=== PATIENT | male | born 1940 ===

== ENCOUNTER 2016-12-28 22:30 | Emergency (ER) | payer MEDICAID ==
--- NOTE | 2016-12-28 23:24 | C.PDOC ---
History Of Present Illness 76 y/o male presents to ED, [facility] for generalized weakness and fatigue. Patient admits to drinking alcohol tonight. Denies any injury or other complaints. Chief Complaint (Nursing): Weakness/Neurological Deficit History Per: Patient History/Exam Limitations: no limitations Onset/Duration Of Symptoms: Hrs Current Symptoms Are (Timing): Still Present Seizure Or Post-ictal Symptoms: None Fall Associated With With Symptoms: No Recent travel outside of the [place]: No Past Medical History Reviewed: Historical Data, Nursing Documentation, Vital Signs Vital Signs: Last Vital Signs Temp 97.6 F 12/29/16 03:03 Pulse 59 L 12/29/16 03:03 Resp 16 12/29/16 03:03 BP 111/65 12/29/16 03:03 Pulse Ox 95 12/29/16 05:26 - Medical History PMH: Diabetes Family History: States: Unknown Family Hx - Social History Hx Alcohol Use: No Hx Substance Use: No Review Of Systems Except As Marked, All Systems Reviewed And Found Negative. Constitutional: Negative for: Fever, Chills Cardiovascular: Negative for: Chest Pain Respiratory: Negative for: Cough, Shortness of Breath Gastrointestinal: Negative for: Nausea, Vomiting, Abdominal Pain Skin: Negative for: Rash Neurological: Negative for: Headache, Dizziness Physical Exam - Physical Exam Appears: Non-toxic, No Acute Distress, Other (+EtOH on breath, lethargic, no signs of injury, no focal deficits) Skin: Normal Color, Warm, Dry Head: Atraumatic, Normacephalic Chest: Symmetrical Cardiovascular: Rhythm Regular Respiratory: Normal Breath Sounds, No Rales, No Rhonchi, No Wheezing Gastrointestinal/Abdominal: Soft, No Tenderness, No Guarding, No Rebound Back: Normal Inspection Extremity: Normal ROM, Capillary Refill (< 2 sec. ) Neurological/Psych: Oriented x3, Other (no focal deficits) ED Course And Treatment - Laboratory Results Result Diagrams: 12/28/16 23:33 12/29/16 04:51 O2 Sat by Pulse Oximetry: 95 (RA) Pulse Ox Interpretation: Normal Progress Note: Labs ordered and reviewed. Reevaluation Time: 06:00 (Patient feels better aftyer IV hydration) Reassessment Condition: Improved Disposition Counseled Patient/Family Regarding: Diagnosis - Disposition Referrals: [facility] [Outside] Disposition: HOME/ ROUTINE Disposition Time: 06:00 Condition: STABLE Instructions: Dehydration (DC) - POA Present On Arrival: None - Clinical Impression Clinical Impression: Dehydration syndrome, Homelessness - Scribe Statement The provider has reviewed the documentation as recorded by the Vivi Jeffries Provider Scribe Attestation: All medical record entries made by the Saskiaibe were at my direction and personally dictated by me. I have reviewed the chart and agree that the record accurately reflects my personal performance of the history, physical exam, medical decision making, and the department course for this patient. I have also personally directed, reviewed, and agree with the discharge instructions and disposition.
[2016-12-28 23:35] LABS: BASO % 0.3 % (0.0-2.0); EOS # 0.1 K/uL (0.0-0.7); EOS % 1.6 % (0.0-4.0); HEMATOCRIT 37.4 % (35.0-51.0); LYMPH # 1.6 K/uL (1.0-4.3); LYMPH % 17.2 % (20.0-40.0); MEAN CELL VOLUME 91.8 fL (80.0-94.0); MEAN CORPUSCULAR HEMOGLOBIN 31.1 pg (27.0-31.0); MEAN CORPUSCULAR HGB CONC 33.9 g/dL (33.0-37.0); MEAN PLATELET VOLUME 8.8 fL (7.2-11.7); MONO % 11.2 % (0.0-10.0); RED CELL DISTRIBUTION WIDTH 14.1 % (11.5-14.5); WHITE BLOOD COUNT 9.1 K/uL (4.8-10.8)
[2016-12-28 23:43] LABS: CHLORIDE 99 mmol/L (98-107)
[2016-12-28 23:45] LABS: POTASSIUM 4.1 mmol/L (3.6-5.2); SODIUM 140 mmol/L (132-148)
[2016-12-28 23:47] LABS: ALB/GLOB RATIO 1.2 (1.0-2.1); ALKALINE PHOSPHATASE 108 U/L (38-126); ALT/SGPT 22 U/L (21-72); AST/SGOT 44 U/L (17-59); BILIRUBIN,TOTAL 1.1 mg/dL (0.2-1.3); BLOOD UREA NITROGEN 35 mg/dL (9-20); CARBON DIOXIDE 28 mmol/L (22-30); GFR AFRICAN-AMERICAN > 60
[2016-12-28 23:48] LABS: ALCOHOL SERUM < 10 mg/dl (0-10); CALCIUM 8.9 mg/dl (8.6-10.4); GLUCOSE,RANDOM 155 mg/dL (75-110)
[2016-12-29] MEDS ORDERED: Sodium Chloride 0.9% 1,000 ML IV ONE ×2 (00:22→00:23)
[2016-12-29 03:04] VITALS: RESP 16
[2016-12-29 04:52] LABS: URINE BILIRUBIN NEGATIVE (NEGATIVE); URINE BLOOD NEGATIVE (NEGATIVE); URINE COLOR Yellow (YELLOW); URINE GLUCOSE (UA) NORMAL (Normal); URINE KETONE NEGATIVE (NEGATIVE); URINE LEUKOCYTE ESTERASE NEG Leu/uL (Negative); URINE PROTEIN NEGATIVE (NEGATIVE); URINE UROBILINOGEN NORMAL mg/dL (0.2-1.0)
[2016-12-29 05:23] LABS: CHLORIDE 103 mmol/L (98-107); POTASSIUM 4.2 mmol/L (3.6-5.2); SODIUM 141 mmol/L (132-148)
[2016-12-29 05:26] LABS: BLOOD UREA NITROGEN 30 mg/dL (9-20); CARBON DIOXIDE 27 mmol/L (22-30); GFR AFRICAN-AMERICAN > 60; GLUCOSE,RANDOM 108 mg/dL (75-110)
[2016-12-29 05:27] LABS: CALCIUM 8.1 mg/dl (8.6-10.4)
[2016-12-29 05:58] VITALS: BP 131/64; PULSE 62; TEMP 98.4; O2SAT 98
== END 2016-12-29 06:02 | disposition home or self-care (01) ==
LOC: C.ER 22:30
DX: E86.0 Dehydration (principal); Z59.0 Homelessness
CPT/HCPCS: 80048; 80053; 80320; 80324; 80345; 80346; 80349; 80353; 80358; 80361; 81001; 82948; 83992; 85025; 96360; 96361; 99285; J7040

== ENCOUNTER 2016-12-29 11:51 | Inpatient (IN) | payer MEDICAID ==
[2016-12-29 13:35] LABS: BASO % 0.6 % (0.0-2.0); EOS # 0.1 K/uL (0.0-0.7); EOS % 1.6 % (0.0-4.0); HEMATOCRIT 40.9 % (35.0-51.0); LYMPH # 1.5 K/uL (1.0-4.3); LYMPH % 19.4 % (20.0-40.0); MEAN CELL VOLUME 93.2 fL (80.0-94.0); MEAN CORPUSCULAR HEMOGLOBIN 30.9 pg (27.0-31.0); MEAN CORPUSCULAR HGB CONC 33.1 g/dL (33.0-37.0); MEAN PLATELET VOLUME 9.5 fL (7.2-11.7); MONO # 0.8 K/uL (0.0-0.8); MONO % 9.6 % (0.0-10.0); RED CELL DISTRIBUTION WIDTH 14.2 % (11.5-14.5); WHITE BLOOD COUNT 7.9 K/uL (4.8-10.8)
[2016-12-29 13:42] LABS: CHLORIDE 101 mmol/L (98-107); SODIUM 142 mmol/L (132-148)
[2016-12-29 13:43] LABS: POTASSIUM 4.1 mmol/L (3.6-5.2)
[2016-12-29 13:44] LABS: CHOLESTEROL 129 mg/dL (0-199); GFR AFRICAN-AMERICAN > 60
--- NOTE | 2016-12-29 13:44 | RAD ---
HISTORY: adm COMPARISON: None available TECHNIQUE: Chest, one view. FINDINGS: Examination limited by habitus, patient obliquity, and hypoinflation. LUNGS: Patchy right lower lobe opacities may reflect atelectasis or pneumonia. No large pleural effusion or definite pneumothorax. Please note that chest x-ray has limited sensitivity for the detection of pulmonary masses. CARDIOVASCULAR: Heart size appears top normal. OSSEOUS STRUCTURES: Degenerative changes of the spine. VISUALIZED UPPER ABDOMEN: Elevation of the left hemidiaphragm. OTHER FINDINGS: None. IMPRESSION: Patchy right lower lobe opacities may reflect atelectasis or pneumonia.
[2016-12-29 13:45] LABS: ALB/GLOB RATIO 1.2 (1.0-2.1); ALKALINE PHOSPHATASE 115 U/L (38-126); ALT/SGPT 18 U/L (21-72); AST/SGOT 55 U/L (17-59); BILIRUBIN,TOTAL 1.3 mg/dL (0.2-1.3); BLOOD UREA NITROGEN 28 mg/dL (9-20); CALCIUM 8.8 mg/dl (8.6-10.4); CARBON DIOXIDE 29 mmol/L (22-30); GLUCOSE,RANDOM 87 mg/dL (75-110); TOTAL PROTEIN 7.4 g/dL (6.3-8.3)
--- NOTE | 2016-12-29 14:04 | CT ---
PROCEDURE: CT HEAD WITHOUT CONTRAST. HISTORY: confusion, falls, ? SDH COMPARISON: None available. TECHNIQUE: Axial computed tomography images were obtained through the head/brain without intravenous contrast. Radiation dose: Total exam DLP = 810.37 mGy-cm. This CT exam was performed using one or more of the following dose reduction techniques: Automated exposure control, adjustment of the mA and/or kV according to patient size, and/or use of iterative reconstruction technique. FINDINGS: HEMORRHAGE: Large bilateral frontoparietal subdural hematomas are present left larger than right. The right-sided which is smaller and more hypodense than the left. The age of the left the collection appears subacute to chronic or as the right sided collection appears more chronic of though there are areas of more hyperdense hemorrhage within the right-sided collection. The collections exert significant mass effect with compression of both cerebral hemispheres left greater than right. There is slight illz-wi-sdnmr midline shift with of the septum pellucidum shift across midline by approximately 6.58 mm. Additionally, there may also be mild diffuse cerebral edema. Note these findings were discussed with Dr. Estrada at 1:45 p.m. with written down and read back BRAIN: As above. There may also be a questionable edema versus mild localized pre-existing periventricular white matter ischemic changes left apparent frontal horn white matter VENTRICLES: Ventricles are significantly compressed by the aforementioned mass effect as above. CALVARIUM: Unremarkable. PARANASAL SINUSES: Unremarkable as visualized. No significant inflammatory changes. MASTOID AIR CELLS: Unremarkable as visualized. No inflammatory changes. OTHER FINDINGS: None. IMPRESSION: Large bilateral frontoparietal subdural hematomas left larger than right. Left side is subacute to chronic and right-sided more chronic in appearance. Significant mass effect with compression of both cerebral hemispheres and mild gzll-xt-bhnqz midline shift of. Marked compression of the ventricles as well. Findings also suggest mild diffuse cerebral edema. Emergency room physician aware as described.
--- NOTE | 2016-12-29 14:32 | C.PDOC ---
History Of Present Illness 76 y/o male presents to the ED in [facility] for ataxia. Pt was seen in ED overnight for homelessness and questionable alcohol abuse. pt states hasn't drank alcohol in years. Lives in [facility]. Pt denies difficulty walking ; has no complaints, requesting ride home. Time Seen by Provider: 12/29/16 13:08 Chief Complaint (Nursing): Altered Mental Status History Per: Patient History/Exam Limitations: None Onset/Duration Of Symptoms: Hrs Current Symptoms Are (Timing): Still Present Exacerbating Factor(s): Unknown Recent travel outside of the [place]: No Past Medical History Reviewed: Historical Data, Nursing Documentation, Vital Signs Vital Signs: Last Vital Signs Temp 98.0 F 12/29/16 14:11 Pulse 55 L 12/29/16 14:11 Resp 17 12/29/16 14:11 BP 137/65 12/29/16 14:11 Pulse Ox 96 12/29/16 14:52 - Medical History PMH: Diabetes Family History: States: Unknown Family Hx - Social History Hx Alcohol Use: No Hx Substance Use: No Review Of Systems Except As Marked, All Systems Reviewed And Found Negative. Neurological: Positive for: Other (ataxia) Physical Exam - Physical Exam Appears: Non-toxic, No Acute Distress, Other (egyptian speaking) Skin: Warm, Dry, No Rash, Other (No wounds noted) Head: Atraumatic, Normacephalic Neck: Normal ROM, Supple Chest: Symmetrical Cardiovascular: Rhythm Regular Respiratory: Normal Breath Sounds, No Rales, No Rhonchi, No Wheezing Gastrointestinal/Abdominal: Soft, No Tenderness Extremity: Bilateral: Atraumatic Neurological/Psych: Oriented x3 ED Course And Treatment - Laboratory Results Result Diagrams: 12/29/16 13:20 12/29/16 13:20 Lab Interpretation: Normal (inr 1.0) ECG: Interpreted By [facility] ECG Rhythm: Sinus Rhythm ECG Interpretation: Normal Rate From EC (BPM) O2 Sat by Pulse Oximetry: 96 (room air) Pulse Ox Interpretation: Normal - Radiology CXR: Interpreted by [facility] CXR Interpretation: Yes: No Acute Disease, Other (hazy RLL ? atalectasis, low susp PNA) - CT Scan/US CT head Other Rad Studies (CT/US): Read By Radiologist, Radiology Report Reviewed CT/US Interpretation: Accession No. : [id number]. Patient Name / ID : CHARISSE SAXENA / [id number]. Exam Date : 12/29/2016 13:32:41 ( Approved ). Study Comment : Sex / Age : M / [id number]. Creator : abi shaikh. Dictator : Oral Mcintosh MD. Health Teacher : Assistant Case Manager : Oral Mcintosh MD. Approver2 : Report Date : 12/29/2016 13:37:20. My Comment : . PROCEDURE: CT HEAD WITHOUT CONTRAST. HISTORY: confusion, falls, ? SDH. COMPARISON: None available. TECHNIQUE: Axial computed tomography images were obtained through the head/brain without intravenous contrast. Radiation dose: Total exam DLP = 810.37 mGy-cm. This CT exam was performed using one or more of the following dose reduction techniques: Automated exposure control, adjustment of the mA and/or kV according to patient size, and/or use of iterative reconstruction technique. FINDINGS: HEMORRHAGE: Large bilateral frontoparietal subdural hematomas are present left larger than right. The right -sided which is smaller and more hypodense than the left. The age of the left the collection appears subacute to chronic or as the right sided collection appears more chronic of though there are areas of more hyperdense hemorrhage within the right-sided collection. The collections exert significant mass effect with compression of both cerebral hemispheres left greater than right. There is slight dajl-rc-dtgkl midline shift with of the septum pellucidum shift across midline by approximately 6.58 mm. Additionally, there may also be mild diffuse cerebral edema. Note these findings were discussed with Dr. Estrada at 1: 45 p.m. with written down and read back. BRAIN: As above. There may also be a questionable edema versus mild localized pre-existing periventricular white matter ischemic changes left apparent frontal horn white matter. VENTRICLES: Ventricles are significantly compressed by the aforementioned mass effect as above. CALVARIUM: Unremarkable. PARANASAL SINUSES: Unremarkable as visualized. No significant inflammatory changes. MASTOID AIR CELLS: Unremarkable as visualized. No inflammatory changes. OTHER FINDINGS: None. IMPRESSION: Large bilateral frontoparietal subdural hematomas left larger than right. Left side is subacute to chronic and right-sided more chronic in appearance. Significant mass effect with compression of both cerebral hemispheres and mild zaug-ff-essxt midline shift of. Marked compression of the ventricles as well. Findings also suggest mild diffuse cerebral edema. Emergency room physician aware as described. Reevaluation Time: 14:31 Reassessment Condition: Improved - Physician Consult Information Outcome Of Conversation: 1430: d/w Dr. Gill- NSGY plate finisher- ok to Tele Obs ( considering probable chronic nature of SDH's and pt's stability), hydrate and HOB 30^, plan for surgery in AM, NPO 12MN. 1430: d/w Dr Garzon- Hospitalist Food Service Aide- ok to Tele Obs. Medical Decision Making Medical Decision Making: b/l subacute/chronic SDH's Disposition Doctor Will See Patient In The: Hospital Counseled Patient/Family Regarding: Studies Performed, Diagnosis - Disposition Disposition: HOSPITALIZED Disposition Time: 14:32 Condition: GOOD - Clinical Impression Clinical Impression: Ataxia, Subdural hematoma - Scribe Statement The provider has reviewed the documentation as recorded by the Vivi Beck Provider Attestation: All medical record entries made by the Vivi were at my direction and personally dictated by me. I have reviewed the chart and agree that the record accurately reflects my personal performance of the history, physical exam, medical decision making, and the department course for this patient. I have also personally directed, reviewed, and agree with the discharge instructions and disposition.
--- NOTE | 2016-12-29 14:45 | CP.PCM.HP ---
<Katrin Burton - Last Filed: 12/29/16 20:07> History of Present Illness - History of Present Illness History of Present Illness: Please note patient is AO x 1 and is a poor historian; he is oriented to self but does not know where he is and believes it is 1987. HPI: Patient is a 76 year old male PMHx of Hypertension, Hypercholesterolemia, DM2 who was found in the lobby having ataxic gait and was sent to the ED. As per patient he was not having any difficulties walking. He was seen in the ED on 12/28 for generalized weakness and fatigue and was discharged for dehydration syndrome. On this admission patient had no acute complaints but was oriented only to self; he believed it was 1987 and was not sure where he was. He reports that he had a fall on Wednesday which was witnessed by his girlfriend in a parking lot. He denies any loss of consciousness and believes he fell on his side and does not remember hitting his head. Patient reports he does not drink and has not had a drink in 14 years. He denied any acute headaches, dizziness, chest pain, difficulty breathing, abdominal pain, nausea, vomiting, bowel/bladder complaints, bowel/bladder incontinence, difficulty walking, pain in his legs bilaterally, easy bruising, easy bleeding, focal deficits, changes in weight/ appetite. Patient reports a lot of sick contacts in the [facility]. PMD: Dr. Deluna PMHx: Hypertension, Hypercholesterolemia, DM2 Meds: Lipitor 20mg PO HS, Coreg 6.25mg PO BID, Digoxin 0.25mg PO daily, Lasix 20mg PO BID, Lisinopril 20mg PO daily, Metformin 500mg PO BID, ASA 81mg po daily ALL: NKDA PSur [facility] cardiac stents at [facility]?, Prostate surgery 1980 in [place] PHospitalizations: denies PED: 12/28 for dehydration FamHx: mother with DM and father with unknown cancer SocHx: reports he used to smoke 2 cigarettes/ day and drink alcohol but after being incarcerated in the 80s he quit everything. 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 Patient denies any drug use. He lives at [facility]. ROS: denied headaches, dizziness, chest pain, difficulty breathing, abdominal pain, nausea, vomiting, bowel/bladder complaints, bowel/bladder incontinence, difficulty walking, pain in his legs bilaterally, easy bruising, easy bleeding, focal deficits, changes in weight/appetite. ED Course: routine labwork, head CT showing large bilateral frontoparietal subdural hematomas left larger than right. Left side is subacute to chronic and right-sided more chronic in appearance. Significant mass effect with compression of both cerebral hemispheres and mild wpnp-uq-pmqti midline shift of. Marked compression of the ventricles as well. Findings also suggest mild diffuse cerebral edema; CXR showing patchy R lower lobe opacities reflecting posisble atelectasis or pneumonia, EKG showing sinus bradycardia with 1st degree AV block. Present on Admission - Present on Admission Any Indicators Present on Admission: No Review of Systems - Constitutional Constitutional: As Per HPI. absent: Chills, Fever - EENT Eyes: As Per HPI. absent: Blurred Vision Ears: As Per HPI. absent: Dizziness Nose/Mouth/Throat: As Per HPI. absent: Sore Throat - Cardiovascular Cardiovascular: As Per HPI. absent: Chest Pain, Dyspnea, Leg Edema, Palpitations - Respiratory Respiratory: As Per HPI. absent: Cough, Dyspnea, Dyspnea on Exertion, Chest Congestion - Gastrointestinal Gastrointestinal: As Per HPI. absent: Abdominal Pain, Constipation, Diarrhea, Nausea, Vomiting - Genitourinary Genitourinary: As Per HPI. absent: Change in Urinary Stream, Dysuria, Urinary Incontinence - Musculoskeletal Musculoskeletal: As Per HPI. absent: Abnormal Gait, Back Pain, Muscle Weakness , Numbness, Tingling - Integumentary Integumentary: As Per HPI. absent: Dry Skin, Rash - Neurological Neurological: As Per HPI. absent: Abnormal Gait, Dizziness, Numbness, Focal Weakness, Headaches, Memory Loss, Syncope, Tingling - Psychiatric Psychiatric: As Per HPI, Anxiety - Endocrine Endocrine: As Per HPI. absent: Polydipsia, Polyphagia, Polyuria - Hematologic/Lymphatic Hematologic: As Per HPI. absent: Easy Bleeding, Easy Bruising, Lymphadenopathy Past Patient History - Past Social History Smoking Status: Never Smoked - ENDOCRINE/METABOLIC Hx Diabetes Mellitus Type 2: Yes - PSYCHIATRIC Hx Substance Use: No - ANESTHESIA Hx Anesthesia: Yes Hx Anesthesia Reactions: No Meds Allergies/Adverse Reactions: Allergies Allergy/AdvReac Type Severity Reaction Status Date / Time No Known Allergies Allergy Verified 12/29/16 12:23 Physical Exam - Constitutional Appears: Non-toxic, No Acute Distress, Confused (but follows commands well) - Head Exam Head Exam: ATRAUMATIC, NORMAL INSPECTION, NORMOCEPHALIC - Eye Exam Eye Exam: EOMI, Normal appearance. absent: Conjunctival injection, Scleral icterus Pupil Exam: NORMAL ACCOMODATION - ENT Exam ENT Exam: Mucous Membranes Moist - Neck Exam Neck exam: Positive for: Full Rom, Normal Inspection. Negative for: Tenderness - Respiratory Exam Respiratory Exam: Clear to Auscultation Bilateral, NORMAL BREATHING PATTERN. absent: Rales, Rhonchi, Wheezes - Cardiovascular Exam Cardiovascular Exam: Bradycardia, REGULAR RHYTHM, +S1, +S2. absent: Systolic Murmur - GI/Abdominal Exam GI & Abdominal Exam: Normal Bowel Sounds, Soft. absent: Firm, Guarding, Rigid, Tenderness - Extremities Exam Extremities exam: Positive for: normal capillary refill, normal inspection, pedal pulses present. Negative for: calf tenderness, pedal edema, tenderness - Back Exam Back exam: NORMAL INSPECTION. absent: rash noted, vertebral tenderness Additional comments: lipoma noted on upper back - Neurological Exam Neurological exam: Altered, CN II-XII Intact Additional comments: AO x 1 to self - Psychiatric Exam Psychiatric exam: Normal Affect, Normal Mood - Skin Skin Exam: Dry, Intact, Normal Color, Warm Results - Vital Signs Recent Vital Signs: Last Vital Signs Temp 98.0 F 12/29/16 14:11 Pulse 55 L 12/29/16 14:11 Resp 17 12/29/16 14:11 BP 137/65 12/29/16 14:11 Pulse Ox 96 12/29/16 14:33 - Labs Result Diagrams: 12/29/16 13:20 12/29/16 13:20 Labs: Laboratory Results - last 24 hr 12/29/16 12/29/16 12/29/16 12:51 13:20 13:20 WBC 7.9 RBC 4.39 L Hgb 13.6 Hct 40.9 MCV 93.2 MCH 30.9 MCHC 33.1 RDW 14.2 Plt Count 163 MPV 9.5 Neut % (Auto) 68.8 Lymph % (Auto) 19.4 L Maries % (Auto) 9.6 Eos % (Auto) 1.6 Baso % (Auto) 0.6 Neut # 5.4 Lymph # 1.5 Maries # 0.8 Eos # 0.1 Baso # 0.0 PT 11.3 INR 1.0 APTT 26 Sodium Potassium Chloride Carbon Dioxide Anion Gap BUN Creatinine Est GFR ( Amer) Est GFR (Non-Af Amer) POC Glucose (mg/dL) 109 Random Glucose Hemoglobin A1c Calcium Total Bilirubin AST ALT Alkaline Phosphatase Troponin I NT-Pro-B Natriuret Pep Total Protein Albumin Globulin Albumin/Globulin Ratio Triglycerides Cholesterol LDL Cholesterol Direct HDL Cholesterol 12/29/16 12/29/16 13:20 13:20 WBC RBC Hgb Hct MCV MCH MCHC RDW Plt Count MPV Neut % (Auto) Lymph % (Auto) Maries % (Auto) Eos % (Auto) Baso % (Auto) Neut # Lymph # Maries # Eos # Baso # PT INR APTT Sodium 142 Potassium 4.1 Chloride 101 Carbon Dioxide 29 Anion Gap 16 BUN 28 H Creatinine 0.8 Est GFR ( Amer) > 60 Est GFR (Non-Af Amer) > 60 POC Glucose (mg/dL) Random Glucose 87 Hemoglobin A1c 6.8 H Calcium 8.8 Total Bilirubin 1.3 AST 55 ALT 18 L Alkaline Phosphatase 115 Troponin I 0.0260 NT-Pro-B Natriuret Pep 645 Total Protein 7.4 Albumin 4.0 Globulin 3.4 Albumin/Globulin Ratio 1.2 Triglycerides 81 Cholesterol 129 LDL Cholesterol Direct 62 HDL Cholesterol 46 Assessment & Plan - Assessment and Plan (Free Text) Assessment: 76 year old male PMHx of Hypertension, Hypercholesterolemia, DM2 who was found in the lobby having ataxic gait Plan: Bilateral frontoparietal subdural hematomas left larger than right Admit to TELE Head CT: large bilateral frontoparietal subdural hematomas left larger than right. Left side is subacute to chronic and right-sided more chronic in appearance. Significant mass effect with compression of both cerebral hemispheres and mild dpdd-bi-wzehw midline shift of. Marked compression of the ventricles as well. Findings also suggest mild diffuse cerebral edema hold home dose ASA VTE ppx c/i secondary to bleed Neurocheck Q2H For OR 12/[address] Gill on board- help appreciated Bradycardia Nonsymptomatic Patient on TELE EKG showed sinus bradycardia with 1st degree AV block Home dose Coreg changed to 3.125mg PO BID Monitor HR Hx of HTN Coreg 3.125mg PO BID Digoxin 0.25mg PO daily Lisinopril 20mg PO daily Crestor 20mg PO HS Lasix 20mg PO BID Monitor BP Hx of DM Accucheck ACHS Low dose RISS PPX SCDs VTE ppx c/i Pepcid 20mg PO BID Patient for OR in the AM Heart healthy moderate carb diet NPO after midnight for OR 12/[address] Moria Burton PGY1 <Benton Pizarro - Last Filed: 01/20/17 15:20> Results - Vital Signs Recent Vital Signs: Last Vital Signs Temp 98.0 F 01/13/17 15:00 Pulse 108 H 01/13/17 15:00 Resp 20 01/13/17 15:00 BP 130/75 01/13/17 15:00 Pulse Ox 97 01/13/17 15:00 - Labs Result Diagrams: 01/13/17 07:31 01/13/17 07:31 Attending/Attestation - Attestation I have personally seen and examined this patient.: Yes I have fully participated in the care of the patient.: Yes I have reviewed all pertinent clinical information: Yes Notes (Text): Patient seen and examined with the resident. Agree with the resident's evaluation, assessment and plan. Bilateral frontoparietal subdural hematomas left larger than right Admit to TELE Head CT: large bilateral frontoparietal subdural hematomas left larger than right. Left side is subacute to chronic and right-sided more chronic in appearance. Significant mass effect with compression of both cerebral hemispheres and mild sqtp-sl-hozag midline shift of. Marked compression of the ventricles as well. Findings also suggest mild diffuse cerebral edema hold home dose ASA VTE ppx c/i secondary to bleed Neurocheck Q2H For OR 12/[address] Gill on board- help appreciated Bradycardia Nonsymptomatic Patient on TELE EKG showed sinus bradycardia with 1st degree AV block Home dose Coreg changed to 3.125mg PO BID Monitor HR
[2016-12-29 16:27] LABS: RBC URINE < 1 /hpf (0-3); URINE BACTERIA RARE (<OCC); URINE BILIRUBIN NEGATIVE (NEGATIVE); URINE BLOOD NEGATIVE (NEGATIVE); URINE COLOR Yellow (YELLOW); URINE GLUCOSE (UA) NORMAL (Normal); URINE KETONE TRACE mg/dL (NEGATIVE); URINE LEUKOCYTE ESTERASE NEG Leu/uL (Negative); URINE PROTEIN NEGATIVE (NEGATIVE); URINE UROBILINOGEN NORMAL mg/dL (0.2-1.0); WBC URINE < 1 /hpf (0-5)
[2016-12-29] MEDS ORDERED: Digoxin 250 mcg (0.25 mg) Tab PO SCH (18:00)
[2016-12-29 18:50] VITALS: PULSE 55
[2016-12-29] MEDS: (Novolog) Insulin Aspart, Recombinant 100 u/ml 10 ml vial SC SCH (22:12)
[2016-12-30 02:24] LABS: BASO % 0.6 % (0.0-2.0); EOS # 0.1 K/uL (0.0-0.7); EOS % 1.7 % (0.0-4.0); LYMPH # 1.7 K/uL (1.0-4.3); LYMPH % 21.9 % (20.0-40.0); MEAN CELL VOLUME 92.2 fL (80.0-94.0); MEAN CORPUSCULAR HEMOGLOBIN 30.9 pg (27.0-31.0); MEAN CORPUSCULAR HGB CONC 33.5 g/dL (33.0-37.0); MEAN PLATELET VOLUME 9.3 fL (7.2-11.7); MONO # 0.9 K/uL (0.0-0.8); MONO % 11.4 % (0.0-10.0); NRBC % 0.1 % (0.0-2.0); RED CELL DISTRIBUTION WIDTH 14.1 % (11.5-14.5)
[2016-12-30 02:35] LABS: CHLORIDE 100 mmol/L (98-107); POTASSIUM 3.9 mmol/L (3.6-5.2); SODIUM 138 mmol/L (132-148)
[2016-12-30 02:37] LABS: ALB/GLOB RATIO 1.1 (1.0-2.1); AST/SGOT 49 U/L (17-59); CARBON DIOXIDE 28 mmol/L (22-30); GFR AFRICAN-AMERICAN > 60; INR 1.1; TOTAL PROTEIN 6.4 g/dL (6.3-8.3)
[2016-12-30 02:38] LABS: ALKALINE PHOSPHATASE 89 U/L (38-126); ALT/SGPT 28 U/L (21-72); BLOOD UREA NITROGEN 22 mg/dL (9-20); CALCIUM 8.6 mg/dl (8.6-10.4); GLUCOSE,RANDOM 92 mg/dL (75-110); MAGNESIUM 1.8 mg/dL (1.6-2.3); PHOSPHOROUS 3.4 mg/dL (2.5-4.5)
--- NOTE | 2016-12-30 07:27 | CP.PCM.PN ---
<Stephanie Chang - Last Filed: 12/30/16 13:17> Subjective - Date & Time of Evaluation Date of Evaluation: 12/30/16 Time of Evaluation: 07:45 - Subjective Subjective: PGY-1 Medicine Note- Dr. Garzon's service Pt seen and examined in no acute distress. Nursing stated that patient was bradycardic overnight. Pt awake and intelligently alert; however only oriented to self. Patient denies any pain, palpitations, headaches, lightheadedness, visual changes, dyspnea, nausea, vomiting or diarrhea at this time. Objective - Vital Signs/Intake and Output Vital Signs (last 24 hours): Temp Pulse Resp BP Pulse Ox 97.8 F 50 L 20 121/61 100 12/30/16 06:00 12/30/16 06:00 12/30/16 06:00 12/30/16 06:00 12/30/16 06:00 Intake and Output: 12/30/16 12/30/16 06:59 18:59 Intake Total 300 Output Total 200 Balance 100 - Medications Medications: Current Medications Carvedilol (Coreg) 3.125 mg PO BID [facility] Last Admin: 12/29/16 18:49 Dose: Not Given Digoxin (Lanoxin) 0.25 mg PO DAILY@1800 [facility] Last Admin: 12/29/16 18:49 Dose: Not Given Famotidine (Pepcid) 20 mg PO BID [facility] Last Admin: 12/29/16 22:11 Dose: 20 mg Furosemide (Lasix) 20 mg PO BID [facility] Last Admin: 12/29/16 18:41 Dose: 20 mg Insulin Aspart (Novolog) 0 unit SC [facility] PRN Reason: Protocol Last Admin: 12/29/16 22:12 Dose: Not Given Lisinopril (Zestril) 20 mg PO DAILY [facility] Last Admin: 12/29/16 18:41 Dose: 20 mg Pneumococcal Polyvalent Vaccine (Pneumovax 23 Vaccine) 0.5 ml IM .ONCE ONE Stop: 01/01/17 10:01 Rosuvastatin Calcium (Crestor) 20 mg PO HS [facility] Last Admin: 12/29/16 22:11 Dose: 20 mg - Labs Labs: 12/30/16 02:18 12/30/16 02:18 PT 12.2 SECONDS (9.7-12.2) 12/30/16 02:18 INR 1.1 12/30/16 02:18 APTT 27 SECONDS (21-34) 12/30/16 02:18 - Constitutional Appears: Non-toxic, No Acute Distress - Head Exam Head Exam: NORMOCEPHALIC - Eye Exam Eye Exam: EOMI, PERRL - ENT Exam ENT Exam: Mucous Membranes Moist - Neck Exam Neck Exam: Full ROM - Respiratory Exam Respiratory Exam: NORMAL BREATHING PATTERN. absent: Wheezes - Cardiovascular Exam Cardiovascular Exam: REGULAR RHYTHM, +S1, +S2 - GI/Abdominal Exam GI & Abdominal Exam: Soft, Normal Bowel Sounds - Extremities Exam Extremities Exam: Full ROM - Neurological Exam Neurological Exam: Altered, Awake. absent: Oriented x3 - Psychiatric Exam Psychiatric exam: Normal Affect, Normal Mood - Skin Skin Exam: Dry, Intact, Warm Assessment and Plan - Assessment and Plan (Free Text) Assessment: Bilateral frontoparietal subdural hematomas left larger than right Telemetry Head CT 12/30: interval mild worsening of left subdural hematoma since prior exam ; Refer to full report. Head CT on admission 12/29: large bilateral frontoparietal subdural hematomas left larger than right. Left side is subacute to chronic and right-sided more chronic in appearance. Significant mass effect with compression of both cerebral hemispheres and mild fptk-[id number]-yxctb midline shift of. Marked compression of the ventricles as well. Findings also suggest mild diffuse cerebral edema hold home dose ASA VTE ppx c/i secondary to bleed Neurocheck Q2H For OR today Neurosurgery Dr. Gill on board-F/U recommendations Bradycardia Asymptomatic, oxygen via nc EKG showed sinus bradycardia with 1st degree AV block Coreg and Digoxin held Monitor HR Hx of HTN Coreg 3.125mg PO BID-Held bc of bradycardia Digoxin 0.25mg PO daily-Held bc of bradycardia Lisinopril 20mg PO daily Crestor 20mg PO HS Lasix 20mg PO BID Monitor BP Hx of DM Accucheck ACHS Low dose RISS Hgb A1c 6.8 PPX SCDs VTE ppx c/i bc of bleed Pepcid 20mg PO BID-held Heart healthy moderate carb diet NPO after midnight for OR 12/30 <Michael Garzon H - Last Filed: 12/30/16 14:47> Objective - Vital Signs/Intake and Output Vital Signs (last 24 hours): Temp Pulse Resp BP Pulse Ox 97.0 F L 48 L 20 137/54 L 99 12/30/16 08:48 12/30/16 09:17 12/30/16 08:48 12/30/16 08:48 12/30/16 08:48 Intake and Output: 12/30/16 12/30/16 06:59 18:59 Intake Total 300 Output Total 200 Balance 100 - Medications Medications: Current Medications Carvedilol (Coreg) 3.125 mg PO BID [facility] Last Admin: 12/29/16 18:49 Dose: Not Given Digoxin (Lanoxin) 0.25 mg PO DAILY@1800 [facility] Last Admin: 12/29/16 18:49 Dose: Not Given Famotidine (Pepcid) 20 mg PO BID [facility] Last Admin: 12/30/16 10:18 Dose: Not Given Furosemide (Lasix) 20 mg PO BID [facility] Last Admin: 12/30/16 10:18 Dose: Not Given Insulin Aspart (Novolog) 0 unit SC [facility] PRN Reason: Protocol Last Admin: 12/30/16 11:38 Dose: Not Given Lisinopril (Zestril) 20 mg PO DAILY [facility] Last Admin: 12/30/16 10:18 Dose: Not Given Pneumococcal Polyvalent Vaccine (Pneumovax 23 Vaccine) 0.5 ml IM .ONCE ONE Stop: 01/01/17 10:01 Rosuvastatin Calcium (Crestor) 20 mg PO [facility] Last Admin: 12/29/16 22:11 Dose: 20 mg - Labs Labs: 12/30/16 02:18 12/30/16 02:18 PT 12.2 SECONDS (9.7-12.2) 12/30/16 02:18 INR 1.1 12/30/16 02:18 APTT 27 SECONDS (21-34) 12/30/16 02:18 Attending/Attestation - Attestation I have personally seen and examined this patient.: Yes I have fully participated in the care of the patient.: Yes I have reviewed all pertinent clinical information, including history, physical exam and plan: Yes Notes (Text): 12/30/16 14:44 Medical attending: Patient was seen and examined by me, agrees the above note by medical case manager. Patient was seen with the medical case manager. The patient was alert, following commands, and appeared to be following this commands appropriately. He was able to stick his tongue out, elevate his arms, shake my hand on command. His extraocular eye muscles were intact. We did not have him stand and walk with us, per review of the HPI he was very ataxic lobby of the hospital. When I saw him he did not appear to be in any acute distress. We reviewed the CAT scan that he initially had yesterday as well as the new CAT scan done earlier this morning. Currently the patient is pending a neurosurgical evaluation for the subdural hematomas bilaterally. At this time we will try to control the blood pressure as much as possible. However it should be noted that can be bradycardic especially at nighttime. Currently he is heart rate is in the high 50s Thank you very much, Michael Garzon 12/30/16 14:47
[2016-12-30] MEDS: (Novolog) Insulin Aspart, Recombinant 100 u/ml 10 ml vial SC SCH ×3 (07:40→18:40)
[2016-12-30] MEDS ORDERED: cefTRIAXone IV 1 gm in Dextros 50 ML IVPB ONE ×2 (09:07→15:48)
[2016-12-30] MEDS ORDERED: Absorbable Gelatin Sponge Size 100 ONE (09:07)
[2016-12-30] MEDS ORDERED: Bacitracin Ointment 30 GM TUBE ONE (09:07)
[2016-12-30] MEDS ORDERED: Bacitracin 50,000 UNIT in Sodium Chloride 0.9% Irrig 1,000 ML IR SCH (09:07)
[2016-12-30] MEDS ORDERED: Thrombin Topical 20,000 Intl Units Spray Kit TOP ONE (09:07)
--- NOTE | 2016-12-30 10:51 | CT ---
PROCEDURE: CT HEAD WITHOUT CONTRAST. HISTORY: Worsening bradycardia - re-evaluate bleed COMPARISON: Comparison is made to the previous study dated 12/29/2016 TECHNIQUE: Axial computed tomography images were obtained through the head/brain without intravenous contrast. Radiation dose: Total exam DLP = 957.03 mGy-cm. This CT exam was performed using one or more of the following dose reduction techniques: Automated exposure control, adjustment of the mA and/or kV according to patient size, and/or use of iterative reconstruction technique. FINDINGS: HEMORRHAGE: Interval mild increase in the size of subacute left subdural hematoma since the previous exam. Again seen is chronic right subdural hematoma contains foci of high attenuation suggestive of small acute on chronic subdural hemorrhage. No significant interval change in the size of the right subdural hematoma compared to the previous exam. BRAIN: Interval mild worsening of mass effect and compression on the brain since the previous exam. New yntx-or-zniih midline shift is again noted measures approximately 6 millimeter. Diffuse effacement of the brain sulci is again noted slightly worse compared to the previous study. Oohx-qp-vacicqyx effacement of the basilar Systane is also noted. VENTRICLES: Interval mild further decrease in the size of the lateral ventricle due to compression by the bilateral subdural hematoma since the previous exam. CALVARIUM: Unremarkable. PARANASAL SINUSES: Unremarkable as visualized. No significant inflammatory changes. MASTOID AIR CELLS: Unremarkable as visualized. No inflammatory changes. OTHER FINDINGS: None. IMPRESSION: Interval mild worsening of the left subdural hematoma since the previous exam. Interval mild worsening of the mass effect on the left brain and srhb-ee-laypr midline shift since the previous study. Interval worsening of effacement of the basilar Systane since the previous exam. The possibility of subfalcine and transtentorial herniation particularly on the left side should be considered . Preliminary report was submitted by [facility].
--- NOTE | 2016-12-30 10:59 | CARD ---
APPROVED REPORT EKG Measurement Heart [id number] <Conclusion> Sinus bradycardia with 1st degree AV block Left bundle branch block Abnormal ECG
[2016-12-30] MEDS ORDERED: Sodium Chloride 0.9% 1,000 ML IV ONE ×3 (15:15→17:58)
[2016-12-30] MEDS ORDERED: Rocuronium 10 mg/ml (5 ml) ONE (15:19)
[2016-12-30] MEDS ORDERED: Propofol 10 mg/ml Inj (20 ML) ONE ×2 (15:19→17:11)
[2016-12-30] MEDS ORDERED: Neostigmine Methylsulfate 3mg/3ml Syringe IV ONE (16:40)
--- NOTE | 2016-12-30 17:16 | CP.PCM.CON ---
History of Present Illness - History of Present Illness History of Present Illness: Consult Note for nutritional health coach, Dr. Kitchen HPI: (adapted from admission H&P) Patient is a 76 year old male PMHx of Hypertension, Hypercholesterolemia, DM2 who was found in the lobby having ataxic gait and was sent to the ED. As per patient he was not having any difficulties walking. He was seen in the ED on 12/28 for generalized weakness and fatigue and was discharged for dehydration syndrome. On this admission patient had no acute complaints but was oriented only to self; he believed it was 1987 and was not sure where he was. He reports that he had a fall on Wednesday which was witnessed by his girlfriend in a parking lot. He denies any loss of consciousness and believes he fell on his side and does not remember hitting his head. Patient reports he does not drink and has not had a drink in 14 years. He denied any acute headaches, dizziness, chest pain, difficulty breathing, abdominal pain, nausea, vomiting, bowel/bladder complaints, bowel/bladder incontinence, difficulty walking, pain in his legs bilaterally, easy bruising, easy bleeding, focal deficits, changes in weight/ appetite. Patient reports a lot of sick contacts in the [facility]. [facility] Head ordered on presentation showed large bilateral frontoparietal subdural hematomas, left larger than right. Left side is subacute to chronic and right- sided more chronic in appearance. Significant mass effect with compression of both cerebral hemispheres and mild ggxw-go-kletu midline shift. Marked compression of the ventricles as well. Findings also suggest mild diffuse cerebral edema; CXR showing patchy R lower lobe opacities reflecting possible atelectasis or pneumonia, EKG showing sinus bradycardia with 1st degree AV block. Pt admitted to ICU s/p craniotomy. PMHx: Hypertension, Hypercholesterolemia, DM2 PSur 3 cardiac stents at [facility]?, Prostate surgery 1980 in [place] Home Meds: Lipitor 20mg PO HS, Coreg 6.25mg PO BID, Digoxin 0.25mg PO daily, Lasix 20mg PO BID, Lisinopril 20mg PO daily, Metformin 500mg PO BID, ASA 81mg po daily FamHx: mother with DM and father with unknown cancer SocHx: reports he used to smoke 2 cigarettes/ day and drink alcohol but after being incarcerated in the 80s he quit everything. 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 Patient denies any drug use. He lives at [facility]. Review of Systems - Review of Systems Systems not reviewed;Unavailable: Altered Mental Status Past Patient History - Past Medical History & Family History Past Medical History?: Yes - Past Social History Smoking Status: Never Smoked - CARDIAC Hx Hypercholesterolemia: Yes Hx Hypertension: Yes - ENDOCRINE/METABOLIC Hx Diabetes Mellitus Type 2: Yes - MUSCULOSKELETAL/RHEUMATOLOGICAL Hx Falls: Yes (12-27-2016) - PSYCHIATRIC Hx Substance Use: No - SURGICAL HISTORY Hx Coronary Stent: Yes Other/Comment: prostate sx in 1980 - ANESTHESIA Hx Anesthesia: Yes Hx Anesthesia Reactions: No Meds Allergies/Adverse Reactions: Allergies Allergy/AdvReac Type Severity Reaction Status Date / Time No Known Allergies Allergy Verified 12/29/16 12:23 - Medications Medications: Current Medications Carvedilol (Coreg) 3.125 mg PO BID [facility] Last Admin: 12/29/16 18:49 Dose: Not Given Digoxin (Lanoxin) 0.25 mg PO DAILY@1800 [facility] Last Admin: 12/29/16 18:49 Dose: Not Given Famotidine (Pepcid) 20 mg PO BID [facility] Last Admin: 12/30/16 10:18 Dose: Not Given Furosemide (Lasix) 20 mg PO BID [facility] Last Admin: 12/30/16 10:18 Dose: Not Given Insulin Aspart (Novolog) 0 unit SC [facility] PRN Reason: Protocol Last Admin: 12/30/16 11:38 Dose: Not Given Lisinopril (Zestril) 20 mg PO DAILY [facility] Last Admin: 12/30/16 10:18 Dose: Not Given Pneumococcal Polyvalent Vaccine (Pneumovax 23 Vaccine) 0.5 ml IM .ONCE ONE Stop: 01/01/17 10:01 Rosuvastatin Calcium (Crestor) 20 mg PO [facility] Last Admin: 12/29/16 22:11 Dose: 20 mg Results - Vital Signs Recent Vital Signs: Last Vital Signs Temp 97.0 F L 12/30/16 08:48 Pulse 48 L 12/30/16 09:17 Resp 20 12/30/16 08:48 BP 137/54 L 12/30/16 08:48 Pulse Ox 99 12/30/16 08:48 - Labs Result Diagrams: 12/30/16 02:18 12/30/16 02:18 Labs: Laboratory Results - last 24 hr 12/29/16 12/30/16 12/30/16 22:04 02:18 02:18 WBC 8.0 RBC 4.02 L Hgb 12.4 Hct 37.0 MCV 92.2 MCH 30.9 MCHC 33.5 RDW 14.1 Plt Count 135 MPV 9.3 Neut % (Auto) 64.4 Lymph % (Auto) 21.9 [place] % (Auto) 11.4 H Eos % (Auto) 1.7 Baso % (Auto) 0.6 Neut # 5.1 Lymph # 1.7 [place] # 0.9 H Eos # 0.1 Baso # 0.0 PT INR APTT Sodium 138 Potassium 3.9 Chloride 100 Carbon Dioxide 28 Anion Gap 14 BUN 22 H Creatinine 0.8 Est GFR ( Amer) > 60 Est GFR (Non-Af Amer) > 60 POC Glucose (mg/dL) 147 H Random Glucose 92 Calcium 8.6 Phosphorus 3.4 Magnesium 1.8 Total Bilirubin 1.0 AST 49 ALT 28 Alkaline Phosphatase 89 Total Protein 6.4 Albumin 3.4 L Globulin 3.0 Albumin/Globulin Ratio 1.1 Digoxin 12/30/16 12/30/16 12/30/16 02:18 02:18 06:28 WBC RBC Hgb Hct MCV MCH MCHC RDW Plt Count MPV Neut % (Auto) Lymph % (Auto) [place] % (Auto) Eos % (Auto) Baso % (Auto) Neut # Lymph # [place] # Eos # Baso # PT 12.2 INR 1.1 APTT 27 Sodium Potassium Chloride Carbon Dioxide Anion Gap BUN Creatinine Est GFR ( Amer) Est GFR (Non-Af Amer) POC Glucose (mg/dL) 105 Random Glucose Calcium Phosphorus Magnesium Total Bilirubin AST ALT Alkaline Phosphatase Total Protein Albumin Globulin Albumin/Globulin Ratio Digoxin 1.0 12/30/16 11:15 WBC RBC Hgb Hct MCV MCH MCHC RDW Plt Count MPV Neut % (Auto) Lymph % (Auto) [place] % (Auto) Eos % (Auto) Baso % (Auto) Neut # Lymph # [place] # Eos # Baso # PT INR APTT Sodium Potassium Chloride Carbon Dioxide Anion Gap BUN Creatinine Est GFR ( Amer) Est GFR (Non-Af Amer) POC Glucose (mg/dL) 106 Random Glucose Calcium Phosphorus Magnesium Total Bilirubin AST ALT Alkaline Phosphatase Total Protein Albumin Globulin Albumin/Globulin Ratio Digoxin Assessment & Plan - Assessment and Plan (Free Text) Assessment: 76 year old male PMHx of Hypertension, Hypercholesterolemia, DM2 who was found in the lobby having ataxic gait. CT head showed Plan: Neuro: AMS Bilateral frontoparietal subdural hematomas left larger than right Head CT 12/30: interval mild worsening of left subdural hematoma since prior exam ; Refer to full report. Head CT on admission 12/29: large bilateral frontoparietal subdural hematomas left larger than right. Left side is subacute to chronic and right-sided more chronic in appearance. Significant mass effect with compression of both cerebral hemispheres and mild bcru-vr-lcpox midline shift of. Marked compression of the ventricles as well. Findings also suggest mild diffuse cerebral edema hold home dose ASA Neurocheck Q2H Neurosurgery Dr. Gill on board - f/u reccs CV: Bradycardia Asymptomatic EKG showed sinus bradycardia with 1st degree AV block Coreg and Digoxin held Monitor HR Hx of HTN Coreg 3.125mg PO BID-Held bc of bradycardia Digoxin 0.25mg PO daily-Held bc of bradycardia Lisinopril 20mg PO daily Crestor 20mg PO HS Lasix 20mg PO BID Monitor BP Pulm: O2 sat: 99%, NC 2L GI: NPO /Renal: BUN/Cr 22/0.8 WNL Endo: Hx of DM Accucheck ACHS Low dose RISS Hgb A1c 6.8 Prophylaxis: SCDs VTE ppx c/i bc of bleed Pepcid 20mg PO BID-held
--- NOTE | 2016-12-30 20:42 | CP.PCM.CON ---
History of Present Illness - History of Present Illness History of Present Illness: Patient transferred to ICU following bilateral craniotomy and evacuation of bilateral subdural hematoma 76 y/o male with h/o DM,HTN,Hyperlipidemia seen in ER for ataxia. CT 12/29/16 showed bilateral subdural hematoma .Rpt CT head done today showed interval worsening of Left subdural hematoma s/p Sx h/o recent fall doesnot remember when.L[facility] in a [facility] Patient poor historian.History via Medical Coding Technician service.called contact listed on facesheet not available.No complaints Review of Systems - Review of Systems Systems not reviewed;Unavailable: Language Barrier - Constitutional Constitutional: absent: Anorexia, Fever, Frequent Falls, Headache, Lethargy, Weakness - EENT Eyes: absent: Blurred Vision Ears: absent: Disequilibrium, Dizziness Nose/Mouth/Throat: absent: Nasal Congestion, Neck Pain - Cardiovascular Cardiovascular: absent: Chest Pain, Claudication, Dyspnea, Edema - Respiratory Respiratory: absent: Cough, Dyspnea, Dyspnea on Exertion - Gastrointestinal Gastrointestinal: absent: Change in Bowel Habits, Nausea, Vomiting - Genitourinary Genitourinary: absent: Dysuria, Flank Pain - Musculoskeletal Musculoskeletal: absent: Abnormal Gait, Muscle Weakness - Integumentary Integumentary: absent: Swelling - Neurological Neurological: absent: Dizziness, Numbness, Focal Weakness, Headaches - Endocrine Endocrine: absent: Fatigue - Hematologic/Lymphatic Hematologic: absent: Easy Bruising Past Patient History - Past Medical History & Family History Past Medical History?: Yes - Past Social History Smoking Status: Never Smoked Alcohol: None Drugs: Denies - CARDIAC Hx Hypercholesterolemia: Yes Hx Hypertension: Yes - ENDOCRINE/METABOLIC Hx Diabetes Mellitus Type 2: Yes - MUSCULOSKELETAL/RHEUMATOLOGICAL Hx Falls: Yes (12-27-2016) - PSYCHIATRIC Hx Substance Use: No - SURGICAL HISTORY Hx Coronary Stent: Yes Other/Comment: prostate sx in 1980 - ANESTHESIA Hx Anesthesia: Yes Hx Anesthesia Reactions: No Meds Allergies/Adverse Reactions: Allergies Allergy/AdvReac Type Severity Reaction Status Date / Time No Known Allergies Allergy Verified 12/29/16 12:23 - Medications Medications: Current Medications Carvedilol (Coreg) 3.125 mg PO BID [facility] Last Admin: 12/29/16 18:49 Dose: Not Given Digoxin (Lanoxin) 0.25 mg PO DAILY@1800 [facility] Last Admin: 12/29/16 18:49 Dose: Not Given Famotidine (Pepcid) 20 mg PO BID [facility] Last Admin: 12/30/16 10:18 Dose: Not Given Furosemide (Lasix) 20 mg PO BID [facility] Last Admin: 12/30/16 10:18 Dose: Not Given Insulin Aspart (Novolog) 0 unit SC [facility] PRN Reason: Protocol Last Admin: 12/30/16 18:40 Dose: Not Given Lisinopril (Zestril) 20 mg PO DAILY [facility] Last Admin: 12/30/16 10:18 Dose: Not Given Pneumococcal Polyvalent Vaccine (Pneumovax 23 Vaccine) 0.5 ml IM .ONCE ONE Stop: 01/01/17 10:01 Rosuvastatin Calcium (Crestor) 20 mg PO HS [facility] Last Admin: 12/29/16 22:11 Dose: 20 mg Physical Exam - Constitutional Appears: Non-toxic - Head Exam Head Exam: NORMOCEPHALIC Additional comments: bilateral drains with hemorrhagic fluids - Eye Exam Eye Exam: EOMI, Normal appearance, PERRL Pupil Exam: NORMAL ACCOMODATION - ENT Exam ENT Exam: Mucous Membranes Moist, Normal Exam - Neck Exam Neck exam: Positive for: Normal Inspection - Respiratory Exam Respiratory Exam: Clear to Auscultation Bilateral, NORMAL BREATHING PATTERN. absent: Respiratory Distress - Cardiovascular Exam Cardiovascular Exam: Bradycardia. absent: JVD - GI/Abdominal Exam GI & Abdominal Exam: Normal Bowel Sounds, Soft. absent: Organomegaly, Tenderness - Exam Exam: NORMAL INSPECTION - Extremities Exam Extremities exam: Positive for: normal inspection, pedal edema, pedal pulses present. Negative for: calf tenderness - Back Exam Back exam: NORMAL INSPECTION - Neurological Exam Neurological exam: Alert, CN II-XII Intact Additional comments: oriented to person - Skin Skin Exam: Intact, Normal Color, Warm Results - Vital Signs Recent Vital Signs: Last Vital Signs Temp 97.9 F 12/30/16 18:15 Pulse 61 12/30/16 18:30 Resp 10 L 12/30/16 18:30 BP 131/61 12/30/16 18:21 Pulse Ox 100 12/30/16 18:30 - Labs Result Diagrams: 12/30/16 02:18 12/30/16 02:18 Labs: Laboratory Results - last 24 hr 12/29/16 12/30/16 12/30/16 22:04 02:18 02:18 WBC 8.0 RBC 4.02 L Hgb 12.4 Hct 37.0 MCV 92.2 MCH 30.9 MCHC 33.5 RDW 14.1 Plt Count 135 MPV 9.3 Neut % (Auto) 64.4 Lymph % (Auto) 21.9 [place] % (Auto) 11.4 H Eos % (Auto) 1.7 Baso % (Auto) 0.6 Neut # 5.1 Lymph # 1.7 [place] # 0.9 H Eos # 0.1 Baso # 0.0 PT INR APTT Sodium 138 Potassium 3.9 Chloride 100 Carbon Dioxide 28 Anion Gap 14 BUN 22 H Creatinine 0.8 Est GFR ( Amer) > 60 Est GFR (Non-Af Amer) > 60 POC Glucose (mg/dL) 147 H Random Glucose 92 Calcium 8.6 Phosphorus 3.4 Magnesium 1.8 Total Bilirubin 1.0 AST 49 ALT 28 Alkaline Phosphatase 89 Total Protein 6.4 Albumin 3.4 L Globulin 3.0 Albumin/Globulin Ratio 1.1 Digoxin 12/30/16 12/30/16 12/30/16 02:18 02:18 06:28 WBC RBC Hgb Hct MCV MCH MCHC RDW Plt Count MPV Neut % (Auto) Lymph % (Auto) [place] % (Auto) Eos % (Auto) Baso % (Auto) Neut # Lymph # [place] # Eos # Baso # PT 12.2 INR 1.1 APTT 27 Sodium Potassium Chloride Carbon Dioxide Anion Gap BUN Creatinine Est GFR ( Amer) Est GFR (Non-Af Amer) POC Glucose (mg/dL) 105 Random Glucose Calcium Phosphorus Magnesium Total Bilirubin AST ALT Alkaline Phosphatase Total Protein Albumin Globulin Albumin/Globulin Ratio Digoxin 1.0 12/30/16 12/30/16 11:15 18:39 WBC RBC Hgb Hct MCV MCH MCHC RDW Plt Count MPV Neut % (Auto) Lymph % (Auto) [place] % (Auto) Eos % (Auto) Baso % (Auto) Neut # Lymph # [place] # Eos # Baso # PT INR APTT Sodium Potassium Chloride Carbon Dioxide Anion Gap BUN Creatinine Est GFR ( Amer) Est GFR (Non-Af Amer) POC Glucose (mg/dL) 106 103 Random Glucose Calcium Phosphorus Magnesium Total Bilirubin AST ALT Alkaline Phosphatase Total Protein Albumin Globulin Albumin/Globulin Ratio Digoxin - EKG Data EKG Interpreted by: Other - EKG Data EKG comments: bradycardia,1st degree AV block - Imaging and Cardiology Chest x-ray Status: Report reviewed by me Assessment & Plan - Assessment and Plan (Free Text) Assessment: 1.Bilateral Subdural Hematoma-s/p evacuation 2.HTN/ Bradycardia--contiue meds f/u BP and HR 3.DM_accucheck with coverage 4.Hyperlipidemia on meds
[2016-12-30] MEDS ORDERED: Dextrose 5%/0.9% NS 1,000 ML IV ONE (21:00)
[2016-12-30] MEDS ORDERED: (Novolin R) Insulin Human Regular 100 units/ml vial SC SCH (21:00)
[2016-12-31] MEDS ORDERED: (Novolin R) Insulin Human Regular 100 units/ml vial SC SCH
[2016-12-31] MEDS: (Novolin R) Insulin Human Regular 100 units/ml vial SC SCH ×5 (06:00→21:51)
[2016-12-31 06:39] LABS: BASO % 0.2 % (0.0-2.0); EOS % 0.2 % (0.0-4.0); HEMATOCRIT 41.2 % (35.0-51.0); LYMPH # 0.8 K/uL (1.0-4.3); LYMPH % 7.9 % (20.0-40.0); MEAN CELL VOLUME 92.5 fL (80.0-94.0); MEAN CORPUSCULAR HEMOGLOBIN 31.3 pg (27.0-31.0); MEAN CORPUSCULAR HGB CONC 33.8 g/dL (33.0-37.0); MONO # 1.1 K/uL (0.0-0.8); MONO % 10.9 % (0.0-10.0); PLATELET COUNT 141 K/uL (130-400); RED CELL DISTRIBUTION WIDTH 14.1 % (11.5-14.5); WHITE BLOOD COUNT 10.4 K/uL (4.8-10.8)
[2016-12-31 06:40] LABS: CHLORIDE 100 mmol/L (98-107); SODIUM 139 mmol/L (132-148)
[2016-12-31 06:41] LABS: POTASSIUM 4.1 mmol/L (3.6-5.2)
[2016-12-31 06:42] LABS: CHOLESTEROL 116 mg/dL (0-199); GFR AFRICAN-AMERICAN > 60
[2016-12-31 06:43] LABS: ALB/GLOB RATIO 1.1 (1.0-2.1); ALKALINE PHOSPHATASE 102 U/L (38-126); ALT/SGPT 12 U/L (21-72); AST/SGOT 41 U/L (17-59); BLOOD UREA NITROGEN 14 mg/dL (9-20); CARBON DIOXIDE 27 mmol/L (22-30); GLUCOSE,RANDOM 112 mg/dL (75-110); PHOSPHOROUS 3.6 mg/dL (2.5-4.5); TOTAL PROTEIN 6.7 g/dL (6.3-8.3)
[2016-12-31 06:44] LABS: CALCIUM 8.4 mg/dl (8.6-10.4); MAGNESIUM 1.6 mg/dL (1.6-2.3)
[2016-12-31 08:49] LABS: NEUTROPHIL 88 % (50-75); TOTAL CELLS COUNTED 100
--- NOTE | 2016-12-31 08:56 | RAD ---
PROCEDURE: CHEST RADIOGRAPH, 1 VIEW HISTORY: r/o pneumonia COMPARISON: 12/29/2016 FINDINGS: LUNGS: Elevated left hemidiaphragm. Patchy increased markings at both lung bases with trace bilateral pleural effusions. Biapical pleural thickening with upper lobe granulomatous changes. Mild venous congestion. Right hilar prominence. PLEURA: As above. CARDIOVASCULAR: Cardiomegaly. OSSEOUS STRUCTURES: Degenerative changes in the spine and shoulders. VISUALIZED UPPER ABDOMEN: Normal. OTHER FINDINGS: None. IMPRESSION: Elevated left hemidiaphragm. Patchy increased markings at both lung bases with trace bilateral pleural effusions. Biapical pleural thickening with upper lobe granulomatous changes. Mild venous congestion. Right hilar prominence.
--- NOTE | 2016-12-31 12:04 | PN ---
DATE: 12/31/2016 Postop day 1, the patient is doing reasonably well. He was trying to get of bed last night and is no w restrained. He is at his preoperative status - awake, alert, can tell his name, that he is in the hospital. He does follow commands. He is a little confused. He has tremulousness involving his rig ht leg. The drains have put out approximately 150 mL of sanguinous fluid each. IMPRESSION: I am a little bit concerned he may be having some focal motor seizures. I am going to a [facility] for neurology evaluation. We will continue the present plan. He can have a diet today, and we wi ll check a routine followup CT in the morning. Matthew Gill MD cc: [phone] TT: 12/31/2016 12:03:40 Confirmation # [id number] Dictation # [id number] antoinette
--- NOTE | 2016-12-31 14:37 | CP.CCUPN ---
<Joni Urban - Last Filed: 12/31/16 14:29> CCU Subjective - Physician Review Subjective (Free Text): 12/31/16 14:29 Pt seen and examined at bedside. POD #1 s/p b/l craniotomy. Nursing reports pt attempting to get out of bed last night, so 1:1 initiated. Pt is awake but oriented only to person. He alternately stated he was at [facility] (his homeless halfway) or [facility]. He believes the year is 1987. He denies pain, visual/hearing changes, headache, when asked. He is able to move all extremities when asked. His friend Massiel is bedside and states baseline was AAOx3 before fall on 12/28. Critical Care Time Spent (in minutes): 35 CCU Objective - Vital Signs / Intake & Output Vital Signs (Last 4 hours): Vital Signs Temp Pulse Resp BP Pulse Ox 12/31/16 12:50 75 11 L 98 12/31/16 12:40 78 14 98 12/31/16 12:30 80 16 124/71 96 12/31/16 12:20 108 H 11 L 96 12/31/16 12:10 105 H 21 94 L 12/31/16 12:00 98.1 F 99 H 26 H 12/31/16 11:50 131 H 16 12/31/16 11:40 76 12 98 12/31/16 11:30 66 23 99 12/31/16 11:20 60 20 99 12/31/16 11:19 62 21 139/57 L 99 12/31/16 11:10 73 19 100 12/31/16 11:00 60 20 100 12/31/16 10:50 66 23 99 12/31/16 10:40 80 23 98 12/31/16 10:30 71 24 99 Intake and Output (Last 8hrs): Intake & Output 12/30/16 12/31/16 12/31/16 22:59 06:59 14:59 Intake Total 245 450 600 Output Total 710 320 620 Balance -465 130 -20 Intake: Intake, IV Amount 245 450 600 Left Forearm 245 450 525 Right Forearm 75 Output: Drainage 230 Left Parietal 130 Right Parietal 100 Urine 710 320 390 Urethral (De Dios) 260 320 390 - Physical Exam Physical Exam Limitations: Positive for: Clinical Condition Head: Positive for: Other (bilateral drains w. 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 Negative for: Respiratory Distress, Accessory Muscle Use Cardiovascular: Positive for: Regular Rate and Rhythm, Normal S1, S2 Abdomen: Positive for: Normal Bowel Sounds. Negative for: Tenderness, Distention Upper Extremity: Positive for: Normal Inspection Lower Extremity: Positive for: Normal Inspection Neurological: Positive for: GCS=15, Speech Normal Skin: Positive for: Warm, Dry, Normal Color Psychiatric: Positive for: Alert. Negative for: Oriented x 3 (person only) - Medications Active Medications: Active Medications Generic Name Dose Route Start Last Admin Trade Name Freq PRN Reason Stop Dose Admin Carvedilol 3.125 mg 12/29/16 18:00 12/29/16 18:49 Coreg PO Not Given BID JANE Digoxin 0.25 mg 12/29/16 18:00 12/29/16 18:49 Lanoxin PO Not Given DAILY@1800 JANE Famotidine 20 mg 12/30/16 22:00 12/31/16 10:16 Pepcid IVP 20 mg Q12 JANE Administration Furosemide 20 mg 12/29/16 18:00 12/31/16 10:16 Lasix PO 20 mg BID JANE Administration Insulin Human Regular 0 unit 12/31/16 00:00 12/31/16 11:29 Novolin R SC 1 unit Q6 JANE Administration Protocol Lisinopril 20 mg 12/29/16 17:00 12/31/16 10:16 Zestril PO 20 mg DAILY JANE Administration Pneumococcal Polyvalent Vaccine 0.5 ml 01/01/17 10:00 Pneumovax 23 Vaccine IM 01/01/17 10:01 .ONCE ONE Rosuvastatin Calcium 20 mg 12/29/16 22:00 12/30/16 21:41 Crestor PO 20 mg HS JAEN Administration - Patient Studies Lab Studies: Lab Studies 12/31/16 12/31/16 12/31/16 Range/Units 11:18 06:24 06:24 WBC 10.4 (4.8-10.8) K/uL RBC 4.45 (4.40-5.90) Mil/uL Hgb 13.9 (12.0-18.0) g/dL Hct 41.2 (35.0-51.0) % MCV 92.5 (80.0-94.0) fL MCH 31.3 H (27.0-31.0) pg MCHC 33.8 (33.0-37.0) g/dL RDW 14.1 (11.5-14.5) % Plt Count 141 (130-400) K/uL MPV 10.0 (7.2-11.7) fL Neut % (Auto) 80.8 H (50.0-75.0) % Lymph % (Auto) 7.9 L (20.0-40.0) % [place] % (Auto) 10.9 H (0.0-10.0) % Eos % (Auto) 0.2 (0.0-4.0) % Baso % (Auto) 0.2 (0.0-2.0) % Neut # 8.4 H (1.8-7.0) K/uL Lymph # 0.8 L (1.0-4.3) K/uL [place] # 1.1 H (0.0-0.8) K/uL Eos # 0.0 (0.0-0.7) K/uL Baso # 0.0 (0.0-0.2) K/uL Neutrophils % (Manual) 88 H (50-75) % Lymphocytes % (Manual) 7 L (20-40) % Monocytes % (Manual) 5 (0-10) % Platelet Estimate Normal (NORMAL) RBC Morphology Normal Sodium 139 (132-148) mmol/L Potassium 4.1 (3.6-5.2) mmol/L Chloride 100 (98-107) mmol/L Carbon Dioxide 27 (22-30) mmol/L Anion Gap 15 (10-20) BUN 14 (9-20) mg/dL Creatinine 0.7 L (0.8-1.5) MG/DL Est GFR ( Amer) > 60 Est GFR (Non-Af Amer) > 60 POC Glucose (mg/dL) 154 H (65-110) mg/dL Random Glucose 112 H (75-110) mg/dL Calcium 8.4 L (8.6-10.4) mg/dl Phosphorus 3.6 (2.5-4.5) mg/dL Magnesium 1.6 (1.6-2.3) mg/dL Total Bilirubin 1.0 (0.2-1.3) mg/dL AST 41 (17-59) U/L ALT 12 L D (21-72) U/L Alkaline Phosphatase 102 (38-126) U/L Total Protein 6.7 (6.3-8.3) g/dL Albumin 3.5 (3.5-5.0) g/dL Globulin 3.2 (2.2-3.9) gm/dL Albumin/Globulin Ratio 1.1 (1.0-2.1) Triglycerides 64 D (0-149) mg/dL Cholesterol 116 (0-199) mg/dL LDL Cholesterol Direct 56 (0-129) mg/dL HDL Cholesterol 41 (30-70) mg/dL 12/31/16 12/30/16 12/30/16 Range/Units 05:29 23:52 21:27 WBC (4.8-10.8) K/uL RBC (4.40-5.90) Mil/uL Hgb (12.0-18.0) g/dL Hct (35.0-51.0) % MCV (80.0-94.0) fL MCH (27.0-31.0) pg MCHC (33.0-37.0) g/dL RDW (11.5-14.5) % Plt Count (130-400) K/uL MPV (7.2-11.7) fL Neut % (Auto) (50.0-75.0) % Lymph % (Auto) (20.0-40.0) % [place] % (Auto) (0.0-10.0) % Eos % (Auto) (0.0-4.0) % Baso % (Auto) (0.0-2.0) % Neut # (1.8-7.0) K/uL Lymph # (1.0-4.3) K/uL [place] # (0.0-0.8) K/uL Eos # (0.0-0.7) K/uL Baso # (0.0-0.2) K/uL Neutrophils % (Manual) (50-75) % Lymphocytes % (Manual) (20-40) % Monocytes % (Manual) (0-10) % Platelet Estimate (NORMAL) RBC Morphology Sodium (132-148) mmol/L Potassium (3.6-5.2) mmol/L Chloride (98-107) mmol/L Carbon Dioxide (22-30) mmol/L Anion Gap (10-20) BUN (9-20) mg/dL Creatinine (0.8-1.5) MG/DL Est GFR ( Amer) Est GFR (Non-Af Amer) POC Glucose (mg/dL) 123 H 133 H 94 (65-110) mg/dL Random Glucose (75-110) mg/dL Calcium (8.6-10.4) mg/dl Phosphorus (2.5-4.5) mg/dL Magnesium (1.6-2.3) mg/dL Total Bilirubin (0.2-1.3) mg/dL AST (17-59) U/L ALT (21-72) U/L Alkaline Phosphatase (38-126) U/L Total Protein (6.3-8.3) g/dL Albumin (3.5-5.0) g/dL Globulin (2.2-3.9) gm/dL Albumin/Globulin Ratio (1.0-2.1) Triglycerides (0-149) mg/dL Cholesterol (0-199) mg/dL LDL Cholesterol Direct (0-129) mg/dL HDL Cholesterol (30-70) mg/dL 12/30/16 Range/Units 18:39 WBC (4.8-10.8) K/uL RBC (4.40-5.90) Mil/uL Hgb (12.0-18.0) g/dL Hct (35.0-51.0) % MCV (80.0-94.0) fL MCH (27.0-31.0) pg MCHC (33.0-37.0) g/dL RDW (11.5-14.5) % Plt Count (130-400) K/uL MPV (7.2-11.7) fL Neut % (Auto) (50.0-75.0) % Lymph % (Auto) (20.0-40.0) % [place] % (Auto) (0.0-10.0) % Eos % (Auto) (0.0-4.0) % Baso % (Auto) (0.0-2.0) % Neut # (1.8-7.0) K/uL Lymph # (1.0-4.3) K/uL [place] # (0.0-0.8) K/uL Eos # (0.0-0.7) K/uL Baso # (0.0-0.2) K/uL Neutrophils % (Manual) (50-75) % Lymphocytes % (Manual) (20-40) % Monocytes % (Manual) (0-10) % Platelet Estimate (NORMAL) RBC Morphology Sodium (132-148) mmol/L Potassium (3.6-5.2) mmol/L Chloride (98-107) mmol/L Carbon Dioxide (22-30) mmol/L Anion Gap (10-20) BUN (9-20) mg/dL Creatinine (0.8-1.5) MG/DL Est GFR ( Amer) Est GFR (Non-Af Amer) POC Glucose (mg/dL) 103 (65-110) mg/dL Random Glucose (75-110) mg/dL Calcium (8.6-10.4) mg/dl Phosphorus (2.5-4.5) mg/dL Magnesium (1.6-2.3) mg/dL Total Bilirubin (0.2-1.3) mg/dL AST (17-59) U/L ALT (21-72) U/L Alkaline Phosphatase (38-126) U/L Total Protein (6.3-8.3) g/dL Albumin (3.5-5.0) g/dL Globulin (2.2-3.9) gm/dL Albumin/Globulin Ratio (1.0-2.1) Triglycerides (0-149) mg/dL Cholesterol (0-199) mg/dL LDL Cholesterol Direct (0-129) mg/dL HDL Cholesterol (30-70) mg/dL Laboratory Results - last 24 hr 12/30/16 12/30/16 12/30/16 18:39 21:27 23:52 WBC RBC Hgb Hct MCV MCH MCHC RDW Plt Count MPV Neut % (Auto) Lymph % (Auto) [place] % (Auto) Eos % (Auto) Baso % (Auto) Neut # Lymph # [place] # Eos # Baso # Neutrophils % (Manual) Lymphocytes % (Manual) Monocytes % (Manual) Platelet Estimate RBC Morphology Sodium Potassium Chloride Carbon Dioxide Anion Gap BUN Creatinine Est GFR ( Amer) Est GFR (Non-Af Amer) POC Glucose (mg/dL) 103 94 133 H Random Glucose Calcium Phosphorus Magnesium Total Bilirubin AST ALT Alkaline Phosphatase Total Protein Albumin Globulin Albumin/Globulin Ratio Triglycerides Cholesterol LDL Cholesterol Direct HDL Cholesterol 12/31/16 12/31/16 12/31/16 05:29 06:24 06:24 WBC 10.4 RBC 4.45 Hgb 13.9 Hct 41.2 MCV 92.5 MCH 31.3 H MCHC 33.8 RDW 14.1 Plt Count 141 MPV 10.0 Neut % (Auto) 80.8 H Lymph % (Auto) 7.9 L [place] % (Auto) 10.9 H Eos % (Auto) 0.2 Baso % (Auto) 0.2 Neut # 8.4 H Lymph # 0.8 L [place] # 1.1 H Eos # 0.0 Baso # 0.0 Neutrophils % (Manual) 88 H Lymphocytes % (Manual) 7 L Monocytes % (Manual) 5 Platelet Estimate Normal RBC Morphology Normal Sodium 139 Potassium 4.1 Chloride 100 Carbon Dioxide 27 Anion Gap 15 BUN 14 Creatinine 0.7 L Est GFR ( Amer) > 60 Est GFR (Non-Af Amer) > 60 POC Glucose (mg/dL) 123 H Random Glucose 112 H Calcium 8.4 L Phosphorus 3.6 Magnesium 1.6 Total Bilirubin 1.0 AST 41 ALT 12 L D Alkaline Phosphatase 102 Total Protein 6.7 Albumin 3.5 Globulin 3.2 Albumin/Globulin Ratio 1.1 Triglycerides 64 D Cholesterol 116 LDL Cholesterol Direct 56 HDL Cholesterol 41 12/31/16 11:18 WBC RBC Hgb Hct MCV MCH MCHC RDW Plt Count MPV Neut % (Auto) Lymph % (Auto) [place] % (Auto) Eos % (Auto) Baso % (Auto) Neut # Lymph # [place] # Eos # Baso # Neutrophils % (Manual) Lymphocytes % (Manual) Monocytes % (Manual) Platelet Estimate RBC Morphology Sodium Potassium Chloride Carbon Dioxide Anion Gap BUN Creatinine Est GFR ( Amer) Est GFR (Non-Af Amer) POC Glucose (mg/dL) 154 H Random Glucose Calcium Phosphorus Magnesium Total Bilirubin AST ALT Alkaline Phosphatase Total Protein Albumin Globulin Albumin/Globulin Ratio Triglycerides Cholesterol LDL Cholesterol Direct HDL Cholesterol Fingerstick Blood Sugar Results: 154 Review of Systems - Constitutional Constitutional: absent: Fever, Chills - EENT Eyes: absent: Change in Vision Ears: absent: Dizziness - Cardiovascular Cardiovascular: absent: Chest Pain, Dyspnea - Respiratory Respiratory: absent: Dyspnea - Gastrointestinal Gastrointestinal: absent: Abdominal Pain, Nausea, Vomiting - Genitourinary Genitourinary: absent: Dysuria - Musculoskeletal Musculoskeletal: absent: Numbness, Tingling - Neurological Neurological: Confusion. absent: Dizziness, Numbness, Headaches, Weakness Critical Care Progress Note - Nutrition Nutrition: Nutrition Category Date Time Status Diabetic [Consistent Carbohydrate] [DIET] Diets 12/31/16 Lunch Active Assessment/Plan - Assessment and Plan (Free Text) Assessment: 76 year old male PMHx of Hypertension, Hypercholesterolemia, DM2 who was found to have bilateral subdural hematomas. Craniotomy performed 12/30/16. Plan: Neuro Bilateral frontoparietal subdural hematomas s/p craniotomy POD #1, approximately 125 cc drainage on each side Head CT 12/30: interval mild worsening of left subdural hematoma since prior exam ; Refer to full report. Head CT on admission 12/29: large bilateral frontoparietal subdural hematomas left larger than right. Left side is subacute to chronic and right-sided more chronic in appearance. Significant mass effect with compression of both cerebral hemispheres and mild [id number] midline shift of. Marked compression of the ventricles as well. Findings also suggest mild diffuse cerebral edema Neurosurgery Dr. Gill on board -concern for focal motor seizures, recommend neuro consult - f/u CT head on 01/01 Neurology consult: Dr. Maxwell Deshpande - f/u reccs CV Bradycardia Asymptomatic, oxygen via nc EKG showed sinus bradycardia with 1st degree AV block Coreg and Digoxin held Monitor HR Hx of HTN Coreg 3.125mg PO BID-Held bc of bradycardia Digoxin 0.25mg PO daily-Held bc of bradycardia Lisinopril 20mg PO daily Crestor 20mg PO HS Lasix 20mg PO BID Monitor BP Pulm: Questionable PNA Afebrile, No Leukocytosis CXR (12/30/16): Patchy right lower lobe opacities may reflect atelectasis or pneumonia. CXR (12/31/16): Elevated left hemidiaphragm. Patchy increased markings at both lung bases with trace b/l pleural effusions. Biapical pleural thickening with upper lobe granulomatous changes. Mild venous congestion. Right hilar prominence (see full report) ENDO Hx of DM BG mildly elevated Accucheck ACHS Low dose RISS Hgb A1c 6.8 Cholesterol panel WNL PPX SCDs VTE ppx c/i bc of bleed Pepcid 20mg PO BID-held <MaddimitaliDawood gurrola - Last Filed: 12/31/16 17:30> CCU Objective - Vital Signs / Intake & Output Vital Signs (Last 4 hours): Vital Signs Pulse Resp BP Pulse Ox 12/31/16 15:40 70 12 98 12/31/16 15:30 81 12 99 12/31/16 15:20 63 22 99 12/31/16 15:19 62 22 136/60 99 12/31/16 15:10 73 25 H 98 12/31/16 15:00 83 16 98 12/31/16 14:50 64 22 98 12/31/16 14:40 60 21 98 12/31/16 14:30 67 26 H 99 12/31/16 14:20 68 13 99 12/31/16 14:19 66 22 124/54 L 99 12/31/16 14:10 64 11 L 99 12/31/16 14:00 91 H 17 96 12/31/16 13:50 91 H 15 98 12/31/16 13:40 88 12 97 12/31/16 13:30 66 19 99 Intake and Output (Last 8hrs): Intake & Output 12/31/16 12/31/16 12/31/16 06:59 14:59 22:59 Intake Total 450 1065 75 Output Total 320 665 Balance 130 400 75 Intake: Intake, IV Amount 450 675 75 Left Forearm 450 600 75 Right Forearm 75 Oral 390 Output: Drainage 230 Left Parietal 130 Right Parietal 100 Urine 320 435 Urethral (De Dios) 320 435 - Medications Active Medications: Active Medications Generic Name Dose Route Start Last Admin Trade Name Freq PRN Reason Stop Dose Admin Carvedilol 3.125 mg 12/29/16 18:00 12/29/16 18:49 Coreg PO Not Given BID JANE Digoxin 0.25 mg 12/29/16 18:00 12/29/16 18:49 Lanoxin PO Not Given DAILY@1800 JANE Famotidine 20 mg 12/30/16 22:00 12/31/16 10:16 Pepcid IVP 20 mg Q12 JANE Administration Furosemide 20 mg 12/29/16 18:00 12/31/16 10:16 Lasix PO 20 mg BID JANE Administration Insulin Human Regular 0 unit 12/31/16 16:30 12/31/16 16:33 Novolin R SC 1 unit ACHS JANE Administration Protocol Lisinopril 20 mg 12/29/16 17:00 12/31/16 10:16 Zestril PO 20 mg DAILY JANE Administration Pneumococcal Polyvalent Vaccine 0.5 ml 01/01/17 10:00 Pneumovax 23 Vaccine IM 01/01/17 10:01 .ONCE ONE Rosuvastatin Calcium 20 mg 12/29/16 22:00 12/30/16 21:41 Crestor PO 20 mg HS JANE Administration - Patient Studies Lab Studies: Lab Studies 12/31/16 12/31/16 12/31/16 Range/Units 16:27 11:18 06:24 WBC (4.8-10.8) K/uL RBC (4.40-5.90) Mil/uL Hgb (12.0-18.0) g/dL Hct (35.0-51.0) % MCV (80.0-94.0) fL MCH (27.0-31.0) pg MCHC (33.0-37.0) g/dL RDW (11.5-14.5) % Plt Count (130-400) K/uL MPV (7.2-11.7) fL Neut % (Auto) (50.0-75.0) % Lymph % (Auto) (20.0-40.0) % [place] % (Auto) (0.0-10.0) % Eos % (Auto) (0.0-4.0) % Baso % (Auto) (0.0-2.0) % Neut # (1.8-7.0) K/uL Lymph # (1.0-4.3) K/uL [place] # (0.0-0.8) K/uL Eos # (0.0-0.7) K/uL Baso # (0.0-0.2) K/uL Neutrophils % (Manual) (50-75) % Lymphocytes % (Manual) (20-40) % Monocytes % (Manual) (0-10) % Platelet Estimate (NORMAL) RBC Morphology Sodium 139 (132-148) mmol/L Potassium 4.1 (3.6-5.2) mmol/L Chloride 100 (98-107) mmol/L Carbon Dioxide 27 (22-30) mmol/L Anion Gap 15 (10-20) BUN 14 (9-20) mg/dL Creatinine 0.7 L (0.8-1.5) MG/DL Est GFR ( Amer) > 60 Est GFR (Non-Af Amer) > 60 POC Glucose (mg/dL) 161 H 154 H (65-110) mg/dL Random Glucose 112 H (75-110) mg/dL Calcium 8.4 L (8.6-10.4) mg/dl Phosphorus 3.6 (2.5-4.5) mg/dL Magnesium 1.6 (1.6-2.3) mg/dL Total Bilirubin 1.0 (0.2-1.3) mg/dL AST 41 (17-59) U/L ALT 12 L D (21-72) U/L Alkaline Phosphatase 102 (38-126) U/L Total Protein 6.7 (6.3-8.3) g/dL Albumin 3.5 (3.5-5.0) g/dL Globulin 3.2 (2.2-3.9) gm/dL Albumin/Globulin Ratio 1.1 (1.0-2.1) Triglycerides 64 D (0-149) mg/dL Cholesterol 116 (0-199) mg/dL LDL Cholesterol Direct 56 (0-129) mg/dL HDL Cholesterol 41 (30-70) mg/dL 12/31/16 12/31/16 12/30/16 Range/Units 06:24 05:29 23:52 WBC 10.4 (4.8-10.8) K/uL RBC 4.45 (4.40-5.90) Mil/uL Hgb 13.9 (12.0-18.0) g/dL Hct 41.2 (35.0-51.0) % MCV 92.5 (80.0-94.0) fL MCH 31.3 H (27.0-31.0) pg MCHC 33.8 (33.0-37.0) g/dL RDW 14.1 (11.5-14.5) % Plt Count 141 (130-400) K/uL MPV 10.0 (7.2-11.7) fL Neut % (Auto) 80.8 H (50.0-75.0) % Lymph % (Auto) 7.9 L (20.0-40.0) % [place] % (Auto) 10.9 H (0.0-10.0) % Eos % (Auto) 0.2 (0.0-4.0) % Baso % (Auto) 0.2 (0.0-2.0) % Neut # 8.4 H (1.8-7.0) K/uL Lymph # 0.8 L (1.0-4.3) K/uL [place] # 1.1 H (0.0-0.8) K/uL Eos # 0.0 (0.0-0.7) K/uL Baso # 0.0 (0.0-0.2) K/uL Neutrophils % (Manual) 88 H (50-75) % Lymphocytes % (Manual) 7 L (20-40) % Monocytes % (Manual) 5 (0-10) % Platelet Estimate Normal (NORMAL) RBC Morphology Normal Sodium (132-148) mmol/L Potassium (3.6-5.2) mmol/L Chloride (98-107) mmol/L Carbon Dioxide (22-30) mmol/L Anion Gap (10-20) BUN (9-20) mg/dL Creatinine (0.8-1.5) MG/DL Est GFR ( Amer) Est GFR (Non-Af Amer) POC Glucose (mg/dL) 123 H 133 H (65-110) mg/dL Random Glucose (75-110) mg/dL Calcium (8.6-10.4) mg/dl Phosphorus (2.5-4.5) mg/dL Magnesium (1.6-2.3) mg/dL Total Bilirubin (0.2-1.3) mg/dL AST (17-59) U/L ALT (21-72) U/L Alkaline Phosphatase (38-126) U/L Total Protein (6.3-8.3) g/dL Albumin (3.5-5.0) g/dL Globulin (2.2-3.9) gm/dL Albumin/Globulin Ratio (1.0-2.1) Triglycerides (0-149) mg/dL Cholesterol (0-199) mg/dL LDL Cholesterol Direct (0-129) mg/dL HDL Cholesterol (30-70) mg/dL 12/30/16 12/30/16 Range/Units 21:27 18:39 WBC (4.8-10.8) K/uL RBC (4.40-5.90) Mil/uL Hgb (12.0-18.0) g/dL Hct (35.0-51.0) % MCV (80.0-94.0) fL MCH (27.0-31.0) pg MCHC (33.0-37.0) g/dL RDW (11.5-14.5) % Plt Count (130-400) K/uL MPV (7.2-11.7) fL Neut % (Auto) (50.0-75.0) % Lymph % (Auto) (20.0-40.0) % [place] % (Auto) (0.0-10.0) % Eos % (Auto) (0.0-4.0) % Baso % (Auto) (0.0-2.0) % Neut # (1.8-7.0) K/uL Lymph # (1.0-4.3) K/uL [place] # (0.0-0.8) K/uL Eos # (0.0-0.7) K/uL Baso # (0.0-0.2) K/uL Neutrophils % (Manual) (50-75) % Lymphocytes % (Manual) (20-40) % Monocytes % (Manual) (0-10) % Platelet Estimate (NORMAL) RBC Morphology Sodium (132-148) mmol/L Potassium (3.6-5.2) mmol/L Chloride (98-107) mmol/L Carbon Dioxide (22-30) mmol/L Anion Gap (10-20) BUN (9-20) mg/dL Creatinine (0.8-1.5) MG/DL Est GFR ( Amer) Est GFR (Non-Af Amer) POC Glucose (mg/dL) 94 103 (65-110) mg/dL Random Glucose (75-110) mg/dL Calcium (8.6-10.4) mg/dl Phosphorus (2.5-4.5) mg/dL Magnesium (1.6-2.3) mg/dL Total Bilirubin (0.2-1.3) mg/dL AST (17-59) U/L ALT (21-72) U/L Alkaline Phosphatase (38-126) U/L Total Protein (6.3-8.3) g/dL Albumin (3.5-5.0) g/dL Globulin (2.2-3.9) gm/dL Albumin/Globulin Ratio (1.0-2.1) Triglycerides (0-149) mg/dL Cholesterol (0-199) mg/dL LDL Cholesterol Direct (0-129) mg/dL HDL Cholesterol (30-70) mg/dL Laboratory Results - last 24 hr 12/30/16 12/30/16 12/30/16 18:39 21:27 23:52 WBC RBC Hgb Hct MCV MCH MCHC RDW Plt Count MPV Neut % (Auto) Lymph % (Auto) [place] % (Auto) Eos % (Auto) Baso % (Auto) Neut # Lymph # [place] # Eos # Baso # Neutrophils % (Manual) Lymphocytes % (Manual) Monocytes % (Manual) Platelet Estimate RBC Morphology Sodium Potassium Chloride Carbon Dioxide Anion Gap BUN Creatinine Est GFR ( Amer) Est GFR (Non-Af Amer) POC Glucose (mg/dL) 103 94 133 H Random Glucose Calcium Phosphorus Magnesium Total Bilirubin AST ALT Alkaline Phosphatase Total Protein Albumin Globulin Albumin/Globulin Ratio Triglycerides Cholesterol LDL Cholesterol Direct HDL Cholesterol 12/31/16 12/31/16 12/31/16 05:29 06:24 06:24 WBC 10.4 RBC 4.45 Hgb 13.9 Hct 41.2 MCV 92.5 MCH 31.3 H MCHC 33.8 RDW 14.1 Plt Count 141 MPV 10.0 Neut % (Auto) 80.8 H Lymph % (Auto) 7.9 L [place] % (Auto) 10.9 H Eos % (Auto) 0.2 Baso % (Auto) 0.2 Neut # 8.4 H Lymph # 0.8 L [place] # 1.1 H Eos # 0.0 Baso # 0.0 Neutrophils % (Manual) 88 H Lymphocytes % (Manual) 7 L Monocytes % (Manual) 5 Platelet Estimate Normal RBC Morphology Normal Sodium 139 Potassium 4.1 Chloride 100 Carbon Dioxide 27 Anion Gap 15 BUN 14 Creatinine 0.7 L Est GFR ( Amer) > 60 Est GFR (Non-Af Amer) > 60 POC Glucose (mg/dL) 123 H Random Glucose 112 H Calcium 8.4 L Phosphorus 3.6 Magnesium 1.6 Total Bilirubin 1.0 AST 41 ALT 12 L D Alkaline Phosphatase 102 Total Protein 6.7 Albumin 3.5 Globulin 3.2 Albumin/Globulin Ratio 1.1 Triglycerides 64 D Cholesterol 116 LDL Cholesterol Direct 56 HDL Cholesterol 41 12/31/16 12/31/16 11:18 16:27 WBC RBC Hgb Hct MCV MCH MCHC RDW Plt Count MPV Neut % (Auto) Lymph % (Auto) [place] % (Auto) Eos % (Auto) Baso % (Auto) Neut # Lymph # [place] # Eos # Baso # Neutrophils % (Manual) Lymphocytes % (Manual) Monocytes % (Manual) Platelet Estimate RBC Morphology Sodium Potassium Chloride Carbon Dioxide Anion Gap BUN Creatinine Est GFR ( Amer) Est GFR (Non-Af Amer) POC Glucose (mg/dL) 154 H 161 H Random Glucose Calcium Phosphorus Magnesium Total Bilirubin AST ALT Alkaline Phosphatase Total Protein Albumin Globulin Albumin/Globulin Ratio Triglycerides Cholesterol LDL Cholesterol Direct HDL Cholesterol Critical Care Progress Note - Nutrition Nutrition: Nutrition Category Date Time Status Diabetic [Consistent Carbohydrate] [DIET] Diets 12/31/16 Lunch Active Attending/Attestation - Attestation I have personally seen and examined this patient.: Yes I have fully participated in the care of the patient.: Yes I have reviewed all pertinent clinical information: Yes Notes (Text): 12/31/16 17:29 I have seen and examined the patient. Medical records, lab studies, and imaging were reviewed by me and a management plan was formulated on multidisciplinary rounds with resident . I agree with their above documented assessment and plan. bilateral subdural drains draining serosanguinous fluid. Patient's mental status improved but doesn't answer all questions appropriately. Repeat Head CT tomorrow. Neurosurgery following., Critical Care Time 35 minutes. Multi-disciplinary rounds were performed with house staff, nursing, speech therapy, respiratory therapy, pharmacy and nutrition with integrated input from the primary team/attending and other consulting services. The documented time is cumulative and includes review of patient data/exams/labs/chart review and examination of the patient on rounds and throughout the day; time is exclusive of any procedures or teaching time.
--- NOTE | 2016-12-31 17:44 | CP.PCM.PN ---
Subjective - Date & Time of Evaluation Date of Evaluation: 12/31/16 Time of Evaluation: 09:00 - Subjective Subjective: Patient was seen and examined by me earlier in the day. At that time a friend was at bedside. Patient was awake, alert, however confused. Sometimes answering questions incorrectly. He did follow some basic commands in [place] such as raising his arms and shaking my hand and raising his feet. He is S/P bilateral craniotomy and evacuation of bilateral subdural hematoma. He has bilateral drains at this time. The recorded volume drained is left side 130 and right side [address] for tomorrow already ordered Objective - Vital Signs/Intake and Output Vital Signs (last 24 hours): Temp Pulse Resp BP Pulse Ox 98.1 F 70 12 129/65 98 12/31/16 12:00 12/31/16 15:40 12/31/16 15:40 12/31/16 17:41 12/31/16 15:40 Intake and Output: 12/31/16 12/31/16 06:59 18:59 Intake Total 695 1140 Output Total 580 665 Balance 115 475 - Medications Medications: Current Medications Carvedilol (Coreg) 3.125 mg PO BID [facility] Last Admin: 12/29/16 18:49 Dose: Not Given Digoxin (Lanoxin) 0.25 mg PO DAILY@1800 [facility] Last Admin: 12/29/16 18:49 Dose: Not Given Famotidine (Pepcid) 20 mg IVP Q12 [facility] Last Admin: 12/31/16 10:16 Dose: 20 mg Furosemide (Lasix) 20 mg PO BID [facility] Last Admin: 12/31/16 17:41 Dose: 20 mg Insulin Human Regular (Novolin R) [address] [facility] PRN Reason: Protocol Last Admin: 12/31/16 16:33 Dose: 1 unit Lisinopril (Zestril) 20 mg PO DAILY [facility] Last Admin: 12/31/16 10:16 Dose: 20 mg Pneumococcal Polyvalent Vaccine (Pneumovax 23 Vaccine) 0.5 ml IM .ONCE ONE Stop: 01/01/17 10:01 Rosuvastatin Calcium (Crestor) 20 mg PO HS [facility] Last Admin: 12/30/16 21:41 Dose: 20 mg - Labs Labs: 12/31/16 06:24 12/31/16 06:24 PT 12.2 SECONDS (9.7-12.2) 12/30/16 02:18 INR 1.1 12/30/16 02:18 APTT 27 SECONDS (21-34) 12/30/16 02:18 Assessment and Plan - Assessment and Plan (Free Text) Assessment: 76 year old male PMHx of Hypertension, Hypercholesterolemia, DM2 who was found in the lobby having ataxic gait Plan: Bilateral frontoparietal subdural hematomas left larger than right 12/31: Patient is S/P bilateral craniotomy and evacuation of bilateral subdural hematoma. Repeat CT for tomorrow Head CT: large bilateral frontoparietal subdural hematomas left larger than right. Left side is subacute to chronic and right-sided more chronic in appearance. Significant mass effect with compression of both cerebral hemispheres and mild [id number] midline shift of. Marked compression of the ventricles as well. Neurosurgery ~ Dr. Gill Bradycardia 12/31: HR is NSR 60s to 70s Nonsymptomatic Patient on TELE EKG showed sinus bradycardia with 1st degree AV block Home dose Coreg changed to 3.125mg PO BID Hx of HTN 12/31: Due to low HR the coreg and digoxin on hold at the moment. The BP is mostly 120 systolic range Lisinopril 20mg PO daily Crestor 20mg PO HS Lasix 20mg PO BID Hx of DM Accucheck ACHS Low dose RISS PPX SCDs VTE ppx c/i Pepcid 20mg PO BID
--- NOTE | 2016-12-31 19:02 | OP ---
PROCEDURE DATE: 12/30/2016 PREOPERATIVE DIAGNOSES: Bilateral subdural hematomas. POSTOPERATIVE DIAGNOSES: Bilateral subdural hematomas. PROCEDURE: Right frontoparietal craniotomy, evacuation of subdural hematoma. SURGEON: Matthew Gill MD ANESTHESIA: General endotracheal. ESTIMATED BLOOD LOSS: 25 mL. COMPLICATIONS: None. JUSTIFICATION: The patient is a homeless individual, was found to be confused, seen in the ER. CT d ocumented very large subacute subdural hematomas with significant brain compression. The patient was brought to the OR for evacuation after administrative consent. After prepping and draping, actually lazy S type incisions were traced out just above the superior te mporal line bilaterally. A 10 blade knife was used to make the skin incision, carry it down to the l evel of the calvarium. The Bovie cautery was used to incise the periosteum. Self-retaining retracto rs were placed bilaterally. Mohs Surgeon/General Dermatologist used to make 2 luke holes in the anterior and posterior exten t of the exposed skull. A bone flap was elevated with the craniotome. Immediately encountered was b ulging blue dura. A cruciate incision was then made with a 15 blade knife and the typical chronic cr ankcase subdural hematoma was evacuated. It was very small amounts of solid clot. The subdural spac e was copiously irrigated with antibiotic solution. There was significant membranes that were remove d, both superficially and up against the brain. When the irrigant returned clear, a red rubber rolando ter with some additional holes cut into it was then placed in the subdural space, tunneled out throug h the posterior luke hole site, out a separate stab incision. The dura was reapproximated using interrupted 4-0 Nurolon, a layer of Gelfoam placed in the epidural space, the bone flap reapproximated using 2 CranioFix plates, galea closed using interrupted 0 Vicryl , the skin closed with sony. A tacking suture was placed for the drain, which was then temporaril y clamped. The attention was then turned to the left side. Matthew Gill MD cc: 131 TT: 12/31/2016 19:01:53 en
--- NOTE | 2016-12-31 19:06 | OP ---
PROCEDURE DATE: 12/30/2016 PREOPERATIVE DIAGNOSES: Bilateral subdural hematomas. POSTOPERATIVE DIAGNOSES: Bilateral subdural hematomas. PROCEDURE: Left frontoparietal craniotomy, evacuation of subdural hematomas. SURGEON: Matthew Gill MD ANESTHESIA: General endotracheal. ESTIMATED BLOOD LOSS: 25 mL. COMPLICATIONS: None. JUSTIFICATION: The patient is immediately status post evacuation of a right-sided hematoma in a eileen ent with significant bilateral subdural hematomas. The patient was already intubated and anesthetized. The lazy S incision was opened with a 15 blade. Bovie cautery was used to dissect the periosteum off the skull. Self-retaining retractors were plac ed. Crab Picker was used to make 2 luke holes in the AP extent of the exposed calvarium. Craniotome was then used to elevate the skull flap. There was already a little small opening in the dura which was extended and flipped over in a C-shaped flap. Immediately encountered was typical crankcase subd ural fluid, which was suctioned out and placed in a Lukens trap. The brain was then irrigated copiou sly with antibiotic solution until it returned basically clear. There was a very thin membrane clearly attached to the cortex. This was removed by gently suctioning it up and teasing it open with a 4-0 needle and finally then with Metzenbaums and a bipolar. At this point, a red rubber catheter with some additional holes was placed in the subdural space, emily neled out the posterior luke hole through a separate stab incision. It was cinched in place with an Ethilon suture. A layer of Gelfoam placed over the dura. The bone flap reapproximated using 2 Crani oFix plates. The galea closed using interrupted Vicryl. The skin closed with sony. Bacitracin o intment, then a dressing, was placed. At this point, the patient was aroused from anesthesia and extubated without difficulty. The 2 red r ubber catheters were connected to passive sterile [place] drainage systems. The patient was then broug ht to the recovery room. Matthew Gill MD cc: 131 TT: 12/31/2016 19:06:09 en
--- NOTE | 2017-01-01 06:13 | CP.CCUPN ---
<Joni Urban - Last Filed: 01/01/17 11:46> CCU Subjective - Physician Review Subjective (Free Text): 01/01/17 06:14 Pt seen and examined at bedside. POD #2 s/p b/l craniotomy. Nursing reports no acute events overnight. He is for follow up CT head this AM. He has bilateral parietal drains that put out zero cc overnight on right, and 100cc on the left overnight. Pt is able to move all his extremities when asked, but remains oriented to person only. He becomes confused and states 'he is in [place].' He denies any complaints at this time. Critical Care Time Spent (in minutes): 40 CCU Objective - Vital Signs / Intake & Output Vital Signs (Last 4 hours): Vital Signs Temp Pulse Resp BP Pulse Ox 01/01/17 06:00 67 18 99 01/01/17 05:20 85 15 116/60 99 01/01/17 05:00 77 17 99 01/01/17 04:19 68 21 116/52 L 99 01/01/17 04:00 98.8 F 80 18 98 01/01/17 03:19 68 25 H 112/47 L 97 01/01/17 03:00 91 H 17 99 01/01/17 02:20 77 13 109/58 L 98 Intake and Output (Last 8hrs): Intake & Output 12/31/16 12/31/16 01/01/17 14:59 22:59 06:59 Intake Total 1065 695 50 Output Total 690 480 470 Balance 375 215 -420 Intake: Intake, IV Amount 675 75 Left Forearm 600 75 Right Forearm 75 Oral 390 620 50 Output: Drainage 255 45 100 Left Parietal 155 45 100 Right Parietal 100 0 0 Urine 435 435 370 Urethral (De Dios) 435 435 370 - Physical Exam Head: Positive for: Other (bilateral parietal drains) Pupils: Positive for: PERRL Extroacular Muscles: Positive for: EOMI Conjunctiva: Positive for: Normal Mouth: Positive for: Moist Mucous Membranes Neck: Positive for: Normal Range of Motion Respiratory/Chest: Positive for: Clear to Auscultation, Good Air Exchange. Negative for: Respiratory Distress, Accessory Muscle Use Cardiovascular: Positive for: Regular Rate and Rhythm, Normal S1, S2 Abdomen: Positive for: Normal Bowel Sounds. Negative for: Tenderness, Distention Upper Extremity: Positive for: Normal Inspection Lower Extremity: Positive for: Normal Inspection Neurological: Positive for: GCS=15, Speech Normal Skin: Positive for: Warm, Dry, Normal Color Psychiatric: Positive for: Alert. Negative for: Oriented x 3 (person only) - Medications Active Medications: Active Medications Generic Name Dose Route Start Last Admin Trade Name Freq PRN Reason Stop Dose Admin Carvedilol 3.125 mg 12/29/16 18:00 12/29/16 18:49 Coreg PO Not Given BID [facility] Digoxin 0.25 mg 12/29/16 18:00 12/29/16 18:49 Lanoxin PO Not Given DAILY@1800 [facility] Famotidine 20 mg 12/30/16 22:00 12/31/16 21:58 Pepcid IVP 20 mg Q12 JANE Administration Furosemide 20 mg 12/29/16 18:00 12/31/16 17:41 Lasix PO 20 mg BID JANE Administration Insulin Human Regular 0 unit 12/31/16 16:30 12/31/16 21:51 Novolin R SC Not Given ACHS [facility] Protocol Lisinopril 20 mg 12/29/16 17:00 12/31/16 10:16 Zestril PO 20 mg DAILY JANE Administration Pneumococcal Polyvalent Vaccine 0.5 ml 01/01/17 10:00 Pneumovax 23 Vaccine IM 01/01/17 10:01 .ONCE ONE Rosuvastatin Calcium 20 mg 12/29/16 22:00 12/31/16 21:58 Crestor PO 20 mg HS JANE Administration - Patient Studies Lab Studies: Microbiology Studies 12/30/16 19:00 MRSA Culture (Admit) - Final Naris MRSA NOT DETECTED Lab Studies 12/31/16 12/31/16 12/31/16 Range/Units 21:19 16:27 11:18 WBC (4.8-10.8) K/uL RBC (4.40-5.90) Mil/uL Hgb (12.0-18.0) g/dL Hct (35.0-51.0) % MCV (80.0-94.0) fL MCH (27.0-31.0) pg MCHC (33.0-37.0) g/dL RDW (11.5-14.5) % Plt Count (130-400) K/uL MPV (7.2-11.7) fL Neut % (Auto) (50.0-75.0) % Lymph % (Auto) (20.0-40.0) % [place] % (Auto) (0.0-10.0) % Eos % (Auto) (0.0-4.0) % Baso % (Auto) (0.0-2.0) % Neut # (1.8-7.0) K/uL Lymph # (1.0-4.3) K/uL [place] # (0.0-0.8) K/uL Eos # (0.0-0.7) K/uL Baso # (0.0-0.2) K/uL Neutrophils % (Manual) (50-75) % Lymphocytes % (Manual) (20-40) % Monocytes % (Manual) (0-10) % Platelet Estimate (NORMAL) RBC Morphology Sodium (132-148) mmol/L Potassium (3.6-5.2) mmol/L Chloride (98-107) mmol/L Carbon Dioxide (22-30) mmol/L Anion Gap (10-20) BUN (9-20) mg/dL Creatinine (0.8-1.5) MG/DL Est GFR ( Amer) Est GFR (Non-Af Amer) POC Glucose (mg/dL) 127 H 161 H 154 H (65-110) mg/dL Random Glucose (75-110) mg/dL Calcium (8.6-10.4) mg/dl Phosphorus (2.5-4.5) mg/dL Magnesium (1.6-2.3) mg/dL Total Bilirubin (0.2-1.3) mg/dL AST (17-59) U/L ALT (21-72) U/L Alkaline Phosphatase (38-126) U/L Total Protein (6.3-8.3) g/dL Albumin (3.5-5.0) g/dL Globulin (2.2-3.9) gm/dL Albumin/Globulin Ratio (1.0-2.1) Triglycerides (0-149) mg/dL Cholesterol (0-199) mg/dL LDL Cholesterol Direct (0-129) mg/dL HDL Cholesterol (30-70) mg/dL 12/31/16 12/31/16 Range/Units 06:24 06:24 WBC 10.4 (4.8-10.8) K/uL RBC 4.45 (4.40-5.90) Mil/uL Hgb 13.9 (12.0-18.0) g/dL Hct 41.2 (35.0-51.0) % MCV 92.5 (80.0-94.0) fL MCH 31.3 H (27.0-31.0) pg MCHC 33.8 (33.0-37.0) g/dL RDW 14.1 (11.5-14.5) % Plt Count 141 (130-400) K/uL MPV 10.0 (7.2-11.7) fL Neut % (Auto) 80.8 H (50.0-75.0) % Lymph % (Auto) 7.9 L (20.0-40.0) % [place] % (Auto) 10.9 H (0.0-10.0) % Eos % (Auto) 0.2 (0.0-4.0) % Baso % (Auto) 0.2 (0.0-2.0) % Neut # 8.4 H (1.8-7.0) K/uL Lymph # 0.8 L (1.0-4.3) K/uL [place] # 1.1 H (0.0-0.8) K/uL Eos # 0.0 (0.0-0.7) K/uL Baso # 0.0 (0.0-0.2) K/uL Neutrophils % (Manual) 88 H (50-75) % Lymphocytes % (Manual) 7 L (20-40) % Monocytes % (Manual) 5 (0-10) % Platelet Estimate Normal (NORMAL) RBC Morphology Normal Sodium 139 (132-148) mmol/L Potassium 4.1 (3.6-5.2) mmol/L Chloride 100 (98-107) mmol/L Carbon Dioxide 27 (22-30) mmol/L Anion Gap 15 (10-20) BUN 14 (9-20) mg/dL Creatinine 0.7 L (0.8-1.5) MG/DL Est GFR ( Amer) > 60 Est GFR (Non-Af Amer) > 60 POC Glucose (mg/dL) (65-110) mg/dL Random Glucose 112 H (75-110) mg/dL Calcium 8.4 L (8.6-10.4) mg/dl Phosphorus 3.6 (2.5-4.5) mg/dL Magnesium 1.6 (1.6-2.3) mg/dL Total Bilirubin 1.0 (0.2-1.3) mg/dL AST 41 (17-59) U/L ALT 12 L D (21-72) U/L Alkaline Phosphatase 102 (38-126) U/L Total Protein 6.7 (6.3-8.3) g/dL Albumin 3.5 (3.5-5.0) g/dL Globulin 3.2 (2.2-3.9) gm/dL Albumin/Globulin Ratio 1.1 (1.0-2.1) Triglycerides 64 D (0-149) mg/dL Cholesterol 116 (0-199) mg/dL LDL Cholesterol Direct 56 (0-129) mg/dL HDL Cholesterol 41 (30-70) mg/dL Laboratory Results - last 24 hr 12/31/16 12/31/16 12/31/16 06:24 06:24 11:18 WBC 10.4 RBC 4.45 Hgb 13.9 Hct 41.2 MCV 92.5 MCH 31.3 H MCHC 33.8 RDW 14.1 Plt Count 141 MPV 10.0 Neut % (Auto) 80.8 H Lymph % (Auto) 7.9 L [place] % (Auto) 10.9 H Eos % (Auto) 0.2 Baso % (Auto) 0.2 Neut # 8.4 H Lymph # 0.8 L [place] # 1.1 H Eos # 0.0 Baso # 0.0 Neutrophils % (Manual) 88 H Lymphocytes % (Manual) 7 L Monocytes % (Manual) 5 Platelet Estimate Normal RBC Morphology Normal Sodium 139 Potassium 4.1 Chloride 100 Carbon Dioxide 27 Anion Gap 15 BUN 14 Creatinine 0.7 L Est GFR ( Amer) > 60 Est GFR (Non-Af Amer) > 60 POC Glucose (mg/dL) 154 H Random Glucose 112 H Calcium 8.4 L Phosphorus 3.6 Magnesium 1.6 Total Bilirubin 1.0 AST 41 ALT 12 L D Alkaline Phosphatase 102 Total Protein 6.7 Albumin 3.5 Globulin 3.2 Albumin/Globulin Ratio 1.1 Triglycerides 64 D Cholesterol 116 LDL Cholesterol Direct 56 HDL Cholesterol 41 12/31/16 12/31/16 16:27 21:19 WBC RBC Hgb Hct MCV MCH MCHC RDW Plt Count MPV Neut % (Auto) Lymph % (Auto) [place] % (Auto) Eos % (Auto) Baso % (Auto) Neut # Lymph # [place] # Eos # Baso # Neutrophils % (Manual) Lymphocytes % (Manual) Monocytes % (Manual) Platelet Estimate RBC Morphology Sodium Potassium Chloride Carbon Dioxide Anion Gap BUN Creatinine Est GFR ( Amer) Est GFR (Non-Af Amer) POC Glucose (mg/dL) 161 H 127 H Random Glucose Calcium Phosphorus Magnesium Total Bilirubin AST ALT Alkaline Phosphatase Total Protein Albumin Globulin Albumin/Globulin Ratio Triglycerides Cholesterol LDL Cholesterol Direct HDL Cholesterol Fingerstick Blood Sugar Results: 161 Review of Systems - Constitutional Constitutional: absent: Fever, Chills - EENT Eyes: absent: Change in Vision Ears: absent: Decreased Hearing - Cardiovascular Cardiovascular: absent: Chest Pain, Chest Pain at Rest, Dyspnea, Edema - Respiratory Respiratory: absent: Dyspnea, Dyspnea on Exertion - Gastrointestinal Gastrointestinal: absent: Abdominal Pain, Nausea, Vomiting - Genitourinary Genitourinary: absent: Dysuria - Musculoskeletal Musculoskeletal: absent: Back Pain - Neurological Neurological: absent: Tingling, Weakness - Psychiatric Psychiatric: absent: Anxiety, Depression Critical Care Progress Note - Nutrition Nutrition: Nutrition Category Date Time Status Diabetic [Consistent Carbohydrate] [DIET] Diets 12/31/16 Lunch Active Assessment/Plan - Assessment and Plan (Free Text) Assessment: 76 year old male PMHx of Hypertension, Hypercholesterolemia, DM2 who was found to have bilateral subdural hematomas. Craniotomy performed 12/30/16. Plan: Neuro Bilateral frontoparietal subdural hematomas s/p craniotomy POD #2, 0cc drainage overnight on right, 100cc on left Head CT (01/01): s/p insertion of 2 b/l frontal drainage catheters since previos exam. Interval decrease in b/l subdural hematomas since previous CT. Decrease in size of mass effect, midline shift compared to prior CT. (see full report) Head CT (12/30): interval mild worsening of left subdural hematoma since prior exam; Refer to full report. Head CT (on admission 12/29): large bilateral frontoparietal subdural hematomas left larger than right. Left side is subacute to chronic and right-sided more chronic in appearance. Significant mass effect with compression of both cerebral hemispheres and mild [id number] midline shift. Marked compression of the ventricles as well. Findings also suggest mild diffuse cerebral edema. ( see full report) Neurosurgery Dr. Gill/Seymour, help appreciated -concern for focal motor seizures, recommend neuro consult - CT head on 01/01: residual SDH and air in subdural space- to be expected - d/c drains, OOB to chair, Transfer to floor in AM Neurology consult: Dr. Maxwell Deshpande - EEG when drains out, B12 level, TSH/Free T4 CV Bradycardia Asymptomatic, oxygen via nc EKG showed sinus bradycardia with 1st degree AV block Coreg and Digoxin held Monitor HR Hx of HTN Coreg 3.125mg PO BID-Held bc of bradycardia Digoxin 0.25mg PO daily-Held bc of bradycardia Lisinopril 20mg PO daily Crestor 20mg PO HS Lasix 20mg PO BID Monitor BP Pulm: Questionable PNA Afebrile, No Leukocytosis CXR (12/30/16): Patchy right lower lobe opacities may reflect atelectasis or pneumonia. (see full report) CXR (12/31/16): Elevated left hemidiaphragm. Patchy increased markings at both lung bases with trace b/l pleural effusions. Biapical pleural thickening with upper lobe granulomatous changes. Mild venous congestion. Right hilar prominence (see full report) ENDO Hx of DM BG mildly elevated Accucheck ACHS Low dose RISS Hgb A1c 6.8 Cholesterol panel WNL PPX SCDs VTE ppx c/i bc of bleed Pepcid 20mg PO BID <Dawood Montenegro - Last Filed: 01/01/17 14:48> CCU Objective - Vital Signs / Intake & Output Vital Signs (Last 4 hours): Vital Signs Pulse Resp BP Pulse Ox 01/01/17 10:55 72 27 H 145/65 99 Intake and Output (Last 8hrs): Intake & Output 12/31/16 01/01/17 01/01/17 22:59 06:59 14:59 Intake Total 695 50 420 Output Total 480 470 110 Balance 215 -420 310 Intake: Intake, IV Amount 75 Left Forearm 75 Oral 620 50 420 Output: Drainage 45 100 Left Parietal 45 100 Right Parietal 0 0 Urine 435 370 110 Urethral (De Dios) 435 370 110 - Medications Active Medications: Active Medications Generic Name Dose Route Start Last Admin Trade Name Jamel PRN Reason Stop Dose Admin Carvedilol 3.125 mg 12/29/16 18:00 12/29/16 18:49 Coreg PO Not Given BID [facility] Digoxin 0.25 mg 12/29/16 18:00 12/29/16 18:49 Lanoxin PO Not Given DAILY@1800 [facility] Famotidine 20 mg 12/30/16 22:00 01/01/17 09:21 Pepcid IVP 20 mg Q12 JANE Administration Furosemide 20 mg 12/29/16 18:00 01/01/17 09:22 Lasix PO 20 mg BID JANE Administration Insulin Human Regular 0 unit 12/31/16 16:30 01/01/17 13:38 Novolin R SC 1 unit ACHS JANE Administration Protocol Lisinopril 20 mg 12/29/16 17:00 01/01/17 09:22 Zestril PO 20 mg DAILY [facility]ANE Administration Rosuvastatin Calcium 20 mg 12/29/16 22:00 12/31/16 21:58 Crestor PO 20 mg HS JANE Administration - Patient Studies Lab Studies: Microbiology Studies 12/30/16 19:00 MRSA Culture (Admit) - Final Naris MRSA NOT DETECTED Lab Studies 01/01/17 01/01/17 01/01/17 Range/Units 11:37 08:06 06:15 WBC (4.8-10.8) K/uL RBC (4.40-5.90) Mil/uL Hgb (12.0-18.0) g/dL Hct (35.0-51.0) % MCV (80.0-94.0) fL MCH (27.0-31.0) pg MCHC (33.0-37.0) g/dL RDW (11.5-14.5) % Plt Count (130-400) K/uL MPV (7.2-11.7) fL Neut % (Auto) (50.0-75.0) % Lymph % (Auto) (20.0-40.0) % [place] % (Auto) (0.0-10.0) % Eos % (Auto) (0.0-4.0) % Baso % (Auto) (0.0-2.0) % Neut # (1.8-7.0) K/uL Lymph # (1.0-4.3) K/uL [place] # (0.0-0.8) K/uL Eos # (0.0-0.7) K/uL Baso # (0.0-0.2) K/uL Sodium 133 (132-148) mmol/L Potassium 3.8 (3.6-5.2) mmol/L Chloride 94 L (98-107) mmol/L Carbon Dioxide 29 (22-30) mmol/L Anion Gap 13 (10-20) BUN 14 (9-20) mg/dL Creatinine 0.9 (0.8-1.5) MG/DL Est GFR ( Amer) > 60 Est GFR (Non-Af Amer) > 60 POC Glucose (mg/dL) 155 H 126 H (65-110) mg/dL Random Glucose 128 H (75-110) mg/dL Calcium 8.0 L (8.6-10.4) mg/dl Phosphorus 3.2 (2.5-4.5) mg/dL Magnesium 1.6 (1.6-2.3) mg/dL Total Bilirubin 1.2 (0.2-1.3) mg/dL AST 30 (17-59) U/L ALT 21 D (21-72) U/L Alkaline Phosphatase 94 (38-126) U/L Total Protein 6.6 (6.3-8.3) g/dL Albumin 3.4 L (3.5-5.0) g/dL Globulin 3.2 (2.2-3.9) gm/dL Albumin/Globulin Ratio 1.1 (1.0-2.1) 01/01/17 12/31/16 12/31/16 Range/Units 06:15 21:19 16:27 WBC 9.8 (4.8-10.8) K/uL RBC 4.48 (4.40-5.90) Mil/uL Hgb 13.9 (12.0-18.0) g/dL Hct 41.1 (35.0-51.0) % MCV 91.7 (80.0-94.0) fL MCH 31.0 (27.0-31.0) pg MCHC 33.8 (33.0-37.0) g/dL RDW 13.6 (11.5-14.5) % Plt Count 137 (130-400) K/uL MPV 9.6 (7.2-11.7) fL Neut % (Auto) 75.5 H (50.0-75.0) % Lymph % (Auto) 11.0 L (20.0-40.0) % [place] % (Auto) 12.8 H (0.0-10.0) % Eos % (Auto) 0.4 (0.0-4.0) % Baso % (Auto) 0.3 (0.0-2.0) % Neut # 7.4 H (1.8-7.0) K/uL Lymph # 1.1 (1.0-4.3) K/uL [place] # 1.3 H (0.0-0.8) K/uL Eos # 0.0 (0.0-0.7) K/uL Baso # 0.0 (0.0-0.2) K/uL Sodium (132-148) mmol/L Potassium (3.6-5.2) mmol/L Chloride (98-107) mmol/L Carbon Dioxide (22-30) mmol/L Anion Gap (10-20) BUN (9-20) mg/dL Creatinine (0.8-1.5) MG/DL Est GFR ( Amer) Est GFR (Non-Af Amer) POC Glucose (mg/dL) 127 H 161 H (65-110) mg/dL Random Glucose (75-110) mg/dL Calcium (8.6-10.4) mg/dl Phosphorus (2.5-4.5) mg/dL Magnesium (1.6-2.3) mg/dL Total Bilirubin (0.2-1.3) mg/dL AST (17-59) U/L ALT (21-72) U/L Alkaline Phosphatase (38-126) U/L Total Protein (6.3-8.3) g/dL Albumin (3.5-5.0) g/dL Globulin (2.2-3.9) gm/dL Albumin/Globulin Ratio (1.0-2.1) Laboratory Results - last 24 hr 12/31/16 12/31/16 01/01/17 16:27 21:19 06:15 WBC 9.8 RBC 4.48 Hgb 13.9 Hct 41.1 MCV 91.7 MCH 31.0 MCHC 33.8 RDW 13.6 Plt Count 137 MPV 9.6 Neut % (Auto) 75.5 H Lymph % (Auto) 11.0 L [place] % (Auto) 12.8 H Eos % (Auto) 0.4 Baso % (Auto) 0.3 Neut # 7.4 H Lymph # 1.1 [place] # 1.3 H Eos # 0.0 Baso # 0.0 Sodium Potassium Chloride Carbon Dioxide Anion Gap BUN Creatinine Est GFR ( Amer) Est GFR (Non-Af Amer) POC Glucose (mg/dL) 161 H 127 H Random Glucose Calcium Phosphorus Magnesium Total Bilirubin AST ALT Alkaline Phosphatase Total Protein Albumin Globulin Albumin/Globulin Ratio 01/01/17 01/01/17 01/01/17 06:15 08:06 11:37 WBC RBC Hgb Hct MCV MCH MCHC RDW Plt Count MPV Neut % (Auto) Lymph % (Auto) [place] % (Auto) Eos % (Auto) Baso % (Auto) Neut # Lymph # [place] # Eos # Baso # Sodium 133 Potassium 3.8 Chloride 94 L Carbon Dioxide 29 Anion Gap 13 BUN 14 Creatinine 0.9 Est GFR ( Amer) > 60 Est GFR (Non-Af Amer) > 60 POC Glucose (mg/dL) 126 H 155 H Random Glucose 128 H Calcium 8.0 L Phosphorus 3.2 Magnesium 1.6 Total Bilirubin 1.2 AST 30 ALT 21 D Alkaline Phosphatase 94 Total Protein 6.6 Albumin 3.4 L Globulin 3.2 Albumin/Globulin Ratio 1.1 Critical Care Progress Note - Nutrition Nutrition: Nutrition Category Date Time Status Diabetic [Consistent Carbohydrate] [DIET] Diets 12/31/16 Lunch Active Attending/Attestation - Attestation I have personally seen and examined this patient.: Yes I have fully participated in the care of the patient.: Yes I have reviewed all pertinent clinical information: Yes Notes (Text): 01/01/17 14:46 I have seen and examined the patient. Medical records, lab studies, and imaging were reviewed by me and a management plan was formulated on multidisciplinary rounds with resident Dr. Urban. I agree with their above documented assessment and plan. Patient is alert but not oriented to person, place or time. Showing signs of dementia, uncertain of his baseline. CT Head show improvement in Bilateral SDH. No need for seizure prophylaxis, will obtain EEG. Neuro consulted and following. Neurosurgery managing subdural drains. Critical Care Time 35 minutes. Multi-disciplinary rounds were performed with house staff, nursing, speech therapy, respiratory therapy, pharmacy and nutrition with integrated input from the primary team/attending and other consulting services. The documented time is cumulative and includes review of patient data/exams/labs/chart review and examination of the patient on rounds and throughout the day; time is exclusive of any procedures or teaching time. 01/01/17 14:47
[2017-01-01 06:18] LABS: BASO % 0.3 % (0.0-2.0); EOS % 0.4 % (0.0-4.0); HEMATOCRIT 41.1 % (35.0-51.0); LYMPH # 1.1 K/uL (1.0-4.3); MEAN CELL VOLUME 91.7 fL (80.0-94.0); MEAN CORPUSCULAR HGB CONC 33.8 g/dL (33.0-37.0); MEAN PLATELET VOLUME 9.6 fL (7.2-11.7); MONO # 1.3 K/uL (0.0-0.8); MONO % 12.8 % (0.0-10.0); RED CELL DISTRIBUTION WIDTH 13.6 % (11.5-14.5); WHITE BLOOD COUNT 9.8 K/uL (4.8-10.8)
[2017-01-01 06:36] LABS: CHLORIDE 94 mmol/L (98-107); POTASSIUM 3.8 mmol/L (3.6-5.2); SODIUM 133 mmol/L (132-148)
[2017-01-01 06:38] LABS: ALB/GLOB RATIO 1.1 (1.0-2.1); ALKALINE PHOSPHATASE 94 U/L (38-126); ALT/SGPT 21 U/L (21-72); AST/SGOT 30 U/L (17-59); BILIRUBIN,TOTAL 1.2 mg/dL (0.2-1.3); BLOOD UREA NITROGEN 14 mg/dL (9-20); CARBON DIOXIDE 29 mmol/L (22-30); GFR AFRICAN-AMERICAN > 60; TOTAL PROTEIN 6.6 g/dL (6.3-8.3)
[2017-01-01 06:39] LABS: GLUCOSE,RANDOM 128 mg/dL (75-110); MAGNESIUM 1.6 mg/dL (1.6-2.3); PHOSPHOROUS 3.2 mg/dL (2.5-4.5)
[2017-01-01] MEDS: (Novolin R) Insulin Human Regular 100 units/ml vial SC SCH ×4 (08:10→21:34)
[2017-01-01] MEDS ORDERED: Pneumococcal 23-Valent Vaccine IM ONE (10:00)
--- NOTE | 2017-01-01 10:44 | CP.PCM.PN ---
Subjective - Date & Time of Evaluation Date of Evaluation: 01/01/17 Time of Evaluation: 10:42 - Subjective Subjective: pt awake alert confused disoriented AMANDA Drain putting out reasonable amount CT still has resideual SDH and air in subdural space- expected Drain d/lawrence oob adv activites Objective - Vital Signs/Intake and Output Vital Signs (last 24 hours): Temp Pulse Resp BP Pulse Ox 98 F 62 18 120/48 L 99 01/01/17 08:00 01/01/17 09:19 01/01/17 09:19 01/01/17 09:22 01/01/17 09:19 Intake and Output: 01/01/17 01/01/17 06:59 18:59 Intake Total 300 300 Output Total 650 50 Balance -350 250 - Medications Medications: Current Medications Carvedilol (Coreg) 3.125 mg PO BID [facility] Last Admin: 12/29/16 18:49 Dose: Not Given Digoxin (Lanoxin) 0.25 mg PO DAILY@1800 [facility] Last Admin: 12/29/16 18:49 Dose: Not Given Famotidine (Pepcid) 20 mg IVP Q12 [facility] Last Admin: 01/01/17 09:21 Dose: 20 mg Furosemide (Lasix) 20 mg PO BID [facility] Last Admin: 01/01/17 09:22 Dose: 20 mg Insulin Human Regular (Novolin R) 0 unit SC [facility] PRN Reason: Protocol Last Admin: 01/01/17 08:10 Dose: Not Given Lisinopril (Zestril) 20 mg PO DAILY [facility] Last Admin: 01/01/17 09:22 Dose: 20 mg Rosuvastatin Calcium (Crestor) 20 mg PO HS [facility] Last Admin: 12/31/16 21:58 Dose: 20 mg - Labs Labs: 01/01/17 06:15 01/01/17 06:15 PT 12.2 SECONDS (9.7-12.2) 12/30/16 02:18 INR 1.1 12/30/16 02:18 APTT 27 SECONDS (21-34) 12/30/16 02:18
--- NOTE | 2017-01-01 11:15 | CT ---
PROCEDURE: CT HEAD WITHOUT CONTRAST. HISTORY: f/u sdh COMPARISON: Comparison is made to the previous study dated 12/30/2016 TECHNIQUE: Axial computed tomography images were obtained through the head/brain without intravenous contrast. Radiation dose: Total exam DLP = 1026.0 mGy-cm. This CT exam was performed using one or more of the following dose reduction techniques: Automated exposure control, adjustment of the mA and/or kV according to patient size, and/or use of iterative reconstruction technique. FINDINGS: HEMORRHAGE: Interval insertion of left-sided extra-axial drainage catheter since the previous exam. Interval decrease in the size of the previously depicted subacute subdural hematoma. 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 There are foci of high attenuation at the extra-axial space in both frontal region likely represent postsurgical changes. BRAIN: Interval appearance of small to moderate amount of pneumocephalus in the bifrontal extra-axial space also consistent with postsurgical changes. Interval improvement in the previously seen mass effect on the lateral ventricles since the previous exam. Interval improvement in the previously seen bilateral effacement of the sulci suggestive of interval decrease in the intracranial pressure compared to the previous study. Interval improvement in the bibasilar cistern since the previous exam. Interval improvement in the previously seen [id number] midline shift. VENTRICLES: The lateral ventricles appears slightly larger compared to the previous exam. CALVARIUM: Bilateral frontal pinhole and craniotomy changes are seen. Postsurgical changes seen in the frontal scalp bilaterally. PARANASAL SINUSES: Mild mucosal thickening in the ethmoid MASTOID AIR CELLS: Unremarkable as visualized. No inflammatory changes. OTHER FINDINGS: None. IMPRESSION: Status post insertion of extra-axial 2 bilateral frontal drainage catheters since the previous exam. Interval decrease in the size of the bilateral subdural hematomas since the previous study. Interval decrease in the size of the mass effect, effacement of the sulci and [id number] midline shift since the previous study. Postsurgical changes in the bifrontal regions. Follow-up reassessment is recommended.
--- NOTE | 2017-01-01 11:23 | CON ---
DATE: 01/01/2017 REASON FOR CONSULTATION: Altered mental status. HISTORY OF PRESENT ILLNESS: The patient is a 76-year-old male who was found in the lobby having atax ic gait and sent to the Emergency Room. The patient apparently had a CT scan of the head which showe d bilateral subdural hematomas. The patient had a craniotomy done. The patient appears to be very c onfused, with some twitching movements noted. All history from the chart. The patient unable to giv e any reasonable history. The patient is status post craniotomy. REVIEW OF SYSTEMS: Denies any headache, dizziness, chest pain, shortness of breath, abdominal pain, constipation, diarrhea, cough or sputum production. PAST MEDICAL HISTORY: Includes diabetes mellitus, hypertension, hypercholesterolemia. CURRENT MEDICATIONS: Coreg, Crestor, Lanoxin, Lasix, insulin, Pepcid, lisinopril. ALLERGIES: No known drug allergies. SOCIAL HISTORY: The patient is a nonsmoker, nonalcoholic, does not use any illicit drugs. FAMILY HISTORY: Noncontributory. PHYSICAL EXAMINATION: GENERAL: The patient is an elderly pleasant male lying on the bed in no acute distress. VITAL SIGNS: Blood pressure is 120/48, heart rate is 62 per minute, breathing at a rate of 16 per mi nute, temperature is 98 degrees Fahrenheit. HEENT: Head was normocephalic. There are drains on both sides of the scalp. NECK: Supple. There are no carotid bruits. LUNGS: Clear. CARDIOVASCULAR: S1, S2 audible. No murmurs. ABDOMEN: Soft and nontender with bowel sounds present. NEUROLOGIC EXAMINATION: MENTAL STATUS: The patient is awake, alert. He knows his name. He knows that he is in the hospital . Does not know the year or the month or the name of the president. He follows simple commands. CRANIAL NERVES: Pupils are 3 mm, minimally reactive to light. Visual garnica are full. Extraocular movements are intact. There is no facial asymmetry. MOTOR: Tone is normal. Power in the upper extremities is 4/5, in the lower extremity 3/5 on the rig ht, on the left is 2-3/5. Reflexes 1+ and symmetrical with absent ankle jerk. Plantars downgoing bi laterally. CEREBELLAR: [id number] shows no dysmetria. SENSORY: Intact to soft touch bilaterally. GAIT: Deferred at the moment. LABORATORY DATA: Labs reviewed, shows WBC of 9.8, hemoglobin 13.9, hematocrit 41.1 and platelets of 137. Sodium is 133, potassium 3.8, chloride 94, carbon dioxide content 29, BUN of 14, creatinine 0.9 , and glucose of 128. His CT scan of the head, prior to craniotomy, showed large bilateral frontopar ietal subdural hematomas, left larger than the right. Left side is subacute to chronic and right rohan e more chronic in appearance, significant mass effect with compression of both cerebral hemispheres. Mild left to right midline shift. CT scan of the head post-craniotomy shows interval mild worsening of the left subdural hematoma since the previous exam. Interval mild worsening of the mass effect o n the left brain and left to right midline shift to the previous study. IMPRESSION: 1. Altered mental status, which is likely secondary to his underlying dementia. 2. Subdural hematoma status post craniotomy. RECOMMENDATIONS: 1. The patient to have an electroencephalogram once the drains are out so that there is room for inge ctrode placement. 2. The patient to have vitamin B12 level. 3. The patient also to have thyroid function testing. 4. Please continue supportive care and other treatment. Thank you for the opportunity to participate in the care of this patient. Susy Deshpande MD cc: [id number] TT: 01/01/2017 11:22:06 Confirmation # [id number] Dictation # [id number] janelle
--- NOTE | 2017-01-01 17:09 | CP.PCM.PN ---
Subjective - Date & Time of Evaluation Date of Evaluation: 01/01/17 Time of Evaluation: 16:00 - Subjective Subjective: Earlier today the patient had his bilateral drains removed. He is currently out of bed to chair. He was not in any distress and alert and awake - however confused to place and also time. He follows some very simple commands in [place]. He was able to raise both arms and hold it against gravity, shake my hand, stick his tounge out. Raise his knees as well. 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 julio cesar cardia - HR is mostly in the 90s, regular with occasional PVC Objective - Vital Signs/Intake and Output Vital Signs (last 24 hours): Temp Pulse Resp BP Pulse Ox 97.9 F 88 26 H 122/75 94 L 01/01/17 16:00 01/01/17 15:19 01/01/17 15:19 01/01/17 15:19 01/01/17 15:19 Intake and Output: 01/01/17 01/01/17 06:59 18:59 Intake Total 300 900 Output Total 650 410 Balance -350 490 - Medications Medications: Current Medications Carvedilol (Coreg) 3.125 mg PO BID [facility] Last Admin: 12/29/16 18:49 Dose: Not Given Digoxin (Lanoxin) 0.25 mg PO DAILY@1800 [facility] Last Admin: 12/29/16 18:49 Dose: Not Given Famotidine (Pepcid) 20 mg IVP Q12 [facility] Last Admin: 01/01/17 09:21 Dose: 20 mg Furosemide (Lasix) 20 mg PO BID [facility] Last Admin: 01/01/17 09:22 Dose: 20 mg Insulin Human Regular (Novolin R) 0 unit SC ACHS [facility] PRN Reason: Protocol Last Admin: 01/01/17 13:38 Dose: 1 unit Lisinopril (Zestril) 20 mg PO DAILY [facility] Last Admin: 01/01/17 09:22 Dose: 20 mg Rosuvastatin Calcium (Crestor) 20 mg PO HS [facility] Last Admin: 12/31/16 21:58 Dose: 20 mg - Labs Labs: 01/01/17 06:15 01/01/17 06:15 PT 12.2 SECONDS (9.7-12.2) 12/30/16 02:18 INR 1.1 12/30/16 02:18 APTT 27 SECONDS (21-34) 12/30/16 02:18 - Constitutional Appears: No Acute Distress, Confused, Chronically Ill - Head Exam Additional comments: S/P bilateral bilateral craniotomy and evacuation of bilateral subdural hematoma. Amanda intact, no bleeding, no discharge - Eye Exam Eye Exam: EOMI - ENT Exam ENT Exam: Mucous Membranes Moist - Respiratory Exam Respiratory Exam: Clear to Ausculation Bilateral, NORMAL BREATHING PATTERN - Cardiovascular Exam Cardiovascular Exam: REGULAR RHYTHM - GI/Abdominal Exam GI & Abdominal Exam: Soft. absent: Guarding, Rigid, Tenderness Assessment and Plan - Assessment and Plan (Free Text) Assessment: 76 year old male PMHx of Hypertension, Hypercholesterolemia, DM2 who was found in the lobby having ataxic gait Plan: Bilateral frontoparietal subdural hematomas left larger than right 01/01: The bilateral drains were removed. He had a CT today showingdecrease in the size of the subdural hematoma from before and decrease in the size of the mass effect. 12/31: Patient is S/P bilateral craniotomy and evacuation of bilateral subdural hematoma. Repeat CT for tomorrow Head CT: large bilateral frontoparietal subdural hematomas left larger than right. Left side is subacute to chronic and right-sided more chronic in appearance. Significant mass effect with compression of both cerebral hemispheres and mild [id number] midline shift of. Marked compression of the ventricles as well. Neurosurgery ~ Dr. Gill Bradycardia 01/01: Better, HR is 90s now. 12/31: HR is NSR 60s to 70s Nonsymptomatic Patient on TELE EKG showed sinus bradycardia with 1st degree AV block Home dose Coreg changed to 3.125mg PO BID Hx of HTN 12/31: Due to low HR the coreg and digoxin on hold at the moment. The BP is mostly 120 systolic range Lisinopril 20mg PO daily Crestor 20mg PO HS Lasix 20mg PO BID Hx of DM Accucheck ACHS Low dose RISS PPX SCDs VTE ppx c/i Pepcid 20mg PO BID
[2017-01-02] MEDS: (Novolin R) Insulin Human Regular 100 units/ml vial SC SCH ×4 (08:19→22:27)
--- NOTE | 2017-01-02 08:54 | CP.PCM.PN ---
Subjective - Date & Time of Evaluation Date of Evaluation: 01/02/17 Time of Evaluation: 08:53 - Subjective Subjective: awake alert orineted to name only follows commands AMANDA no drift ok to mobilize and transfer to floor Objective - Vital Signs/Intake and Output Vital Signs (last 24 hours): Temp Pulse Resp BP Pulse Ox 98.7 F 70 18 105/47 L 95 01/02/17 08:00 01/02/17 07:19 01/02/17 07:19 01/02/17 08:21 01/02/17 07:19 Intake and Output: 01/02/17 01/02/17 06:59 18:59 Intake Total 400 100 Output Total 620 150 Balance -220 -50 - Medications Medications: Current Medications Carvedilol (Coreg) 3.125 mg PO BID [facility] Last Admin: 12/29/16 18:49 Dose: Not Given Digoxin (Lanoxin) 0.25 mg PO DAILY@1800 [facility] Last Admin: 12/29/16 18:49 Dose: Not Given Famotidine (Pepcid) 20 mg IVP Q12 [facility] Last Admin: 01/01/17 21:53 Dose: 20 mg Furosemide (Lasix) 20 mg PO BID [facility] Last Admin: 01/01/17 17:12 Dose: 20 mg Insulin Human Regular (Novolin R) 0 unit SC ACHS [facility] PRN Reason: Protocol Last Admin: 01/02/17 08:19 Dose: 1 unit Lisinopril (Zestril) 20 mg PO DAILY [facility] Last Admin: 01/01/17 09:22 Dose: 20 mg Rosuvastatin Calcium (Crestor) 20 mg PO HS [facility] Last Admin: 01/01/17 21:52 Dose: 20 mg - Labs Labs: 01/01/17 06:15 01/01/17 06:15 PT 12.2 SECONDS (9.7-12.2) 12/30/16 02:18 INR 1.1 12/30/16 02:18 APTT 27 SECONDS (21-34) 12/30/16 02:18
--- NOTE | 2017-01-02 16:57 | CP.PCM.PN ---
Subjective - Date & Time of Evaluation Date of Evaluation: 01/02/17 Time of Evaluation: 05:00 - Subjective Subjective: Patient was awake and alert. However confused, today was not following commands when I saw him. He is pending transfer to the floor later today. He is POD #3 of bilateral craniotomy and evacuation of bilateral subdural hematoma. Objective - Vital Signs/Intake and Output Vital Signs (last 24 hours): Temp Pulse Resp BP Pulse Ox 99.2 F 99 H 20 147/72 96 01/02/17 16:00 01/02/17 16:00 01/02/17 16:00 01/02/17 16:00 01/02/17 16:00 Intake and Output: 01/02/17 01/02/17 06:59 18:59 Intake Total 400 1090 Output Total 620 350 Balance -220 740 - Medications Medications: Current Medications Carvedilol (Coreg) 3.125 mg PO BID [facility] Last Admin: 12/29/16 18:49 Dose: Not Given Digoxin (Lanoxin) 0.25 mg PO DAILY@1800 [facility] Last Admin: 12/29/16 18:49 Dose: Not Given Famotidine (Pepcid) 20 mg IVP Q12 [facility] Last Admin: 01/02/17 10:37 Dose: 20 mg Furosemide (Lasix) 20 mg PO BID [facility] Last Admin: 01/02/17 10:41 Dose: 20 mg Insulin Human Regular (Novolin R) 0 unit SC ACHS [facility] PRN Reason: Protocol Last Admin: 01/02/17 16:51 Dose: 1 unit Lisinopril (Zestril) 20 mg PO DAILY [facility] Last Admin: 01/02/17 10:37 Dose: 20 mg Rosuvastatin Calcium (Crestor) 20 mg PO HS [facility] Last Admin: 01/01/17 21:52 Dose: 20 mg - Labs Labs: 01/01/17 06:15 01/01/17 06:15 PT 12.2 SECONDS (9.7-12.2) 12/30/16 02:18 INR 1.1 12/30/16 02:18 APTT 27 SECONDS (21-34) 12/30/16 02:18 - Constitutional Appears: Older Than Stated Age, Confused, Cachectic, Chronically Ill - Head Exam Head Exam: absent: ATRAUMATIC, NORMAL INSPECTION, NORMOCEPHALIC Additional comments: S/P bilateral craniotomy and evacuation of bilateral subdural hematoma. Sledge dry and intact - Respiratory Exam Respiratory Exam: Clear to Ausculation Bilateral, NORMAL BREATHING PATTERN - Cardiovascular Exam Cardiovascular Exam: REGULAR RHYTHM - GI/Abdominal Exam GI & Abdominal Exam: Soft, Normal Bowel Sounds. absent: Rigid, Tenderness - Neurological Exam Neurological Exam: Alert, Altered, Awake Neuro motor strength exam: Left Upper Extremity: 4, Right Upper Extremity: 4 - Psychiatric Exam Psychiatric exam: Depressed, Flat Affect - Skin Skin Exam: Pallor Assessment and Plan - Assessment and Plan (Free Text) Assessment: 76 year old male PMHx of Hypertension, Hypercholesterolemia, DM2 who was found in the lobby having ataxic gait Plan: Bilateral frontoparietal subdural hematomas left larger than right 01/02: POD 3 of bilateral craniotomy. Pending transfer to the medical floors today 01/01: The bilateral drains were removed. He had a CT today showingdecrease in the size of the subdural hematoma from before and decrease in the size of the mass effect. 12/31: Patient is S/P bilateral craniotomy and evacuation of bilateral subdural hematoma. Repeat CT for tomorrow Head CT: large bilateral frontoparietal subdural hematomas left larger than right. Left side is subacute to chronic and right-sided more chronic in appearance. Significant mass effect with compression of both cerebral hemispheres and mild [id number] midline shift of. Marked compression of the ventricles as well. Neurosurgery ~ Dr. Gill Bradycardia 01/02: HR remains in the 90s 01/01: Better, HR is 90s now. 12/31: HR is NSR 60s to 70s Nonsymptomatic Patient on TELE EKG showed sinus bradycardia with 1st degree AV block Home dose Coreg changed to 3.125mg PO BID Hx of HTN 12/31: Due to low HR the coreg and digoxin on hold at the moment. The BP is mostly 120 systolic range Lisinopril 20mg PO daily Crestor 20mg PO HS Lasix 20mg PO BID Hx of DM Accucheck ACHS Low dose RISS PPX SCDs VTE ppx c/i Pepcid 20mg PO BID
[2017-01-03] MEDS: (Novolin R) Insulin Human Regular 100 units/ml vial SC SCH ×4 (08:06→21:57)
[2017-01-03 08:21] LABS: BASO % 0.4 % (0.0-2.0); EOS # 0.1 K/uL (0.0-0.7); EOS % 0.5 % (0.0-4.0); HEMATOCRIT 38.3 % (35.0-51.0); LYMPH # 1.2 K/uL (1.0-4.3); LYMPH % 10.3 % (20.0-40.0); MEAN CELL VOLUME 91.2 fL (80.0-94.0); MEAN CORPUSCULAR HEMOGLOBIN 31.1 pg (27.0-31.0); MEAN CORPUSCULAR HGB CONC 34.1 g/dL (33.0-37.0); MEAN PLATELET VOLUME 9.4 fL (7.2-11.7); MONO # 1.7 K/uL (0.0-0.8); MONO % 15.2 % (0.0-10.0); RED CELL DISTRIBUTION WIDTH 13.9 % (11.5-14.5); WHITE BLOOD COUNT 11.2 K/uL (4.8-10.8)
[2017-01-03 08:30] LABS: CHLORIDE 89 mmol/L (98-107)
[2017-01-03 08:31] LABS: POTASSIUM 3.5 mmol/L (3.6-5.2); SODIUM 131 mmol/L (132-148)
[2017-01-03 08:33] LABS: AST/SGOT 34 U/L (17-59); BILIRUBIN,TOTAL 0.8 mg/dL (0.2-1.3); GFR AFRICAN-AMERICAN > 60
[2017-01-03 08:34] LABS: ALB/GLOB RATIO 0.9 (1.0-2.1); ALKALINE PHOSPHATASE 86 U/L (38-126); ALT/SGPT 32 U/L (21-72); BLOOD UREA NITROGEN 19 mg/dL (9-20); CALCIUM 8.1 mg/dl (8.6-10.4); CARBON DIOXIDE 30 mmol/L (22-30); GLUCOSE,RANDOM 159 mg/dL (75-110); TOTAL PROTEIN 6.5 g/dL (6.3-8.3)
[2017-01-03] MEDS ORDERED: Potassium Chloride 20 mEq/15 ml LIQ UD PO ONE (09:45)
--- NOTE | 2017-01-03 12:23 | CP.PCM.PN ---
<Mariah Barnard H - Last Filed: 01/03/17 12:20> Subjective - Date & Time of Evaluation Date of Evaluation: 01/03/17 Time of Evaluation: 08:50 - Subjective Subjective: PGY2 Medicine Note - Dr. Garzon's service: Patient seen and examined at bedside. Patient awake and alert. Patient just laughs when asked who the president is. Patient follows simple commands. Patient reports mild headache. Patient denies fever, chills, chest pain, SOB, abdominal pain, nausea, vomiting, difficulty eating, weakness, dysuria. Objective - Vital Signs/Intake and Output Vital Signs (last 24 hours): Temp Pulse Resp BP Pulse Ox 99.4 F 80 22 117/67 96 01/03/17 08:00 01/03/17 08:00 01/03/17 08:00 01/03/17 09:41 01/03/17 08:00 Intake and Output: 01/03/17 01/03/17 06:59 18:59 Intake Total 680 240 Output Total 615 260 Balance 65 -20 - Medications Medications: Current Medications Carvedilol (Coreg) 3.125 mg PO BID [facility] Last Admin: 12/29/16 18:49 Dose: Not Given Digoxin (Lanoxin) 0.25 mg PO DAILY@1800 [facility] Last Admin: 12/29/16 18:49 Dose: Not Given Docusate Sodium (Colace) 100 mg PO BID [facility] Last Admin: 01/03/17 09:41 Dose: 100 mg Famotidine (Pepcid) 20 mg PO BID [facility] Last Admin: 01/03/17 09:41 Dose: 20 mg Furosemide (Lasix) 20 mg PO BID [facility] Last Admin: 01/03/17 09:41 Dose: 20 mg Insulin Human Regular (Novolin R) 0 unit SC [facility] PRN Reason: Protocol Last Admin: 01/03/17 11:39 Dose: 1 unit Lisinopril (Zestril) 20 mg PO DAILY [facility] Last Admin: 01/03/17 09:41 Dose: 20 mg Rosuvastatin Calcium (Crestor) 20 mg PO HS [facility] Last Admin: 01/02/17 22:26 Dose: 20 mg - Labs Labs: 01/03/17 08:17 01/03/17 08:17 PT 12.2 SECONDS (9.7-12.2) 12/30/16 02:18 INR 1.1 12/30/16 02:18 APTT 27 SECONDS (21-34) 12/30/16 02:18 - Constitutional Appears: Non-toxic, No Acute Distress - Head Exam Head Exam: NORMAL INSPECTION - Eye Exam Eye Exam: EOMI - ENT Exam ENT Exam: Mucous Membranes Moist - Respiratory Exam Respiratory Exam: Clear to Ausculation Bilateral, NORMAL BREATHING PATTERN. absent: Rales, Rhonchi, Wheezes - Cardiovascular Exam Cardiovascular Exam: REGULAR RHYTHM, +S1, +S2. absent: Gallop, Rubs, Murmur - GI/Abdominal Exam GI & Abdominal Exam: Soft, Normal Bowel Sounds. absent: Tenderness - Extremities Exam Extremities Exam: Normal Capillary Refill. absent: Pedal Edema - Neurological Exam Neurological Exam: Alert, Awake - Psychiatric Exam Psychiatric exam: Normal Affect, Normal Mood - Skin Skin Exam: Normal Color, Warm Assessment and Plan - Assessment and Plan (Free Text) Assessment: 76 year old male PMHx of Hypertension, Hypercholesterolemia, DM2 who was found in the lobby having ataxic gait Plan: Bilateral frontoparietal subdural hematomas left larger than right 01/03: POD#4. Continue current management. Not oriented 01/02: POD 3 of bilateral craniotomy. Pending transfer to the medical floors today 01/01: The bilateral drains were removed. He had a CT today showing decrease in the size of the subdural hematoma from before and decrease in the size of the mass effect. /: Patient is S/P bilateral craniotomy and evacuation of bilateral subdural hematoma. Repeat CT for tomorrow Head CT: large bilateral frontoparietal subdural hematomas left larger than right. Left side is subacute to chronic and right-sided more chronic in appearance. Significant mass effect with compression of both cerebral hemispheres and mild vroz-[id number] midline shift of. Marked compression of the ventricles as well. Neurosurgery ~ Dr. Gill Bradycardia 01/03: Resolved. HR in the 90s 01/02: HR remains in the 90s 01/01: Better, HR is 90s now. 12/31: HR is NSR 60s to 70s Nonsymptomatic Patient on TELE EKG showed sinus bradycardia with 1st degree AV block Home dose Coreg changed to 3.125mg PO BID Hx of HTN 01/03: Controlled. 119/82 5/4: Due to low HR the coreg and digoxin on hold at the moment. The BP is mostly 120 systolic range Lisinopril 20mg PO daily Crestor 20mg PO HS Lasix 20mg PO BID Constipation Colace 100mg PO BID Hx of DM Accucheck ACHS Low dose RISS Crestor 20mg PO HS PPX SCDs VTE ppx c/i secondary to bleed in brain Pepcid 20mg PO BID <Michael Garzon H - Last Filed: 01/03/17 13:07> Objective - Vital Signs/Intake and Output Vital Signs (last 24 hours): Temp Pulse Resp BP Pulse Ox 99.4 F 80 22 117/67 96 01/03/17 08:00 01/03/17 08:00 01/03/17 08:00 01/03/17 09:41 01/03/17 08:00 Intake and Output: 01/03/17 01/03/17 06:59 18:59 Intake Total 680 240 Output Total 615 260 Balance 65 -20 - Medications Medications: Current Medications Carvedilol (Coreg) 3.125 mg PO BID [facility] Last Admin: 12/29/16 18:49 Dose: Not Given Digoxin (Lanoxin) 0.25 mg PO DAILY@1800 [facility] Last Admin: 12/29/16 18:49 Dose: Not Given Docusate Sodium (Colace) 100 mg PO BID [facility] Last Admin: 01/03/17 09:41 Dose: 100 mg Famotidine (Pepcid) 20 mg PO BID [facility] Last Admin: 01/03/17 09:41 Dose: 20 mg Furosemide (Lasix) 20 mg PO BID [facility] Last Admin: 01/03/17 09:41 Dose: 20 mg Insulin Human Regular (Novolin R) 0 unit SC [facility] PRN Reason: Protocol Last Admin: 01/03/17 11:39 Dose: 1 unit Lisinopril (Zestril) 20 mg PO DAILY [facility] Last Admin: 01/03/17 09:41 Dose: 20 mg Rosuvastatin Calcium (Crestor) 20 mg PO [facility] Last Admin: 01/02/17 22:26 Dose: 20 mg - Labs Labs: 01/03/17 08:17 01/03/17 08:17 PT 12.2 SECONDS (9.7-12.2) 12/30/16 02:18 INR 1.1 12/30/16 02:18 APTT 27 SECONDS (21-34) 12/30/16 02:18 Attending/Attestation - Attestation I have personally seen and examined this patient.: Yes I have fully participated in the care of the patient.: Yes I have reviewed all pertinent clinical information, including history, physical exam and plan: Yes Notes (Text): 01/03/17 13:05 Medical Attending: Patient was seen and examined by me. Like previous day he is awake, alert, verbal, answering some questions and following some commands. However does not know place or time. He is also not able to answer some simple questions as well. Not in any distress, however confused. He is pending going to the medical floors at some point. Michael Garzon
[2017-01-04 06:50] LABS: CHLORIDE 90 mmol/L (98-107); SODIUM 127 mmol/L (132-148)
[2017-01-04 06:52] LABS: GFR AFRICAN-AMERICAN > 60
[2017-01-04 06:53] LABS: ALB/GLOB RATIO 0.8 (1.0-2.1); ALKALINE PHOSPHATASE 109 U/L (38-126); AST/SGOT 43 U/L (17-59); BILIRUBIN,TOTAL 0.6 mg/dL (0.2-1.3); BLOOD UREA NITROGEN 20 mg/dL (9-20); CALCIUM 8.8 mg/dl (8.6-10.4); CARBON DIOXIDE 27 mmol/L (22-30); GLUCOSE,RANDOM 169 mg/dL (75-110); TOTAL PROTEIN 6.8 g/dL (6.3-8.3)
[2017-01-04 06:54] LABS: ALT/SGPT 44 U/L (21-72)
[2017-01-04 08:22] LABS: BASO % 0.2 % (0.0-2.0); EOS % 0.4 % (0.0-4.0); HEMATOCRIT 41.2 % (35.0-51.0); MEAN CELL VOLUME 90.7 fL (80.0-94.0); MEAN CORPUSCULAR HEMOGLOBIN 30.9 pg (27.0-31.0); MEAN PLATELET VOLUME 8.7 fL (7.2-11.7); MONO # 1.6 K/uL (0.0-0.8); MONO % 14.4 % (0.0-10.0); PLATELET COUNT 204 K/uL (130-400); RED CELL DISTRIBUTION WIDTH 14.1 % (11.5-14.5); WHITE BLOOD COUNT 10.9 K/uL (4.8-10.8)
[2017-01-04] MEDS: (Novolin R) Insulin Human Regular 100 units/ml vial SC SCH ×4 (08:25→21:37)
[2017-01-04 09:11] LABS: NEUTROPHIL 82 % (50-75); TOTAL CELLS COUNTED 100
--- NOTE | 2017-01-04 18:23 | CP.PCM.PN ---
<Noah Castle - Last Filed: 01/04/17 18:20> Subjective - Date & Time of Evaluation Date of Evaluation: 01/04/17 Time of Evaluation: 09:00 - Subjective Subjective: Dr. Castle PGY 1 Hospitalist Note Patient seen and evaluated at bedside in ICU. He is able to tell me his name and follow minimal commands. Otherwise, he giggles when asked other questions. A thorough review of systems cannot be obtained due to his mintal status. Per nursing, no adverse events over night. Objective - Vital Signs/Intake and Output Vital Signs (last 24 hours): Temp Pulse Resp BP Pulse Ox 99.7 F H 104 H 24 127/77 95 01/04/17 16:00 01/04/17 16:00 01/04/17 16:00 01/04/17 16:00 01/04/17 12:46 Intake and Output: 01/04/17 01/04/17 06:59 18:59 Intake Total 400 400 Output Total 1050 250 Balance -650 150 - Medications Medications: Current Medications Carvedilol (Coreg) 3.125 mg PO BID [facility] Last Admin: 12/29/16 18:49 Dose: Not Given Digoxin (Lanoxin) 0.25 mg PO DAILY@1800 [facility] Last Admin: 12/29/16 18:49 Dose: Not Given Docusate Sodium (Colace) 100 mg PO BID [facility] Last Admin: 01/04/17 10:00 Dose: 100 mg Famotidine (Pepcid) 20 mg PO BID [facility] Last Admin: 01/04/17 09:59 Dose: 20 mg Furosemide (Lasix) 20 mg PO BID [facility] Last Admin: 01/04/17 09:59 Dose: 20 mg Insulin Human Regular (Novolin R) [address] [facility] PRN Reason: Protocol Last Admin: 01/04/17 16:25 Dose: 1 unit Lisinopril (Zestril) 20 mg PO DAILY [facility] Last Admin: 01/04/17 10:00 Dose: 20 mg Rosuvastatin Calcium (Crestor) 20 mg PO HS [facility] Last Admin: 01/03/17 21:56 Dose: 20 mg - Labs Labs: 01/04/17 08:15 01/04/17 06:18 PT 12.2 SECONDS (9.7-12.2) 12/30/16 02:18 INR 1.1 12/30/16 02:18 APTT 27 SECONDS (21-34) 12/30/16 02:18 - Constitutional Appears: Non-toxic, No Acute Distress - Head Exam Head Exam: absent: ATRAUMATIC (surgical sutures in place ) - Eye Exam Eye Exam: EOMI, Normal appearance, PERRL Pupil Exam: NORMAL ACCOMODATION, PERRL - ENT Exam ENT Exam: Mucous Membranes Dry. absent: Normal Oropharynx (poor dentition) - Neck Exam Neck Exam: absent: Tenderness - Respiratory Exam Respiratory Exam: Clear to Ausculation Bilateral, NORMAL BREATHING PATTERN. absent: Rales, Rhonchi, Wheezes - Cardiovascular Exam Cardiovascular Exam: REGULAR RHYTHM, +S1, +S2. absent: Gallop, Rubs, Murmur - GI/Abdominal Exam GI & Abdominal Exam: Soft. absent: Tenderness - Extremities Exam Extremities Exam: absent: Normal Inspection (left leg difficult to extend) - Neurological Exam Neurological Exam: Altered, Awake Neuro motor strength exam: Left Upper Extremity: 4, Right Upper Extremity: 4, Left Lower Extremity: 3, Right Lower Extremity: 3 - Psychiatric Exam Psychiatric exam: absent: Normal Affect, Normal Mood - Skin Skin Exam: Dry, Intact, Normal Color, Warm Assessment and Plan - Assessment and Plan (Free Text) Assessment: 76 year old male PMHx of Hypertension, Hypercholesterolemia, DM2 who was found in the lobby having ataxic gait Plan: Bilateral frontoparietal subdural hematomas left larger than right 01/04: POD 5, Continue current managment, not allert and ortiented 01/03: POD#4. Continue current management. Not oriented 01/02: POD 3 of bilateral craniotomy. Pending transfer to the medical floors today 01/01: The bilateral drains were removed. He had a CT today showing decrease in the size of the subdural hematoma from before and decrease in the size of the mass effect. /: Patient is S/P bilateral craniotomy and evacuation of bilateral subdural hematoma. Repeat CT for tomorrow Head CT: large bilateral frontoparietal subdural hematomas left larger than right. Left side is subacute to chronic and right-sided more chronic in appearance. Significant mass effect with compression of both cerebral hemispheres and mild [id number] midline shift of. Marked compression of the ventricles as well. Neurosurgery ~ Dr. Gill Bradycardia 01/04: HR in 90's 01/03: Resolved. HR in the 90s 01/02: HR remains in the 90s 01/01: Better, HR is 90s now. 12/31: HR is NSR 60s to 70s Nonsymptomatic Patient on TELE EKG showed sinus bradycardia with 1st degree AV block Home dose Coreg changed to 3.125mg PO BID F/U Dig level Hx of HTN 01/04: Controlled 141/79 01/03: Controlled. 119/82 12/31: Due to low HR the coreg and digoxin on hold at the moment. The BP is mostly 120 systolic range Lisinopril 20mg PO daily Crestor 20mg PO HS Lasix 20mg PO BID Constipation Colace 100mg PO BID Hx of DM Accucheck ACHS Low dose RISS Crestor 20mg PO HS Electrolyte imbalance Nephrology consulted help appreciated Sodium 127 this AM F/U urine electrolytes, creatinine and osms F/U serum osm PPX SCDs VTE ppx c/i secondary to bleed in brain Pepcid 20mg PO BID <Abimbola Antonio V - Last Filed: 01/05/17 07:32> Objective - Vital Signs/Intake and Output Vital Signs (last 24 hours): Temp Pulse Resp BP Pulse Ox 99.2 F 92 H 28 H 94/54 L 95 01/05/17 04:00 01/05/17 04:00 01/05/17 04:00 01/05/17 04:00 01/04/17 12:46 Intake and Output: 01/05/17 01/05/17 06:59 18:59 Intake Total 965 Output Total 985 Balance -20 - Medications Medications: Current Medications Docusate Sodium (Colace) 100 mg PO BID [facility] Last Admin: 01/04/17 18:36 Dose: 100 mg Famotidine (Pepcid) 20 mg PO BID [facility] Last Admin: 01/04/17 18:36 Dose: 20 mg Furosemide (Lasix) 20 mg PO BID [facility] Last Admin: 01/04/17 18:39 Dose: 20 mg Sodium Chloride (Sodium Chloride 0.9%) 1,000 mls @ 75 mls/hr IV .[id number] [facility] Last Admin: 01/05/17 00:02 Dose: 75 mls/hr Insulin Human Regular (Novolin R) 0 unit SC [facility] PRN Reason: Protocol Last Admin: 01/04/17 21:37 Dose: Not Given Rosuvastatin Calcium (Crestor) 20 mg PO HS [facility] Last Admin: 01/04/17 22:03 Dose: 20 mg - Labs Labs: 01/05/17 06:04 01/05/17 06:04 PT 12.2 SECONDS (9.7-12.2) 12/30/16 02:18 INR 1.1 12/30/16 02:18 APTT 27 SECONDS (21-34) 12/30/16 02:18 Attending/Attestation - Attestation I have personally seen and examined this patient.: Yes I have fully participated in the care of the patient.: Yes I have reviewed all pertinent clinical information, including history, physical exam and plan: Yes Notes (Text): This is a late computer entry for 01/04/17. Patient seen, examined and case discussed with day-time resident. Patient seen approximately 12pm on 01/04/17 during rounds. Patient is awake, alert, clinically, appears dry, has surgical scars with sony over his scalp. No observed purulent. Patient does talk but minimally, patient retracts to pain, movements extremities bilaterally. No family present at bedside. Nephrology consulted given hyponatremia. Lasix held. Reconsult: PT/OT 1) Bilateral frontoparietal subdural hematoma * Consult: Neurosurgery (Dr. Gill) on board help appreciated * Consult: Neurology (Dr. Deshpande) on board help appreciated * Per 01/02-->neurosurgery note-->ok to mobilize and transfer to the floor * CT Head (01/01/17): status post insertion of extra-axial 2 bilateral frontal drainage catheters since prvious exam. Interval decrease in sixure of bilateral subdural hematomas, interval decrease in the size of the mass effect, effacement of the sulci, and left to right midline shift * Drains removed on 01/01/17. * Cytology: negative for malignant cells bilateral; granulation tissue and organizing blood clot * CT head (12/30/16): interval mild worsening of the left subdural hematoma since previous exam, mild worsening of the mass effect on the left brain and left to right midline shift, effacement of the basilar Systane , subfalcine and transtentorial herniation, left side should be considered 2) Bradycardia * Coreg and digoxin held due to blood pressure parameters * Heart rate in 90s * Held Lasix secondary to dehydration * EKG: sinus bradycardia and possible LBBB? 3) Hypertension; history * continue to monitor vital signs * Coreg and digoxin with associated blood pressure parameters * Lasix held secondary to dehydration and clinically appearing dry * Lisinopril 20mg PO daily 4) Constipation * Colace 100mg PO BID 5) Diabetes type 2 * [id number]: 6.8 * Low dose insulin sliding scale subq * Accuchecks * Cresto 20mg POqHS 6) Hyponatremia * held Lasix * Ordered for serum osmolarity, urine osmolarity, urine lytes * Consult Nephrology (Dr. Dagmar Read) on board 7) PPX * SCDs * VTE ppx c/i secondary to bleed in brain * Pepcid 20mg PO BID * Reconsult PT/OT for gait deconditoning * Consult: speech and swallow
[2017-01-04] MEDS ORDERED: Sodium Chloride 0.9% 1,000 ML IV SCH (23:15)
--- NOTE | 2017-01-04 23:27 | CP.PCM.CON ---
Past Patient History - Past Medical History & Family History Past Medical History?: Yes - Past Social History Smoking Status: Never Smoked Alcohol: None Drugs: Denies - CARDIAC Hx Hypercholesterolemia: Yes Hx Hypertension: Yes - ENDOCRINE/METABOLIC Hx Diabetes Mellitus Type 2: Yes - MUSCULOSKELETAL/RHEUMATOLOGICAL Hx Falls: Yes (12-27-2016) - PSYCHIATRIC Hx Substance Use: No - SURGICAL HISTORY Hx Coronary Stent: Yes Other/Comment: prostate sx in 1981 - ANESTHESIA Hx Anesthesia: Yes Hx Anesthesia Reactions: No Meds Allergies/Adverse Reactions: Allergies Allergy/AdvReac Type Severity Reaction Status Date / Time No Known Allergies Allergy Verified 12/29/16 12:23 - Medications Medications: Current Medications Carvedilol (Coreg) 3.125 mg PO BID [facility] Last Admin: 12/29/16 18:49 Dose: Not Given Digoxin (Lanoxin) 0.25 mg PO DAILY@1800 [facility] Last Admin: 12/29/16 18:49 Dose: Not Given Docusate Sodium (Colace) 100 mg PO BID [facility] Last Admin: 01/04/17 18:36 Dose: 100 mg Famotidine (Pepcid) 20 mg PO BID [facility] Last Admin: 01/04/17 18:36 Dose: 20 mg Furosemide (Lasix) 20 mg PO BID [facility] Last Admin: 01/04/17 18:39 Dose: 20 mg Sodium Chloride (Sodium Chloride 0.9%) 1,000 mls @ 75 mls/hr IV .[id number] [facility] Insulin Human Regular (Novolin R) 0 unit SC [facility]S [facility] PRN Reason: Protocol Last Admin: 01/04/17 21:37 Dose: Not Given Lisinopril (Zestril) 20 mg PO DAILY [facility] Last Admin: 01/04/17 10:00 Dose: 20 mg Rosuvastatin Calcium (Crestor) 20 mg PO HS [facility] Last Admin: 01/04/17 22:03 Dose: 20 mg Results - Vital Signs Recent Vital Signs: Last Vital Signs Temp 99.6 F 01/04/17 20:00 Pulse 110 H 01/04/17 20:00 Resp 24 01/04/17 20:00 BP 117/81 01/04/17 20:00 Pulse Ox 95 01/04/17 12:46 - Labs Result Diagrams: 01/04/17 08:15 01/04/17 06:18 Labs: Laboratory Results - last 24 hr 01/04/17 01/04/17 01/04/17 06:18 07:36 08:15 WBC 10.9 H RBC 4.54 Hgb 14.0 Hct 41.2 MCV 90.7 MCH 30.9 MCHC 34.0 RDW 14.1 Plt Count 204 MPV 8.7 Neut % (Auto) 76.0 H Lymph % (Auto) 9.[address] [place] % (Auto) 14.4 H Eos % (Auto) 0.4 Baso % (Auto) 0.2 Neut # 8.3 H Lymph # 1.0 [place] # 1.6 H Eos # 0.0 Baso # 0.0 Neutrophils % (Manual) 82 H Lymphocytes % (Manual) 7 L Monocytes % (Manual) 11 H Platelet Estimate Normal RBC Morphology Normal Sodium 127 L Potassium 4.0 Chloride 90 L Carbon Dioxide 27 Anion Gap 13 BUN 20 Creatinine 0.8 Est GFR ( Amer) > 60 Est GFR (Non-Af Amer) > 60 POC Glucose (mg/dL) 169 H Random Glucose 169 H Serum Osmolality Calcium 8.8 Magnesium 2.0 Total Bilirubin 0.6 AST 43 ALT 44 Alkaline Phosphatase 109 Total Protein 6.8 Albumin 3.1 L Globulin 3.7 Albumin/Globulin Ratio 0.8 L Urine Osmolality Ur Random Sodium Digoxin 01/04/17 01/04/17 01/04/17 08:15 09:28 12:01 WBC RBC Hgb Hct MCV MCH MCHC RDW Plt Count MPV Neut % (Auto) Lymph % (Auto) [place] % (Auto) Eos % (Auto) Baso % (Auto) Neut # Lymph # [place] # Eos # Baso # Neutrophils % (Manual) Lymphocytes % (Manual) Monocytes % (Manual) Platelet Estimate RBC Morphology Sodium Potassium Chloride Carbon Dioxide Anion Gap BUN Creatinine Est GFR ( Amer) Est GFR (Non-Af Amer) POC Glucose (mg/dL) 194 H Random Glucose Serum Osmolality 282 Calcium Magnesium Total Bilirubin AST ALT Alkaline Phosphatase Total Protein Albumin Globulin Albumin/Globulin Ratio Urine Osmolality 691 Ur Random Sodium 51 Digoxin 01/04/17 01/04/17 01/04/17 14:21 14:25 16:13 WBC RBC Hgb Hct MCV MCH MCHC RDW Plt Count MPV Neut % (Auto) Lymph % (Auto) [place] % (Auto) Eos % (Auto) Baso % (Auto) Neut # Lymph # [place] # Eos # Baso # Neutrophils % (Manual) Lymphocytes % (Manual) Monocytes % (Manual) Platelet Estimate RBC Morphology Sodium Potassium Chloride Carbon Dioxide Anion Gap BUN Creatinine Est GFR ( Amer) Est GFR (Non-Af Amer) POC Glucose (mg/dL) 177 H Random Glucose Serum Osmolality 281 Calcium Magnesium Total Bilirubin AST ALT Alkaline Phosphatase Total Protein Albumin Globulin Albumin/Globulin Ratio Urine Osmolality 736 Ur Random Sodium 40 Digoxin 01/04/17 01/04/17 16:16 21:12 WBC RBC Hgb Hct MCV MCH MCHC RDW Plt Count MPV Neut % (Auto) Lymph % (Auto) [place] % (Auto) Eos % (Auto) Baso % (Auto) Neut # Lymph # [place] # Eos # Baso # Neutrophils % (Manual) Lymphocytes % (Manual) Monocytes % (Manual) Platelet Estimate RBC Morphology Sodium Potassium Chloride Carbon Dioxide Anion Gap BUN Creatinine Est GFR ( Amer) Est GFR (Non-Af Amer) POC Glucose (mg/dL) 229 H Random Glucose Serum Osmolality Calcium Magnesium Total Bilirubin AST ALT Alkaline Phosphatase Total Protein Albumin Globulin Albumin/Globulin Ratio Urine Osmolality Ur Random Sodium Digoxin < 0.4 L
[2017-01-05 06:12] LABS: HEMATOCRIT 38.7 % (35.0-51.0); MEAN CELL VOLUME 91.7 fL (80.0-94.0); MEAN CORPUSCULAR HEMOGLOBIN 30.7 pg (27.0-31.0); MEAN CORPUSCULAR HGB CONC 33.5 g/dL (33.0-37.0); MEAN PLATELET VOLUME 9.3 fL (7.2-11.7); RED CELL DISTRIBUTION WIDTH 14.3 % (11.5-14.5)
[2017-01-05 06:44] LABS: CHLORIDE 91 mmol/L (98-107)
[2017-01-05 06:45] LABS: POTASSIUM 3.8 mmol/L (3.6-5.2); SODIUM 130 mmol/L (132-148)
[2017-01-05 06:47] LABS: ALB/GLOB RATIO 0.8 (1.0-2.1); ALKALINE PHOSPHATASE 110 U/L (38-126); AST/SGOT 39 U/L (17-59); BILIRUBIN,TOTAL 0.8 mg/dL (0.2-1.3); BLOOD UREA NITROGEN 24 mg/dL (9-20); CARBON DIOXIDE 29 mmol/L (22-30); GFR AFRICAN-AMERICAN > 60; TOTAL PROTEIN 6.8 g/dL (6.3-8.3)
[2017-01-05 06:48] LABS: ALT/SGPT 42 U/L (21-72); CALCIUM 8.5 mg/dl (8.6-10.4); GLUCOSE,RANDOM 163 mg/dL (75-110); PHOSPHOROUS 4.8 mg/dL (2.5-4.5); URIC ACID 5.8 mg/dL (3.5-8.5)
--- NOTE | 2017-01-05 07:27 | CP.PCM.PN ---
<Noah Castle - Last Filed: 01/05/17 18:21> Subjective - Date & Time of Evaluation Date of Evaluation: 01/05/17 Time of Evaluation: 07:15 - Subjective Subjective: Dr. Castle PGY 1 Hospitalist Note Patient seen and evaluated at bedside in the ICU. He is able to give me his name and location however not year or president. This is much more improved than yesterday. He still only laughs when asking other questions. He is able to follow some commands. He does wince when extending right arm and has pain in right shoulder. Per nurse, patient had headache over night. No other adverse events reported. Objective - Vital Signs/Intake and Output Vital Signs (last 24 hours): Temp Pulse Resp BP Pulse Ox 99.2 F 92 H 28 H 94/54 L 95 01/05/17 04:00 01/05/17 04:00 01/05/17 04:00 01/05/17 04:00 01/04/17 12:46 Intake and Output: 01/05/17 01/05/17 06:59 18:59 Intake Total 965 Output Total 985 Balance -20 - Medications Medications: Current Medications Docusate Sodium (Colace) 100 mg PO BID [facility] Last Admin: 01/04/17 18:36 Dose: 100 mg Famotidine (Pepcid) 20 mg PO BID [facility] Last Admin: 01/04/17 18:36 Dose: 20 mg Furosemide (Lasix) 20 mg PO BID [facility] Last Admin: 01/04/17 18:39 Dose: 20 mg Sodium Chloride (Sodium Chloride 0.9%) 1,000 mls @ 75 mls/hr IV .[id number] [facility] Last Admin: 01/05/17 00:02 Dose: 75 mls/hr Insulin Human Regular (Novolin R) 0 unit SC ACHS [facility] PRN Reason: Protocol Last Admin: 01/04/17 21:37 Dose: Not Given Rosuvastatin Calcium (Crestor) 20 mg PO HS [facility] Last Admin: 01/04/17 22:03 Dose: 20 mg - Labs Labs: 01/05/17 06:04 01/05/17 06:04 PT 12.2 SECONDS (9.7-12.2) 12/30/16 02:18 INR 1.1 12/30/16 02:18 APTT 27 SECONDS (21-34) 12/30/16 02:18 - Constitutional Appears: Non-toxic, No Acute Distress - Head Exam Head Exam: absent: ATRAUMATIC (sutures in place) - Eye Exam Eye Exam: PERRL Pupil Exam: NORMAL ACCOMODATION, PERRL - ENT Exam ENT Exam: Mucous Membranes Moist. absent: Normal Oropharynx (poor dentition) - Neck Exam Neck Exam: Normal Inspection - Respiratory Exam Respiratory Exam: Clear to Ausculation Bilateral, NORMAL BREATHING PATTERN. absent: Rales, Rhonchi, Wheezes - Cardiovascular Exam Cardiovascular Exam: REGULAR RHYTHM, +S1, +S2. absent: Gallop, Rubs, Murmur - GI/Abdominal Exam GI & Abdominal Exam: Soft, Normal Bowel Sounds. absent: Distended, Firm, Guarding, Tenderness - Rectal Exam Rectal Exam: Deferred - Extremities Exam Extremities Exam: Normal Capillary Refill. absent: Normal Inspection ( difficulty extending right arm), Pedal Edema, Tenderness - Back Exam Back Exam: NORMAL INSPECTION. absent: rash noted, tenderness - Neurological Exam Neurological Exam: Alert, Awake, CN II-XII Intact. absent: Oriented x3 - Psychiatric Exam Psychiatric exam: Normal Affect, Normal Mood - Skin Skin Exam: Dry, Intact, Normal Color, Warm Assessment and Plan - Assessment and Plan (Free Text) Assessment: 76 year old male PMHx of Hypertension, Hypercholesterolemia, DM2 who was found in the lobby having ataxic gait Plan: Bilateral frontoparietal subdural hematomas left larger than right POD #6 * Consult: Neurosurgery (Dr. Gill) on board help appreciated * Consult: Neurology (Dr. Deshpande) on board help appreciated * Per 01/02-->neurosurgery note-->ok to mobilize and transfer to the floor * CT Head (01/01/17): status post insertion of extra-axial 2 bilateral frontal drainage catheters since prvious exam. Interval decrease in sixure of bilateral subdural hematomas, interval decrease in the size of the mass effect, effacement of the sulci, and left to right midline shift * Drains removed on 01/01/17. * Cytology: negative for malignant cells bilateral; granulation tissue and organizing blood clot * CT head (12/30/16): interval mild worsening of the left subdural hematoma since previous exam, mild worsening of the mass effect on the left brain and left to right midline shift, effacement of the basilar Systane , subfalcine and transtentorial herniation, left side should be considered Bradycardia * Coreg and digoxin held due to blood pressure parameters * Heart rate in 90s * Held Lasix secondary to dehydration * EKG: sinus bradycardia and possible LBBB * Dig level low Hx of HTN * continue to monitor vital signs * Coreg and digoxin (held) with associated blood pressure parameters * Lasix held secondary to dehydration and clinically appearing dry * Lisinopril 20mg PO daily Constipation * Colace 100mg PO BID Hx of DM * [id number]: 6.8 * Low dose insulin sliding scale subq * Accuchecks * Crestor 20mg POqHS Electrolyte imbalance * Nephrology consulted help appreciated * Sodium 130 this AM * urine NA 51, Urine OSM 691, Urine Microalbumin 71. * Hold lasix and contiue IVF@75mls * replenish as needed PPX * SCDs * VTE ppx c/i secondary to bleed in brain * Pepcid 20mg PO BID * Reconsult PT/OT for gait deconditoning * Consult: speech and swallow Assessment and plan discussed with attending physician. <Abimbola Antonio V - Last Filed: 04/07/17 23:56> Objective - Vital Signs/Intake and Output Vital Signs (last 24 hours): Temp Pulse Resp BP Pulse Ox 98.0 F 108 H 20 130/75 97 01/13/17 15:00 01/13/17 15:00 01/13/17 15:00 01/13/17 15:00 01/13/17 15:00 - Labs Labs: 01/13/17 07:31 01/13/17 07:31 PT 12.2 SECONDS (9.7-12.2) 12/30/16 02:18 INR 1.1 12/30/16 02:18 APTT 27 SECONDS (21-34) 12/30/16 02:18 Attending/Attestation - Attestation I have personally seen and examined this patient.: Yes I have fully participated in the care of the patient.: Yes I have reviewed all pertinent clinical information, including history, physical exam and plan: Yes
[2017-01-05] MEDS: (Novolin R) Insulin Human Regular 100 units/ml vial SC SCH ×4 (08:17→21:58)
--- NOTE | 2017-01-05 08:23 | CON ---
DATE: 01/04/2017 A 76-year-old male with past medical history of hypertension, hyperlipidemia and diabetes presented after being found to have ataxic gait, found to have bilateral subdural hematomas, status post surgical evacuation via bilateral craniotomies, now postop day #5. Nephrology service being consulted for progressively worsening hyponatremia. The patient unable to give any history. The patient not verbal, although per reports from other providers and nursing staff, the patient has been verbal, although has not been oriented to place or time. Nursing note also frequently mentioning that patient only consuming a fraction of his meals. The patient is not able to eat on his own, but needs to be fed. Further review of systems unavailable as patient not able to verbalize at all currently. PAST MEDICAL HISTORY: As above. SOCIAL HISTORY: Previous smoker, not since many years. FAMILY HISTORY: Mother with diabetes, father with unknown cancer. PHYSICAL EXAMINATION: VITAL SIGNS: This evening blood pressure 117/81, heart rate 110, respirations 24, temperature 99.6. GENERAL: The patient confused, in mild distress, nontoxic, nonverbal. HEENT: Bilateral surgical sutures going from front to back. No conjunctival injection. No scleral icterus. Moist mucous membranes. NECK: Normal inspection. RESPIRATORY: Clear to auscultation bilaterally. No rales, no rhonchi, no wheezes. CARDIOVASCULAR: Tachycardic, regular rhythm. No murmurs, no gallops, no rubs. GASTROINTESTINAL: Abdomen soft, nontender, nondistended. EXTREMITIES: No leg edema. Normal capillary refill. Positive pedal pulses. NEUROLOGIC: Altered mental status, oriented only to name. PSYCHIATRIC: Normal affect, normal mood. SKIN: Dry, warm. Normal color. LABORATORY DATA: This morning, WBC 10.9, hemoglobin 14, hematocrit 41.2, platelets 204. Chemistry panel: Sodium 127, potassium 4.0, chloride 90, bicarb 27, BUN 20, creatinine 0.8, glucose 169, albumin 3.1. Urine studies this morning: Urine osmolality 691. Urine sodium 51. This afternoon, urine osmolality 736. Urine sodium 40. Chest x-ray from 12/31/2016: No significant vascular congestion. ASSESSMENT: 1. Hypotonic hyponatremia with elevated urine osmolality points toward either volume depletion or syndrome of inappropriate antidiuretic hormone. The patient has been on diuretics since admission with Lasix 20 mg p.o. b.i.d. and despite being on Lasix, urine sodium is not as high as would be expected with diuretics. Also, the patient appears lethargic and mildly tachycardic, low normal blood pressure, all of which seem to favor volume depletion as a cause of hyponatremia. Plan: We will hold Lasix. We will start volume repletion gently with normal saline at 75 mL per hour. Repeat urine sodium and osmolality , check uric acid level (is typically low with syndrome of inappropriate antidiuretic hormone). 2. Hypertension. The patient was on Coreg, lisinopril and Lasix at home. Coreg being held due to risk for heart block. As patient has been having low normal blood pressures, should hold lisinopril as well temporarily. 3. Bilateral subdural hematomas, status post craniotomy and evacuation. Possibility of cerebral salt wasting with low blood pressures also suggestive of the same. However, would expect significantly higher urine sodium levels, particularly as patient is on diuretics. Should recheck urine sodium and urine osmolality tomorrow after the effect of Lasix has worn off and before patient has received a good amount of volume replenishment. If this is cerebral salt wasting, then urine sodium should be elevated. Marck Guzman MD cc: [id number] TT: 01/05/2017 08:23:03 Confirmation # [id number] Dictation # [id number] [id number]
--- NOTE | 2017-01-05 09:38 | PN ---
DATE: 01/05/2017 The patient is lying on the bed, in no acute distress. Denies having any headache or dizziness. Margareth ses noted patient to have twitching of the right arm yesterday. Today, he had no further twitching. PHYSICAL EXAMINATION: VITAL SIGNS: His blood pressure is 94/53, heart rate is 79 per minute, breathing at a rate of 16 per minute, temperature is 98.9 degrees Fahrenheit. HEENT: Head is normocephalic, atraumatic. NECK: Supple. There are no carotid bruits. LUNGS: Clear. CARDIOVASCULAR: S1, S2 audible. No murmurs. ABDOMEN: Soft and nontender. Bowel sounds are present. NEUROLOGIC EXAMINATION: MENTAL STATUS: The patient is awake, alert. He knows he is in the hospital. He does not know the y ear or the month. He follows all simple commands. CRANIAL NERVES: Pupils are 2 mm, minimally reactive to light. Visual garnica are full. Extraocular movements are intact. There is no facial asymmetry. MOTOR: Tone is normal. Power in the upper extremities 4/5. Power in the lower extremities 2-3/5. Reflexes 1+ and symmetrical with absent ankle jerk. Plantars downgoing bilaterally. CEREBELLAR: Qxelje-if-[id number] shows no dysmetria. GAIT: Deferred at the moment. IMPRESSION: 1. Altered mental status, secondary to underlying dementia. 2. Subdural hematoma, status post craniotomy. 3. Focal twitching of the right upper extremity. Rule out seizures. RECOMMENDATIONS: 1. The patient's focal twitching may have been secondary to hyponatremia. The patient's sodium was 127 yesterday. Today, it is 130. 2. The patient had vitamin B12 levels done, which is 366, within normal limits. 3. The patient to have an electroencephalogram. 4. The patient to be started on physical therapy to regain strength and for gait and balance. 5. Please continue other treatment and supportive care. Thank you for the opportunity to participate in the care of this patient. Susy Deshpande MD cc: [id number] TT: 01/05/2017 09:37:37 Confirmation # [id number] Dictation # [id number]
[2017-01-05 14:42] LABS: CREATININE, RANDOM URINE 116.4 mg/dL
--- NOTE | 2017-01-05 16:55 | RAD ---
PROCEDURE: Radiographs of the Right Shoulder HISTORY: shoulder pain COMPARISON: No prior. FINDINGS: BONES: Normal. No fracture. JOINTS: Acromioclavicular joint and glenohumeral osteoarthrosis SOFT TISSUES: Normal. OTHER FINDINGS: None. IMPRESSION: Osteoarthrosis. No fracture or dislocation.
[2017-01-05] MEDS: Sodium Chloride 0.9% 1,000 ML IV SCH (20:50)
--- NOTE | 2017-01-05 21:29 | PN ---
DATE: 01/05/2017 NEPHROLOGY FOLLOWUP NOTE A 76-year-old male with past medical history of hypertension, hyperlipidemia, diabetes, admitted with bilateral subdural hematomas, now status post surgical evacuation via craniotomies. Nephrology serv ice following for hyponatremia. The patient more alert today. Denies any complaints, but not verbalizing. Denies any shortness of b reath or any pain. VITAL SIGNS: This morning: Blood pressure 94/53, heart rate 79, respirations 19, temperature 98.9 GENERAL: No distress. Not consistently following commands. HEENT: Moist mucous membranes. Non-icteric. CHEST: Clear to auscultation bilaterally. No rales. No rhonchi. No wheezes. HEART: S1, S2 normal. No murmurs. No gallops. No rubs. ABDOMEN: Soft, nontender, nondistended. GENITOURINARY: No blood or distention. EXTREMITIES: No leg edema. Good capillary refill. LABORATORY DATA: Today, CBC: WBC 12.0, hemoglobin 13.0, hematocrit 38.7, platelets 206. Chemistry: Sodium 130, potassium 3.8, chloride 91, bicarbonate 29, BUN 24, creatinine 1.0. Glucose 163. Uric acid 5.8. Calcium 8.5, albumin 3.0. Urine chemistry is drawn this afternoon. Urine osmolality 719 . Urine sodium 46. Urine microalbumin 71. Urine creatinine 116. ASSESSMENT: hyponatremia . Continues to have markedly elevated urine osmolality in the setting of low bloo d pressure. Would still have to favor volume depletion as cause of hyponatremia; however, although c erebral salt wasting is still in the differential. Syndrome of inappropriate antidiuretic hormone is likely as giving isotonic saline which has an osmolality of about 300 per liter to a patient w ith a urine osmolality that is almost double that, should have caused a decrease in serum sodium if t his were syndrome of inappropriate antidiuretic hormone, as high level of 88 would have caused retent ion with a free water and excretion of the sodium in the saline load. PLAN: 1. We will continue IV fluids with NS increasing to 100 mL per hour. We will repeat check urine inge ctrolytes and osmolality tomorrow. 2. Hypotension. Blood pressure meds currently being held. Continue to hold. 3. Bilateral subdural hematomas, status post craniotomy and evacuation. Again, there is a possibili ty of this causing cerebral salt wasting. If after adequate volume repletion, urine osmolality falls , then cerebral salt wasting is likely; this condition is generally self-limited, and can be treated with salt tablets in the interim. Marck Guzman MD cc: [id number] TT: 01/05/2017 21:28:42 Confirmation # [id number] Dictation # [id number] tn
[2017-01-06] MEDS: Sodium Chloride 0.9% 1,000 ML IV SCH ×2 (05:57→17:42)
[2017-01-06 08:23] LABS: BASO % 0.5 % (0.0-2.0); EOS # 0.1 K/uL (0.0-0.7); EOS % 0.9 % (0.0-4.0); LYMPH # 1.1 K/uL (1.0-4.3); LYMPH % 11.4 % (20.0-40.0); MEAN CELL VOLUME 92.2 fL (80.0-94.0); MEAN CORPUSCULAR HEMOGLOBIN 30.9 pg (27.0-31.0); MEAN CORPUSCULAR HGB CONC 33.5 g/dL (33.0-37.0); MEAN PLATELET VOLUME 8.9 fL (7.2-11.7); MONO # 1.3 K/uL (0.0-0.8); MONO % 13.2 % (0.0-10.0); RED CELL DISTRIBUTION WIDTH 14.4 % (11.5-14.5); WHITE BLOOD COUNT 9.5 K/uL (4.8-10.8)
[2017-01-06 09:10] LABS: CHLORIDE 95 mmol/L (98-107); POTASSIUM 3.9 mmol/L (3.6-5.2); SODIUM 131 mmol/L (132-148)
[2017-01-06 09:12] LABS: ALB/GLOB RATIO 0.9 (1.0-2.1); ALKALINE PHOSPHATASE 106 U/L (38-126); AST/SGOT 38 U/L (17-59); BILIRUBIN,TOTAL 0.8 mg/dL (0.2-1.3); BLOOD UREA NITROGEN 20 mg/dL (9-20); CARBON DIOXIDE 29 mmol/L (22-30); GFR AFRICAN-AMERICAN > 60; TOTAL PROTEIN 6.3 g/dL (6.3-8.3)
[2017-01-06 09:13] LABS: ALT/SGPT 34 U/L (21-72); CALCIUM 8.3 mg/dl (8.6-10.4); GLUCOSE,RANDOM 160 mg/dL (75-110); MAGNESIUM 2.3 mg/dL (1.6-2.3)
[2017-01-06] MEDS: (Novolin R) Insulin Human Regular 100 units/ml vial SC SCH ×5 (10:42→21:56)
--- NOTE | 2017-01-06 13:20 | PN ---
DATE: 01/06/2017 The patient is lying on the bed, in no acute distress. Complains of mild headache. Denies having an y dizziness. PHYSICAL EXAMINATION: VITAL SIGNS: His blood pressure is 133/77, heart rate is 91 per minute, breathing at a rate of 16 pe r minute, temperature is 98.2 degrees Fahrenheit. HEENT: Head is normocephalic, atraumatic. NECK: Supple. There are no carotid bruits. LUNGS: Clear. CARDIOVASCULAR: S1, S2 audible. No murmurs. ABDOMEN: Soft, nontender, bowel sounds present. NEUROLOGIC EXAMINATION: MENTAL STATUS: The patient is awake, alert, oriented to place. He follows all simple commands. CRANIAL NERVE: Pupils 2 mm, minimally reactive to light. Visual garnica are full. Extraocular movem ents are intact. There is no facial asymmetry. Tongue is midline. MOTOR: Tone is normal. Power in the upper extremity 4/5. Power in the lower extremity 2-3/5. Refl exes 1+ and symmetrical with absent ankle jerks. Plantars downgoing bilaterally. Nylcyd-ph-hdsh irais ws no dysmetria. IMPRESSION: 1. Dementia. 2. Subdural hematoma, status post craniotomy. 3. Status post focal twitching of the right upper extremity. RECOMMENDATIONS: 1. The patient had no further twitching movements or shaking of the shoulder. His sodium is 131. 2. The patient to have an electroencephalogram. 3. The patient to have physical therapy for gait imbalance. 4. Please continue other treatment and supportive care. Thank you for the opportunity to participate in the care of this patient. Susy Deshpande MD cc: [id number] TT: 01/06/2017 13:19:56 Confirmation # [id number] Dictation # [id number] tn
--- NOTE | 2017-01-06 14:32 | CP.PCM.PN ---
<Noah Castle - Last Filed: 01/06/17 18:51> Subjective - Date & Time of Evaluation Date of Evaluation: 01/06/17 Time of Evaluation: 07:15 - Subjective Subjective: Dr. Castle PGY 1 Hospitalist Note Patient seen and evaluated at bedside. He is able to give me his name, the year , his location, and daughter's name. He appears lethargic and answers most questions with nodding his head and giggling. He denies any chest pain, abdominal pain, SOB, cough, fever, or chills. Per nursing, no adverse events over night. Objective - Vital Signs/Intake and Output Vital Signs (last 24 hours): Temp Pulse Resp BP Pulse Ox 98.2 F 91 H 20 133/77 97 01/06/17 07:33 01/06/17 07:33 01/06/17 07:33 01/06/17 07:33 01/06/17 07:33 Intake and Output: 01/06/17 01/06/17 06:59 18:59 Intake Total 1100 800 Output Total 1000 550 Balance 100 250 - Medications Medications: Current Medications Docusate Sodium (Colace) 100 mg PO BID [facility] Last Admin: 01/06/17 10:40 Dose: 100 mg Famotidine (Pepcid) 20 mg PO BID [facility] Last Admin: 01/06/17 10:40 Dose: 20 mg Furosemide (Lasix) 20 mg PO BID [facility] Last Admin: 01/04/17 18:39 Dose: 20 mg Sodium Chloride (Sodium Chloride 0.9%) 1,000 mls @ 100 mls/hr IV .Q10H [facility] Last Admin: 01/06/17 05:57 Dose: 100 mls/hr Insulin Human Regular (Novolin R) 0 unit SC ACHS [facility] PRN Reason: Protocol Last Admin: 01/06/17 13:13 Dose: 1 unit Rosuvastatin Calcium (Crestor) 20 mg PO HS [facility] Last Admin: 01/05/17 21:58 Dose: 20 mg - Labs Labs: 01/06/17 08:04 01/06/17 08:04 PT 12.2 SECONDS (9.7-12.2) 12/30/16 02:18 INR 1.1 12/30/16 02:18 APTT 27 SECONDS (21-34) 12/30/16 02:18 - Constitutional Appears: Non-toxic, No Acute Distress - Head Exam Head Exam: absent: ATRAUMATIC (sutures in place, no evidence of bleeding) - Eye Exam Eye Exam: EOMI, Normal appearance, PERRL Pupil Exam: NORMAL ACCOMODATION, PERRL - ENT Exam ENT Exam: Mucous Membranes Moist. absent: Normal Oropharynx (poor dentition) - Respiratory Exam Respiratory Exam: Clear to Ausculation Bilateral, NORMAL BREATHING PATTERN. absent: Rales, Rhonchi, Wheezes - Cardiovascular Exam Cardiovascular Exam: REGULAR RHYTHM, +S1, +S2. absent: Gallop, Rubs, Murmur - GI/Abdominal Exam GI & Abdominal Exam: Soft, Normal Bowel Sounds. absent: Distended, Tenderness - Extremities Exam Extremities Exam: absent: Normal Inspection (patient unable to fully extend right arm and left leg) - Back Exam Back Exam: NORMAL INSPECTION. absent: rash noted, tenderness - Neurological Exam Neurological Exam: Alert, Awake, CN II-XII Intact, Oriented x3 - Psychiatric Exam Psychiatric exam: Normal Affect, Normal Mood - Skin Skin Exam: Dry, Intact, Normal Color, Warm Assessment and Plan - Assessment and Plan (Free Text) Assessment: 76 year old male PMHx of Hypertension, Hypercholesterolemia, DM2 who was found in the lobby having ataxic gait Plan: Bilateral frontoparietal subdural hematomas left larger than right POD #7 * Consult: Neurosurgery (Dr. Gill) on board help appreciated * Consult: Neurology (Dr. Deshpande) on board help appreciated * Per 01/02-->neurosurgery note-->ok to mobilize and transfer to the floor * CT Head (01/01/17): status post insertion of extra-axial 2 bilateral frontal drainage catheters since prvious exam. Interval decrease in sixure of bilateral subdural hematomas, interval decrease in the size of the mass effect, effacement of the sulci, and left to right midline shift * Drains removed on 01/01/17. * Cytology: negative for malignant cells bilateral; granulation tissue and organizing blood clot * CT head (12/30/16): interval mild worsening of the left subdural hematoma since previous exam, mild worsening of the mass effect on the left brain and left to right midline shift, effacement of the basilar Systane , subfalcine and transtentorial herniation, left side should be considered Bradycardia * Coreg and digoxin held due to blood pressure parameters * Heart rate in 90s * Held Lasix secondary to dehydration * EKG: sinus bradycardia and possible LBBB * Dig level low Hx of HTN * continue to monitor vital signs * Coreg and digoxin (held) with associated blood pressure parameters * Lasix held secondary to dehydration and clinically appearing dry * Lisinopril 20mg PO daily Constipation * Colace 100mg PO BID Hx of DM * [id number]: 6.8 * Low dose insulin sliding scale subq * Accuchecks * Crestor 20mg POqHS Electrolyte imbalance * Nephrology consulted help appreciated * 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 * Hold lasix and continue IVF@75mls * replenish as needed PPX * SCDs * VTE ppx c/i secondary to bleed in brain * Pepcid 20mg PO BID * Reconsult PT/OT for gait deconditoning * Consult: speech and swallow Assessment and plan discussed with attending physician. <Abimbola Antonio V - Last Filed: 04/07/17 23:56> Objective - Vital Signs/Intake and Output Vital Signs (last 24 hours): Temp Pulse Resp BP Pulse Ox 98.0 F 108 H 20 130/75 97 01/13/17 15:00 01/13/17 15:00 01/13/17 15:00 01/13/17 15:00 01/13/17 15:00 - Labs Labs: 01/13/17 07:31 01/13/17 07:31 PT 12.2 SECONDS (9.7-12.2) 12/30/16 02:18 INR 1.1 12/30/16 02:18 APTT 27 SECONDS (21-34) 12/30/16 02:18 Attending/Attestation - Attestation I have personally seen and examined this patient.: Yes I have fully participated in the care of the patient.: Yes I have reviewed all pertinent clinical information, including history, physical exam and plan: Yes
[2017-01-07 08:11] LABS: BASO # 0.1 K/uL (0.0-0.2); BASO % 0.7 % (0.0-2.0); EOS # 0.1 K/uL (0.0-0.7); EOS % 1.4 % (0.0-4.0); HEMATOCRIT 35.5 % (35.0-51.0); LYMPH # 1.1 K/uL (1.0-4.3); LYMPH % 12.3 % (20.0-40.0); MEAN CELL VOLUME 91.6 fL (80.0-94.0); MEAN CORPUSCULAR HEMOGLOBIN 30.7 pg (27.0-31.0); MEAN CORPUSCULAR HGB CONC 33.6 g/dL (33.0-37.0); MEAN PLATELET VOLUME 8.6 fL (7.2-11.7); MONO # 0.9 K/uL (0.0-0.8); MONO % 10.7 % (0.0-10.0); RED CELL DISTRIBUTION WIDTH 14.2 % (11.5-14.5); WHITE BLOOD COUNT 8.8 K/uL (4.8-10.8)
[2017-01-07 08:51] LABS: ALB/GLOB RATIO 0.7 (1.0-2.1); ALKALINE PHOSPHATASE 106 U/L (38-126); ALT/SGPT 54 U/L (21-72); AST/SGOT 49 U/L (17-59); BILIRUBIN,TOTAL 0.4 mg/dL (0.2-1.3); BLOOD UREA NITROGEN 17 mg/dL (9-20); CALCIUM 8.1 mg/dl (8.6-10.4); CARBON DIOXIDE 28 mmol/L (22-30); CHLORIDE 95 mmol/L (98-107); GFR AFRICAN-AMERICAN > 60; GLUCOSE,RANDOM 148 mg/dL (75-110); PHOSPHOROUS 3.7 mg/dL (2.5-4.5); POTASSIUM 3.9 mmol/L (3.6-5.2); SODIUM 130 mmol/L (132-148); TOTAL PROTEIN 6.1 g/dL (6.3-8.3)
--- NOTE | 2017-01-07 09:35 | PN ---
DATE: 01/07/2017 SUBJECTIVE: The patient is lying on the bed, in no acute distress. Denies having any headaches. PHYSICAL EXAMINATION: VITAL SIGNS: His blood pressure is 151/83, heart rate is 103 per minute, breathing at a rate of 16 p er minute, temperature is 98.5 degrees Fahrenheit. HEENT: Normocephalic. Surgical sony are seen in both parietal regions. NECK: Supple. There are no carotid bruits. LUNGS: Clear. CARDIOVASCULAR: S1, S2 audible. No murmurs. ABDOMEN: Soft, nontender. Bowel sounds present. NEUROLOGIC EXAMINATION: MENTAL STATUS: The patient is awake, alert, oriented to self, knows he is in the hospital. He follo ws all simple commands. CRANIAL NERVES: Pupils are 3 mm bilaterally reactive to light. Visual garnica are full. Extraocular movements are intact. There is no facial asymmetry. He is moving all 4 extremities. MOTOR: Power in the upper extremities is 4/5. Power in the lower extremity is 2-3/5. Plantars down going bilaterally. LABORATORY DATA: Labs reviewed, shows WBC 8.8, hemoglobin 11.9, hematocrit of 35.5 and platelets of 237. Sodium is 130, potassium is 3.9, chloride is 95, carbon dioxide 28, BUN of 17, creatinine 0.7 a nd glucose of 148. DIAGNOSTIC DATA: He had an electroencephalogram done, which shows abnormal with mild bihemispheric c erebral dysfunction. IMPRESSION: 1. Subdural hematoma status post craniotomy. 2. Dementia. 3. Hyponatremia. 4. Status post focal twitching of the right upper extremity. 5. Gait dysfunction. RECOMMENDATIONS: 1. The patient apparently had no further twitching of the arm. His sodium is still low. 2. His sodium needs to be corrected. 3. The patient to have physical therapy for gait imbalance. 4. The patient is a good rehab candidate. 5. Once the patient is stable, we will consider starting him on Aricept for his underlying dementia. 6. Please continue supportive care and other treatment. Thank you for the opportunity to participate in the care of this patient. Susy Deshpande MD cc: [id number] TT: 01/07/2017 09:34:31 Confirmation # [id number] Dictation # [id number] dn
--- NOTE | 2017-01-07 09:41 | EEG ---
DATE: 01/06/2017 EEG REPORT INTRODUCTION: This is a digitally-recorded EEG monitoring using standard EEG montages. BACKGROUND RHYTHM: The EEG shows a background activity of 6-7 Hz theta activity in parietooccipital region. The EEG activity is bilaterally symmetrical and synchronous. There is attenuation of the ba ckground activity on eye opening. No sleep recording was noted. ABNORMAL POTENTIALS: No spikes, sharp waves, or focal slowing was seen. PHOTIC STIMULATION AND HYPERVENTILATION: Photic stimulation did not reveal any abnormality. Hyperve ntilation was not performed. IMPRESSION: Abnormal EEG. The above findings are consistent with mild bihemispheric cerebral dysfun ction. No epileptiform activity seen at this EEG recording. Susy Deshpande MD cc: [id number] TT: 01/07/2017 09:40:33 Confirmation # [id number] Dictation # [id number] antoinette
[2017-01-07] MEDS: (Novolin R) Insulin Human Regular 100 units/ml vial SC SCH ×4 (09:43→21:35)
--- NOTE | 2017-01-07 10:40 | CP.PCM.PN ---
Subjective - Date & Time of Evaluation Date of Evaluation: 01/06/17 Time of Evaluation: 18:30 - Subjective Subjective: Nephrology f/u note, patient being seen for hyponatremia; Patient denies any shortness of breath; reportedly tolerating diet per nursing staff; Objective - Vital Signs/Intake and Output Vital Signs (last 24 hours): Temp Pulse Resp BP Pulse Ox 98.5 F 103 H 20 151/83 H 95 01/07/17 07:00 01/07/17 07:00 01/07/17 07:00 01/07/17 07:00 01/07/17 07:00 Intake and Output: 01/07/17 01/07/17 06:59 18:59 Intake Total 800 Output Total 800 Balance 0 - Medications Medications: Current Medications Docusate Sodium (Colace) 100 mg PO BID [facility] Last Admin: 01/07/17 09:43 Dose: 100 mg Famotidine (Pepcid) 20 mg PO BID [facility] Last Admin: 01/07/17 09:42 Dose: 20 mg Furosemide (Lasix) 20 mg PO BID [facility] Last Admin: 01/04/17 18:39 Dose: 20 mg Sodium Chloride (Sodium Chloride 0.9%) 1,000 mls @ 100 mls/hr IV .Q10H [facility] Last Admin: 01/06/17 17:42 Dose: 100 mls/hr Insulin Human Regular (Novolin R) 0 unit SC ACHS [facility] PRN Reason: Protocol Last Admin: 01/07/17 09:43 Dose: Not Given Rosuvastatin Calcium (Crestor) 20 mg PO HS [facility] Last Admin: 01/06/17 21:34 Dose: 20 mg - Labs Labs: 01/07/17 08:02 01/07/17 08:02 PT 12.2 SECONDS (9.7-12.2) 12/30/16 02:18 INR 1.1 12/30/16 02:18 APTT 27 SECONDS (21-34) 12/30/16 02:18 - Constitutional Appears: Well, In Acute Distress - Head Exam Additional comments: Bilateral craniotomy surgical wounds dry and clean; - Eye Exam Eye Exam: Normal appearance. absent: Scleral icterus - ENT Exam ENT Exam: Mucous Membranes Moist - Neck Exam Neck Exam: Normal Inspection - Respiratory Exam Respiratory Exam: Clear to Ausculation Bilateral, NORMAL BREATHING PATTERN. absent: Rales, Rhonchi, Wheezes - Cardiovascular Exam Cardiovascular Exam: REGULAR RHYTHM, +S1, +S2 - GI/Abdominal Exam GI & Abdominal Exam: Soft. absent: Distended - Exam Exam: absent: Bladder Distension - Extremities Exam Extremities Exam: Normal Capillary Refill. absent: Pedal Edema - Neurological Exam Neurological Exam: Alert, Awake Additional comments: Oriented to name only; - Psychiatric Exam Psychiatric exam: absent: Anxious, Depressed - Skin Skin Exam: Warm. absent: Cyanosis Assessment and Plan (1) Hyponatremia Assessment & Plan: Most likely secondary to volume depletion caused by cerebral salt wasting as Ur Na elevated even after effect of lasix wore off and before adequate volume replenishment; also, SIADH would have caused significant worsening of hyponatremia with isotonic saline administration given the very high urine osm; Cerebral salt wasting is generally considered self limited, should continue with salt replenishment; -continue NS at 100 cc/hr Status: Acute (2) Subdural hematoma Assessment & Plan: Likely induced patient's hyponatremia; recs as above; f/u with neuro recs; Status: Acute (3) Hypotension Assessment & Plan: Improved; continue to hold BP meds and continue IVF; can switch to salt tabs as outpatient; Status: Acute
[2017-01-07] MEDS: Sodium Chloride 0.9% 1,000 ML IV SCH (12:40)
--- NOTE | 2017-01-07 18:42 | CP.PCM.PN ---
<Noah Castle - Last Filed: 01/07/17 18:38> Subjective - Date & Time of Evaluation Date of Evaluation: 01/07/17 Time of Evaluation: 07:45 - Subjective Subjective: Dr. Castle PGY 1 Hospitalist Note Patient seen and evaluated at bedside. He is more alert today and talks gave me his name, year, location, and daughter's name. He appears more awake and able to answer questions appropriately. He denies any chest pain, abdominal pain, SOB , cough, fever, or chills. Per nursing, no adverse events over night. Objective - Vital Signs/Intake and Output Vital Signs (last 24 hours): Temp Pulse Resp BP Pulse Ox 99 F 93 H 20 146/73 99 01/07/17 16:00 01/07/17 16:00 01/07/17 16:00 01/07/17 16:00 01/07/17 16:00 Intake and Output: 01/07/17 01/07/17 06:59 18:59 Intake Total 800 Output Total 800 1200 Balance 0 -1200 - Medications Medications: Current Medications Docusate Sodium (Colace) 100 mg PO BID [facility] Last Admin: 01/07/17 17:47 Dose: 100 mg Famotidine (Pepcid) 20 mg PO BID [facility] Last Admin: 01/07/17 17:47 Dose: 20 mg Furosemide (Lasix) 20 mg PO BID [facility] Last Admin: 01/04/17 18:39 Dose: 20 mg Insulin Human Regular (Novolin R) 0 unit SC ACHS [facility] PRN Reason: Protocol Last Admin: 01/07/17 17:48 Dose: 1 unit Rosuvastatin Calcium (Crestor) 20 mg PO HS [facility] Last Admin: 01/06/17 21:34 Dose: 20 mg Sodium Chloride (Sodium Chloride Tab) 2 gm PO TID [facility] - Labs Labs: 01/07/17 08:02 01/07/17 08:02 PT 12.2 SECONDS (9.7-12.2) 12/30/16 02:18 INR 1.1 12/30/16 02:18 APTT 27 SECONDS (21-34) 12/30/16 02:18 - Constitutional Appears: Non-toxic, No Acute Distress - Head Exam Head Exam: NORMOCEPHALIC. absent: ATRAUMATIC (sutures in palce) - Eye Exam Eye Exam: EOMI, Normal appearance, PERRL Pupil Exam: NORMAL ACCOMODATION, PERRL - ENT Exam ENT Exam: Mucous Membranes Moist. absent: Normal Oropharynx (poor dentition) - Neck Exam Neck Exam: Normal Inspection. absent: Tenderness, Thyromegaly - Respiratory Exam Respiratory Exam: NORMAL BREATHING PATTERN. absent: Rales, Rhonchi, Wheezes - Cardiovascular Exam Cardiovascular Exam: REGULAR RHYTHM, +S1, +S2, Murmur (+2 systolic). absent: Gallop, Rubs - GI/Abdominal Exam GI & Abdominal Exam: Soft, Normal Bowel Sounds. absent: Distended, Guarding, Tenderness - Extremities Exam Extremities Exam: absent: Normal Inspection (decreased strength and ability to extend but improved from yesterday), Pedal Edema, Tenderness - Neurological Exam Neurological Exam: Alert, Awake, CN II-XII Intact, Oriented x3 - Psychiatric Exam Psychiatric exam: Normal Affect, Normal Mood - Skin Skin Exam: Dry, Intact, Normal Color, Warm Assessment and Plan - Assessment and Plan (Free Text) Assessment: 76 year old male PMHx of Hypertension, Hypercholesterolemia, DM2 who was found in the lobby having ataxic gait s/p craniotomy Plan: Bilateral frontoparietal subdural hematomas left larger than right POD #8 * Consult: Neurosurgery (Dr. Gill) on board help appreciated * Consult: Neurology (Dr. Deshpande) on board help appreciated * Per 01/02-->neurosurgery note-->ok to mobilize and transfer to the floor * CT Head (01/01/17): status post insertion of extra-axial 2 bilateral frontal drainage catheters since prvious exam. Interval decrease in sixure of bilateral subdural hematomas, interval decrease in the size of the mass effect, effacement of the sulci, and left to right midline shift * Drains removed on 01/01/17. * Cytology: negative for malignant cells bilateral; granulation tissue and organizing blood clot * CT head (12/30/16): interval mild worsening of the left subdural hematoma since previous exam, mild worsening of the mass effect on the left brain and left to right midline shift, effacement of the basilar Systane , subfalcine and transtentorial herniation, left side should be considered Bradycardia * resolved * Coreg and digoxin held due to blood pressure parameters * Heart rate in 90s * Held Lasix secondary to dehydration * EKG: sinus bradycardia and possible LBBB * Dig level low Hx of HTN * continue to monitor vital signs * Coreg and digoxin (held) with associated blood pressure parameters * Lasix held secondary to dehydration and clinically appearing dry * Lisinopril 20mg PO daily Constipation * Colace 100mg PO BID Hx of DM * [id number]: 6.8 * Low dose insulin sliding scale subq * Accuchecks * Crestor 20mg POqHS Electrolyte imbalance * Nephrology consulted help appreciated * 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 * Hold lasix and continue IVF@75mls * will start on salt tablets for discharge * replenish as needed PPX * SCDs * VTE ppx c/i secondary to bleed in brain * Pepcid 20mg PO BID * Reconsulted PT/OT for gait deconditoning * Consult: speech and swallow * Dispo: transfer to [facility] or [facility] Assessment and plan discussed with attending physician. <Abimbola Antonio V - Last Filed: 04/07/17 23:56> Objective - Vital Signs/Intake and Output Vital Signs (last 24 hours): Temp Pulse Resp BP Pulse Ox 98.0 F 108 H 20 130/75 97 01/13/17 15:00 01/13/17 15:00 01/13/17 15:00 01/13/17 15:00 01/13/17 15:00 - Labs Labs: 01/13/17 07:31 01/13/17 07:31 PT 12.2 SECONDS (9.7-12.2) 12/30/16 02:18 INR 1.1 12/30/16 02:18 APTT 27 SECONDS (21-34) 12/30/16 02:18 Attending/Attestation - Attestation I have personally seen and examined this patient.: Yes I have fully participated in the care of the patient.: Yes I have reviewed all pertinent clinical information, including history, physical exam and plan: Yes
--- NOTE | 2017-01-07 20:52 | PN ---
DATE: 01/07/2017 HISTORY OF PRESENT ILLNESS: A 76-year-old male with history of hypertension, admitted with bilateral subdural hematomas, now status post craniotomy and evacuation. Nephrology service following for hypo natremia. Per nursing staff, the patient tolerating diet well. The patient's history unreliable as when asked whether he is short of breath, he replies both in the affirmative and negative. PHYSICAL EXAMINATION: VITAL SIGNS: This morning, blood pressure 151/83, heart rate 103, respirations 20, temperature 98.5, O2 sat 95% on room air. GENERAL: No distress, able to answer yes and no to questions, following commands. HEENT: Moist mucous membranes. Nonicteric. CHEST: Clear to auscultation bilaterally. No rales, no rhonchi, no wheezes. HEART: S1, S2 normal. No murmurs, no gallops, no rubs. ABDOMEN: Soft, nontender, nondistended. EXTREMITIES: Minimal lower leg edema bilaterally. PSYCHIATRIC: Normal mood, normal affect. NEUROLOGIC: Oriented to name only. LABORATORY DATA: WBC 8.8, hemoglobin 11.9, hematocrit 35.5, platelets 237. Chemistry: Sodium , potassium 3.9, chloride 95, bicarbonate 28, BUN 17, creatinine 0.7, glucose 148, calcium 8.1, album in 2.5. Urine sodium today 164. Urine osmolality 694. Urine microalbumin from 2 days ago 71.0 mg p er liter. Urine creatinine 116.4 mg/dL. ASSESSMENT AND PLAN: 1. Hyponatremia, etiology now appears to be mixed, previously thought to be volume depletion caused by cerebral salt wasting. His urine sodium was elevated, even after the effect of Lasix wore off and before adequate volume replenishment. 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 Plan: We will discontinue IV flui ds and start salt tabs 2 g t.i.d. for now. 2. 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 It possibly also resolves as in tracranial abnormality resolves, would need to follow closely. 3. Hypertension. The patient off antihypertensive meds in the setting of volume depletion, now with elevated blood pressures. Was previously on NAE inhibitor. Would avoid giving NAE inhibitor in the setting of cerebral salt wasting as patient may go back to becoming volume depleted and in that case, NAE inhibitor would be a setup for acute renal failure. Holding IV fluids and starting sodium chlor alejandro tablets, and if blood pressure remains elevated, should start nifedipine XL 30 mg daily. 4. Diabetes. No proteinuria per UA and urine microalbumin to creatinine ratio is within normal limi ts. No need for NAE inhibitor or ARB at this time. Marck Guzman MD cc: [id number] TT: 01/07/2017 20:51:27 Confirmation # [id number] Dictation # [id number]
[2017-01-08 07:23] LABS: BASO % 0.3 % (0.0-2.0); EOS # 0.1 K/uL (0.0-0.7); EOS % 1.1 % (0.0-4.0); HEMATOCRIT 36.1 % (35.0-51.0); LYMPH % 11.6 % (20.0-40.0); MEAN CELL VOLUME 91.5 fL (80.0-94.0); MEAN CORPUSCULAR HEMOGLOBIN 31.5 pg (27.0-31.0); MEAN CORPUSCULAR HGB CONC 34.4 g/dL (33.0-37.0); MEAN PLATELET VOLUME 8.2 fL (7.2-11.7); MONO # 0.9 K/uL (0.0-0.8); MONO % 11.2 % (0.0-10.0); NRBC % 0.1 % (0.0-2.0); RED CELL DISTRIBUTION WIDTH 14.3 % (11.5-14.5); WHITE BLOOD COUNT 8.4 K/uL (4.8-10.8)
[2017-01-08 08:09] LABS: CHLORIDE 94 mmol/L (98-107); SODIUM 129 mmol/L (132-148)
[2017-01-08 08:12] LABS: ALB/GLOB RATIO 0.8 (1.0-2.1); ALKALINE PHOSPHATASE 107 U/L (38-126); ALT/SGPT 44 U/L (21-72); AST/SGOT 42 U/L (17-59); BILIRUBIN,TOTAL 0.9 mg/dL (0.2-1.3); BLOOD UREA NITROGEN 14 mg/dL (9-20); CARBON DIOXIDE 26 mmol/L (22-30); GFR AFRICAN-AMERICAN > 60; GLUCOSE,RANDOM 168 mg/dL (75-110); PHOSPHOROUS 3.5 mg/dL (2.5-4.5); TOTAL PROTEIN 6.6 g/dL (6.3-8.3)
[2017-01-08 08:13] LABS: CALCIUM 8.2 mg/dl (8.6-10.4); MAGNESIUM 2.2 mg/dL (1.6-2.3)
[2017-01-08] MEDS: (Novolin R) Insulin Human Regular 100 units/ml vial SC SCH ×4 (08:25→22:07)
--- NOTE | 2017-01-08 21:00 | CP.PCM.PN ---
<Noah Castle - Last Filed: 01/08/17 20:58> Subjective - Date & Time of Evaluation Date of Evaluation: 01/08/17 Time of Evaluation: 07:15 - Subjective Subjective: Dr. Castle PGY 1 Hospitalist Note Patient seen and evaluated at bedside. He is sitting up and eating breakfast. He is able to answer questions appropriately. He denies any chest pain, SOB, abdominal pain, dysuria, fever, or chills. Per nursing, no adverse events over night. Objective - Vital Signs/Intake and Output Vital Signs (last 24 hours): Temp Pulse Resp BP Pulse Ox 97.7 F 96 H 20 144/88 99 01/08/17 15:00 01/08/17 15:00 01/08/17 15:00 01/08/17 15:00 01/08/17 15:00 Intake and Output: 01/08/17 01/09/17 18:59 06:59 Intake Total 120 Output Total 2150 Balance -2030 - Medications Medications: Current Medications Docusate Sodium (Colace) 100 mg PO BID [facility] Last Admin: 01/08/17 17:54 Dose: 100 mg Famotidine (Pepcid) 20 mg PO BID [facility] Last Admin: 01/08/17 17:54 Dose: 20 mg Furosemide (Lasix) 20 mg PO BID [facility] Last Admin: 01/04/17 18:39 Dose: 20 mg Insulin Human Regular (Novolin R) 0 unit SC ACHS [facility] PRN Reason: Protocol Last Admin: 01/08/17 17:46 Dose: Not Given Rosuvastatin Calcium (Crestor) 20 mg PO HS [facility] Last Admin: 01/07/17 21:34 Dose: 20 mg Sodium Chloride (Sodium Chloride Tab) 2 gm PO TID [facility] Last Admin: 01/08/17 18:34 Dose: 2 gm - Labs Labs: 01/08/17 07:07 01/08/17 07:07 PT 12.2 SECONDS (9.7-12.2) 12/30/16 02:18 INR 1.1 12/30/16 02:18 APTT 27 SECONDS (21-34) 12/30/16 02:18 - Constitutional Appears: Non-toxic, No Acute Distress - Head Exam Head Exam: NORMOCEPHALIC. absent: ATRAUMATIC (sutures on scalp in place) - Eye Exam Eye Exam: EOMI, Normal appearance, PERRL Pupil Exam: NORMAL ACCOMODATION, PERRL - ENT Exam ENT Exam: Mucous Membranes Moist. absent: Normal Oropharynx (poor dentition) - Neck Exam Neck Exam: Full ROM - Respiratory Exam Respiratory Exam: Clear to Ausculation Bilateral, NORMAL BREATHING PATTERN. absent: Rales, Rhonchi, Wheezes - Cardiovascular Exam Cardiovascular Exam: REGULAR RHYTHM, +S1, +S2. absent: Gallop, Rubs, Murmur - GI/Abdominal Exam GI & Abdominal Exam: Soft, Normal Bowel Sounds. absent: Tenderness - Extremities Exam Extremities Exam: Full ROM, Normal Inspection. absent: Pedal Edema, Tenderness - Back Exam Back Exam: NORMAL INSPECTION. absent: rash noted, tenderness - Neurological Exam Neurological Exam: Alert, Awake, CN II-XII Intact, Oriented x3 - Psychiatric Exam Psychiatric exam: Normal Affect, Normal Mood - Skin Skin Exam: Dry, Intact, Normal Color, Warm Assessment and Plan - Assessment and Plan (Free Text) Assessment: 76 year old male PMHx of Hypertension, Hypercholesterolemia, DM2 who was found in the lobby having ataxic gait s/p craniotomy Plan: Bilateral frontoparietal subdural hematomas left larger than right POD #9 * Consult: Neurosurgery (Dr. Gill) on board help appreciated * Consult: Neurology (Dr. Deshpande) on board help appreciated * Per 01/02-->neurosurgery note-->ok to mobilize and transfer to the floor * CT Head (01/01/17): status post insertion of extra-axial 2 bilateral frontal drainage catheters since prvious exam. Interval decrease in sixure of bilateral subdural hematomas, interval decrease in the size of the mass effect, effacement of the sulci, and left to right midline shift * Drains removed on 01/01/17. * Cytology: negative for malignant cells bilateral; granulation tissue and organizing blood clot * CT head (12/30/16): interval mild worsening of the left subdural hematoma since previous exam, mild worsening of the mass effect on the left brain and left to right midline shift, effacement of the basilar Systane , subfalcine and transtentorial herniation, left side should be considered * Per neurosurg, sony can be removed 10-13 days from procedure Bradycardia * resolved * Coreg and digoxin held due to blood pressure parameters * Heart rate in 90s * Held Lasix secondary to dehydration * EKG: sinus bradycardia and possible LBBB * Dig level low Hx of HTN * continue to monitor vital signs * Coreg and digoxin (held) with associated blood pressure parameters * Lasix held secondary to dehydration and clinically appearing dry * Lisinopril 20mg PO daily Constipation * Colace 100mg PO BID Hx of DM * Bbdwhonmxwo7e: 6.8 * Low dose insulin sliding scale subq * Accuchecks * Crestor 20mg POqHS Electrolyte imbalance * Nephrology consulted help appreciated * Likely due to cerebral salt wasting * Sodium 129 this AM * urine NA 46, Urine OSM 719, Urine Microalbumin 71. * Hold lasix and continue IVF@75mls * started on salt tablets * replenish as needed PPX * SCDs * VTE ppx c/i secondary to bleed in brain * Pepcid 20mg PO BID * Reconsulted PT/OT for gait deconditoning * Consult: speech and swallow * Dispo: transfer to [facility] or [facility] Assessment and plan discussed with attending physician. <Abimbola Antonio V - Last Filed: 04/07/17 23:57> Objective - Vital Signs/Intake and Output Vital Signs (last 24 hours): Temp Pulse Resp BP Pulse Ox 98.0 F 108 H 20 130/75 97 01/13/17 15:00 01/13/17 15:00 01/13/17 15:00 01/13/17 15:00 01/13/17 15:00 - Labs Labs: 01/13/17 07:31 01/13/17 07:31 PT 12.2 SECONDS (9.7-12.2) 12/30/16 02:18 INR 1.1 12/30/16 02:18 APTT 27 SECONDS (21-34) 12/30/16 02:18 Attending/Attestation - Attestation I have personally seen and examined this patient.: Yes I have fully participated in the care of the patient.: Yes I have reviewed all pertinent clinical information, including history, physical exam and plan: Yes
--- NOTE | 2017-01-08 23:59 | CP.PCM.PN ---
Subjective - Date & Time of Evaluation Date of Evaluation: 01/08/17 Time of Evaluation: 18:00 - Subjective Subjective: Reportedly tolerating diet; Objective - Vital Signs/Intake and Output Vital Signs (last 24 hours): Temp Pulse Resp BP Pulse Ox 98.1 F 87 20 104/62 99 01/08/17 23:29 01/08/17 23:29 01/08/17 23:29 01/08/17 23:29 01/08/17 23:29 Intake and Output: 01/08/17 01/09/17 18:59 06:59 Intake Total 120 120 Output Total 2150 650 Balance -2030 -530 - Medications Medications: Current Medications Docusate Sodium (Colace) 100 mg PO BID [facility] Last Admin: 01/08/17 17:54 Dose: 100 mg Famotidine (Pepcid) 20 mg PO BID [facility] Last Admin: 01/08/17 17:54 Dose: 20 mg Furosemide (Lasix) 20 mg PO BID [facility] Last Admin: 01/04/17 18:39 Dose: 20 mg Insulin Human Regular (Novolin R) 0 unit SC ACHS [facility] PRN Reason: Protocol Last Admin: 01/08/17 22:07 Dose: Not Given Rosuvastatin Calcium (Crestor) 20 mg PO HS [facility] Last Admin: 01/08/17 22:07 Dose: 20 mg Sodium Chloride (Sodium Chloride Tab) 2 gm PO TID [facility] Last Admin: 01/08/17 18:34 Dose: 2 gm - Labs Labs: 01/08/17 07:07 01/08/17 07:07 PT 12.2 SECONDS (9.7-12.2) 12/30/16 02:18 INR 1.1 12/30/16 02:18 APTT 27 SECONDS (21-34) 12/30/16 02:18 - Constitutional Appears: No Acute Distress Assessment and Plan (1) Hyponatremia Status: Acute (2) Subdural hematoma Status: Acute (3) Hypotension Status: Acute
--- NOTE | 2017-01-09 03:09 | CP.PCM.PN ---
<JosephineKatrin hidalgo - Last Filed: 01/09/17 03:28> Subjective - Date & Time of Evaluation Date of Evaluation: 01/09/17 Time of Evaluation: 03:28 - Subjective Subjective: PGY1 Medicine note for Dr. Antonio Patient seen and examined at bedside- sleeping. Patient was disoriented when woken up and kept falling back asleep. ROS was limited as patient kept falling asleep but he denied any chest pain, SOB, abdominal pain, and pain in his legs. Objective - Vital Signs/Intake and Output Vital Signs (last 24 hours): Temp Pulse Resp BP Pulse Ox 98.1 F 87 20 104/62 99 01/08/17 23:29 01/08/17 23:29 01/08/17 23:29 01/08/17 23:29 01/08/17 23:29 Intake and Output: 01/08/17 01/09/17 18:59 06:59 Intake Total 120 120 Output Total 2150 650 Balance -2030 -530 - Medications Medications: Current Medications Docusate Sodium (Colace) 100 mg PO BID [facility] Last Admin: 01/08/17 17:54 Dose: 100 mg Famotidine (Pepcid) 20 mg PO BID [facility] Last Admin: 01/08/17 17:54 Dose: 20 mg Furosemide (Lasix) 20 mg PO BID [facility] Last Admin: 01/04/17 18:39 Dose: 20 mg Insulin Human Regular (Novolin R) 0 unit SC ACHS [facility] PRN Reason: Protocol Last Admin: 01/08/17 22:07 Dose: Not Given Rosuvastatin Calcium (Crestor) 20 mg PO HS [facility] Last Admin: 01/08/17 22:07 Dose: 20 mg Sodium Chloride (Sodium Chloride Tab) 2 gm PO TID [facility] Last Admin: 01/08/17 18:34 Dose: 2 gm - Labs Labs: 01/08/17 07:07 01/08/17 07:07 PT 12.2 SECONDS (9.7-12.2) 12/30/16 02:18 INR 1.1 12/30/16 02:18 APTT 27 SECONDS (21-34) 12/30/16 02:18 - Constitutional Appears: Non-toxic, No Acute Distress - Head Exam Head Exam: NORMAL INSPECTION Additional comments: scalp sutures in place - Eye Exam Eye Exam: Normal appearance - ENT Exam ENT Exam: Mucous Membranes Moist - Respiratory Exam Respiratory Exam: Clear to Ausculation Bilateral. absent: Rales, Rhonchi, Wheezes - Cardiovascular Exam Cardiovascular Exam: REGULAR RHYTHM, +S1, +S2 - GI/Abdominal Exam GI & Abdominal Exam: Soft, Normal Bowel Sounds. absent: Tenderness - Extremities Exam Extremities Exam: Normal Inspection - Neurological Exam Neurological Exam: Alert, Awake - Psychiatric Exam Psychiatric exam: Normal Affect, Normal Mood - Skin Skin Exam: Dry, Intact, Normal Color, Warm Assessment and Plan - Assessment and Plan (Free Text) Assessment: 76 year old male PMHx of Hypertension, Hypercholesterolemia, DM2 who was found in the lobby having ataxic gait s/p craniotomy POD#10 Plan: Bilateral frontoparietal subdural hematomas left larger than right POD #10 * Consult: Neurosurgery (Dr. Gill) on board help appreciated * Consult: Neurology (Dr. Deshpande) on board help appreciated * Per 01/02-->neurosurgery note-->ok to mobilize and transfer to the floor * CT Head (01/01/17): status post insertion of extra-axial 2 bilateral frontal drainage catheters since prvious exam. Interval decrease in sixure of bilateral subdural hematomas, interval decrease in the size of the mass effect, effacement of the sulci, and left to right midline shift * Drains removed on 01/01/17. * Cytology: negative for malignant cells bilateral; granulation tissue and organizing blood clot * CT head (12/30/16): interval mild worsening of the left subdural hematoma since previous exam, mild worsening of the mass effect on the left brain and left to right midline shift, effacement of the basilar Systane , subfalcine and transtentorial herniation, left side should be considered * Per neurosurg, sony can be removed 10-13 days from procedure Bradycardia * resolved * Coreg and digoxin held due to blood pressure parameters * Heart rate in 90s * Held Lasix secondary to dehydration * EKG: sinus bradycardia and possible LBBB * Dig level low Hx of HTN * continue to monitor vital signs * Coreg and digoxin (held) with associated blood pressure parameters * Lasix held secondary to dehydration and clinically appearing dry * Lisinopril 20mg PO daily Constipation * Colace 100mg PO BID Hx of DM * Semdrodfvha4w: 6.8 * Low dose insulin sliding scale subq * Accuchecks * Crestor 20mg POqHS Electrolyte imbalance * Nephrology consulted help appreciated * Likely due to cerebral salt wasting * Sodium 129 this AM * urine NA 46, Urine OSM 719, Urine Microalbumin 71. * Hold lasix and continue IVF@75mls * started on salt tablets * replenish as needed PPX * SCDs * VTE ppx c/i secondary to bleed in brain * Pepcid 20mg PO BID * Reconsulted PT/OT for gait deconditoning * Consult: speech and swallow * Dispo: transfer to [facility] or [facility] Will discuss with Dr. Marisela Burton PGY1 <Abimbola Antonio V - Last Filed: 01/09/17 17:35> Objective - Vital Signs/Intake and Output Vital Signs (last 24 hours): Temp Pulse Resp BP Pulse Ox 98.1 F 82 20 121/71 98 01/09/17 15:33 01/09/17 15:33 01/09/17 15:33 01/09/17 15:33 01/09/17 15:33 Intake and Output: 01/09/17 01/09/17 06:59 18:59 Intake Total 120 700 Output Total 950 400 Balance -830 300 - Medications Medications: Current Medications Docusate Sodium (Colace) 100 mg PO BID [facility] Last Admin: 01/09/17 09:50 Dose: 100 mg Famotidine (Pepcid) 20 mg PO BID [facility] Last Admin: 01/09/17 09:51 Dose: 20 mg Furosemide (Lasix) 20 mg PO BID [facility] Last Admin: 01/04/17 18:39 Dose: 20 mg Insulin Human Regular (Novolin R) 0 unit SC ACHS [facility] PRN Reason: Protocol Last Admin: 01/09/17 12:17 Dose: Not Given Rosuvastatin Calcium (Crestor) 20 mg PO HS [facility] Last Admin: 01/08/17 22:07 Dose: 20 mg Sodium Chloride (Sodium Chloride Tab) 2 gm PO TID [facility] Last Admin: 01/09/17 14:06 Dose: 2 gm - Labs Labs: 01/09/17 08:07 01/09/17 08:07 PT 12.2 SECONDS (9.7-12.2) 12/30/16 02:18 INR 1.1 12/30/16 02:18 APTT 27 SECONDS (21-34) 12/30/16 02:18 Attending/Attestation - Attestation I have personally seen and examined this patient.: Yes I have fully participated in the care of the patient.: Yes I have reviewed all pertinent clinical information, including history, physical exam and plan: Yes Notes (Text): Patient seen, examined and case discussed with day-time resident. Patient is awake, alert, no acute distress. No observed purulence. Patient able to state his name, recall the name of the president, and conversant in [place]. Discussed with nephrology, patient to continue salt tablets. Discussed with case management, patient is pending authorization to follow-up for Wednesday. Per review of UA, hematuria, ordered for Renal US, urine cytology, and PSA. 1) Bilateral frontoparietal subdural hematoma * Consult: Neurosurgery (Dr. Gill) on board help appreciated * Consult: Neurology (Dr. Deshpande) on board help appreciated * Per 01/02-->neurosurgery note-->ok to mobilize and transfer to the floor * CT Head (01/01/17): status post insertion of extra-axial 2 bilateral frontal drainage catheters since prvious exam. Interval decrease in sixure of bilateral subdural hematomas, interval decrease in the size of the mass effect, effacement of the sulci, and left to right midline shift * Drains removed on 01/01/17. * Cytology: negative for malignant cells bilateral; granulation tissue and organizing blood clot * CT head (12/30/16): interval mild worsening of the left subdural hematoma since previous exam, mild worsening of the mass effect on the left brain and left to right midline shift, effacement of the basilar Systane , subfalcine and transtentorial herniation, left side should be considered 2) Bradycardia * Resolved * Off anti-hypertensives * Monitor 3) Hypertension * off anti-hypertensives * monitor vital signs 4) Constipation * Colace 100mg PO BID 5) Diabetes type 2 * Cubmsdfajnb7g: 6.8 * Low dose insulin sliding scale subq * Accuchecks QAC and HS * Crestor 20mg POqHS 6) Hyponatremia * 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 Dagmar Read) on board * Continue sodium tablets 7) Hematuria * Ordered for Renal US * Order for PSA * Order for urine cytology 8) PPX * SCDs * VTE ppx c/i secondary to bleed in brain * Pepcid 20mg PO BID * Reconsult PT/OT for gait deconditoning * Consult: speech and swallow * KACY cole 9) Disposition * Patient is pending authorization for KACY/retirement. * Patient will need sony removed by Wednesday
[2017-01-09 08:16] LABS: BASO % 0.5 % (0.0-2.0); EOS # 0.1 K/uL (0.0-0.7); EOS % 0.7 % (0.0-4.0); HEMATOCRIT 35.3 % (35.0-51.0); LYMPH # 1.2 K/uL (1.0-4.3); LYMPH % 10.8 % (20.0-40.0); MEAN CELL VOLUME 90.6 fL (80.0-94.0); MEAN CORPUSCULAR HEMOGLOBIN 30.8 pg (27.0-31.0); MEAN PLATELET VOLUME 8.4 fL (7.2-11.7); MONO # 1.2 K/uL (0.0-0.8); MONO % 11.1 % (0.0-10.0); RED CELL DISTRIBUTION WIDTH 14.1 % (11.5-14.5); WHITE BLOOD COUNT 10.7 K/uL (4.8-10.8)
[2017-01-09 08:24] LABS: CHLORIDE 93 mmol/L (98-107); POTASSIUM 4.2 mmol/L (3.6-5.2); SODIUM 130 mmol/L (132-148)
[2017-01-09 08:27] LABS: BLOOD UREA NITROGEN 18 mg/dL (9-20); CALCIUM 8.4 mg/dl (8.6-10.4); CARBON DIOXIDE 27 mmol/L (22-30); GFR AFRICAN-AMERICAN > 60; GLUCOSE,RANDOM 157 mg/dL (75-110)
[2017-01-09] MEDS: (Novolin R) Insulin Human Regular 100 units/ml vial SC SCH ×4 (08:51→21:41)
[2017-01-09 13:18] LABS: RBC URINE 34 /hpf (0-3); URINE BILIRUBIN NEGATIVE (NEGATIVE); URINE BLOOD 2+ (NEGATIVE); URINE COLOR Yellow (YELLOW); URINE GLUCOSE (UA) NORMAL (Normal); URINE KETONE NEGATIVE (NEGATIVE); URINE LEUKOCYTE ESTERASE NEG Leu/uL (Negative); URINE PROTEIN 1+ mg/dL (NEGATIVE); WBC URINE 2 /hpf (0-5)
--- NOTE | 2017-01-09 23:45 | CP.PCM.PN ---
Subjective - Date & Time of Evaluation Date of Evaluation: 01/09/17 Time of Evaluation: 13:00 - Subjective Subjective: Patient being seen for hyponatremia; Per nursing staff, tolerating diet well; denies any sob; Objective - Vital Signs/Intake and Output Vital Signs (last 24 hours): Temp Pulse Resp BP Pulse Ox 98.2 F 82 20 128/68 98 01/09/17 23:36 01/09/17 23:36 01/09/17 23:36 01/09/17 23:36 01/09/17 23:36 Intake and Output: 01/09/17 01/10/17 18:59 06:59 Intake Total 700 600 Output Total 400 400 Balance 300 200 - Medications Medications: Current Medications Docusate Sodium (Colace) 100 mg PO BID [facility] Last Admin: 01/09/17 17:43 Dose: 100 mg Famotidine (Pepcid) 20 mg PO BID [facility] Last Admin: 01/09/17 17:43 Dose: 20 mg Furosemide (Lasix) 20 mg PO BID [facility] Last Admin: 01/04/17 18:39 Dose: 20 mg Insulin Human Regular (Novolin R) 0 unit SC ACHS [facility] PRN Reason: Protocol Last Admin: 01/09/17 21:41 Dose: Not Given Rosuvastatin Calcium (Crestor) 20 mg PO HS [facility] Last Admin: 01/09/17 21:07 Dose: 20 mg Sodium Chloride (Sodium Chloride Tab) 2 gm PO TID [facility] Last Admin: 01/09/17 18:10 Dose: 2 gm - Labs Labs: 01/09/17 08:07 01/09/17 08:07 PT 12.2 SECONDS (9.7-12.2) 12/30/16 02:18 INR 1.1 12/30/16 02:18 APTT 27 SECONDS (21-34) 12/30/16 02:18 - Constitutional Appears: Well, No Acute Distress - Head Exam Head Exam: NORMAL INSPECTION Additional comments: bilateral craniotomy sutures dry and clean; - Eye Exam Eye Exam: Normal appearance. absent: Scleral icterus - ENT Exam ENT Exam: Mucous Membranes Moist - Neck Exam Neck Exam: Normal Inspection - Respiratory Exam Respiratory Exam: Clear to Ausculation Bilateral. absent: Rales, Rhonchi, Wheezes - Cardiovascular Exam Cardiovascular Exam: REGULAR RHYTHM, +S1, +S2 - GI/Abdominal Exam GI & Abdominal Exam: Soft. absent: Distended, Tenderness - Exam Exam: absent: Bladder Distension - Extremities Exam Additional comments: Minimal leg edema; - Neurological Exam Neurological Exam: Alert, Awake - Psychiatric Exam Psychiatric exam: absent: Anxious, Depressed - Skin Skin Exam: Normal Color, Warm. absent: Cyanosis Assessment and Plan (1) Hyponatremia Assessment & Plan: Mild but peristent; likely cerebral salt wasting with SIADH as well; started on salt tabs but hasn't received them consistently; SBP dropping from 150 to 100 after switching from NS to salt tabs; -continue sodium chloride tabs 2 g tid -fluid restriction to < 1500 cc per day -if hyponatremia worsens, increase salt tab dose (may need to restart NS if BP remains consistently low/normal); Status: Acute (2) Subdural hematoma Assessment & Plan: Likely cause of hyponatremia with ensuing [employer]/SIADH; f/u with neuro recs for further management; Status: Acute (3) Hypotension Assessment & Plan: Resolved after holding BP meds and starting NS; see above, may need to restart NS; Status: Acute
--- NOTE | 2017-01-10 00:58 | CP.PCM.PN ---
<Katrin Burton - Last Filed: 01/10/17 01:05> Subjective - Date & Time of Evaluation Date of Evaluation: 01/10/17 Time of Evaluation: 01:05 - Subjective Subjective: PGY1 Medicine note for Dr. Antonio Patient seen and examined at bedside. Patient is AO x 1 to self. He denied any headaches, dizziness, chest pain, palpitations, SOB, cough, abdominal pain, nausea, vomiting, bowel/bladder complaints, pain in his legs. Earlier he was asking the nurse for some money. Patient gestures towards him and answers ROS questions appropriately. It is uncertain if patient understands hospital course. Scalp sony are c/d/i. Objective - Vital Signs/Intake and Output Vital Signs (last 24 hours): Temp Pulse Resp BP Pulse Ox 98.2 F 82 20 128/68 98 01/09/17 23:36 01/09/17 23:36 01/09/17 23:36 01/09/17 23:36 01/09/17 23:36 Intake and Output: 01/09/17 01/10/17 18:59 06:59 Intake Total 700 600 Output Total 400 400 Balance 300 200 - Medications Medications: Current Medications Docusate Sodium (Colace) 100 mg PO BID [facility] Last Admin: 01/09/17 17:43 Dose: 100 mg Famotidine (Pepcid) 20 mg PO BID [facility] Last Admin: 01/09/17 17:43 Dose: 20 mg Furosemide (Lasix) 20 mg PO BID [facility] Last Admin: 01/04/17 18:39 Dose: 20 mg Insulin Human Regular (Novolin R) 0 unit SC ACHS [facility] PRN Reason: Protocol Last Admin: 01/09/17 21:41 Dose: Not Given Rosuvastatin Calcium (Crestor) 20 mg PO HS [facility] Last Admin: 01/09/17 21:07 Dose: 20 mg Sodium Chloride (Sodium Chloride Tab) 2 gm PO TID [facility] Last Admin: 01/09/17 18:10 Dose: 2 gm - Labs Labs: 01/09/17 08:07 01/09/17 08:07 PT 12.2 SECONDS (9.7-12.2) 12/30/16 02:18 INR 1.1 12/30/16 02:18 APTT 27 SECONDS (21-34) 12/30/16 02:18 - Constitutional Appears: Non-toxic, No Acute Distress - Head Exam Additional comments: scalp sony in place - Eye Exam Eye Exam: Normal appearance. absent: Conjunctival injection, Scleral icterus - ENT Exam ENT Exam: Mucous Membranes Moist - Neck Exam Neck Exam: Normal Inspection - Respiratory Exam Respiratory Exam: Clear to Ausculation Bilateral, NORMAL BREATHING PATTERN. absent: Accessory Muscle Use, Rales, Rhonchi, Wheezes - Cardiovascular Exam Cardiovascular Exam: REGULAR RHYTHM, +S1, +S2 - GI/Abdominal Exam GI & Abdominal Exam: Soft, Normal Bowel Sounds. absent: Tenderness - Extremities Exam Extremities Exam: Normal Inspection. absent: Pedal Edema - Back Exam Back Exam: absent: rash noted - Neurological Exam Neurological Exam: Alert, Awake. absent: Oriented x3 - Psychiatric Exam Psychiatric exam: Normal Affect, Normal Mood - Skin Skin Exam: Dry, Intact, Normal Color, Warm Assessment and Plan - Assessment and Plan (Free Text) Assessment: 76 year old male PMHx of Hypertension, Hypercholesterolemia, DM2 who was found in the lobby having ataxic gait s/p craniotomy POD#11 Plan: Bilateral frontoparietal subdural hematomas left larger than right POD #11 * Consult: Neurosurgery (Dr. Gill) on board help appreciated * Consult: Neurology (Dr. Deshpande) on board help appreciated * Per 01/02-->neurosurgery note-->ok to mobilize and transfer to the floor * CT Head (01/01/17): status post insertion of extra-axial 2 bilateral frontal drainage catheters since prvious exam. Interval decrease in sixure of bilateral subdural hematomas, interval decrease in the size of the mass effect, effacement of the sulci, and left to right midline shift * Drains removed on 01/01/17. * Cytology: negative for malignant cells bilateral; granulation tissue and organizing blood clot * CT head (12/30/16): interval mild worsening of the left subdural hematoma since previous exam, mild worsening of the mass effect on the left brain and left to right midline shift, effacement of the basilar Systane , subfalcine and transtentorial herniation, left side should be considered * Per neurosurg, sony can be removed 10-13 days from procedure Bradycardia * resolved * Coreg and digoxin held due to blood pressure parameters * Heart rate in 90s * Held Lasix secondary to dehydration * EKG: sinus bradycardia and possible LBBB * Dig level low Hx of HTN * continue to monitor vital signs * Coreg and digoxin (held) with associated blood pressure parameters * Lasix held secondary to dehydration and clinically appearing dry * Lisinopril 20mg PO daily Constipation * Colace 100mg PO BID Hx of DM * [id number]: 6.8 * Low dose insulin sliding scale subq * Accuchecks * Crestor 20mg POqHS Electrolyte imbalance * Nephrology consulted help appreciated * Likely due to cerebral salt wasting * Sodium 129 this AM * urine NA 46, Urine OSM 719, Urine Microalbumin 71. * Hold lasix and continue IVF@75mls * started on salt tablets * replenish as needed PPX * SCDs * VTE ppx c/i secondary to bleed in brain * Pepcid 20mg PO BID * Reconsulted PT/OT for gait deconditoning * Consult: speech and swallow * Dispo: transfer to [facility] or [facility] * Will have sony removed 01/[address] Marisela Burton PGY1 <Abimbola Antonio V - Last Filed: 01/10/17 12:41> Objective - Vital Signs/Intake and Output Vital Signs (last 24 hours): Temp Pulse Resp BP Pulse Ox 98.9 F 89 20 133/76 99 01/10/17 07:00 01/10/17 07:00 01/10/17 07:00 01/10/17 07:00 01/10/17 07:00 Intake and Output: 01/10/17 01/10/17 06:59 18:59 Intake Total 600 Output Total 400 Balance 200 - Medications Medications: Current Medications Docusate Sodium (Colace) 100 mg PO BID [facility] Last Admin: 01/10/17 09:15 Dose: 100 mg Famotidine (Pepcid) 20 mg PO BID [facility] Last Admin: 01/10/17 09:15 Dose: 20 mg Furosemide (Lasix) 20 mg PO BID [facility] Last Admin: 01/04/17 18:39 Dose: 20 mg Insulin Human Regular (Novolin R) 0 unit SC ACHS [facility] PRN Reason: Protocol Last Admin: 01/10/17 11:27 Dose: 2 unit Rosuvastatin Calcium (Crestor) 20 mg PO HS [facility] Last Admin: 01/09/17 21:07 Dose: 20 mg Sodium Chloride (Sodium Chloride Tab) 2 gm PO TID [facility] Last Admin: 01/10/17 09:16 Dose: 2 gm - Labs Labs: 01/10/17 08:12 01/10/17 08:12 PT 12.2 SECONDS (9.7-12.2) 12/30/16 02:18 INR 1.1 12/30/16 02:18 APTT 27 SECONDS (21-34) 12/30/16 02:18 Attending/Attestation - Attestation I have personally seen and examined this patient.: Yes I have fully participated in the care of the patient.: Yes I have reviewed all pertinent clinical information, including history, physical exam and plan: Yes Notes (Text): Patient seen, examined and case discussed with day-time resident. Patient is awake, alert, no acute distress. Patient able to state his name, recall the name of the president, and conversant in Greek. Discussed with nephrology, patient to continue salt tablets. Discussed with case management, patient is pending authorization to follow-up for Wednesday for LTAC facility Patient has an elevated PSA, Renal US is negative for mass. Urine collected for urine culture. Discontinue squires to monitor for trial of void. 1) Bilateral frontoparietal subdural hematoma * Consult: Neurosurgery (Dr. Gill) on board help appreciated * Consult: Neurology (Dr. Deshpande) on board help appreciated * Per 01/02-->neurosurgery note-->ok to mobilize and transfer to the floor * CT Head (01/01/17): status post insertion of extra-axial 2 bilateral frontal drainage catheters since prvious exam. Interval decrease in sixure of bilateral subdural hematomas, interval decrease in the size of the mass effect, effacement of the sulci, and left to right midline shift * Drains removed on 01/01/17. * Cytology: negative for malignant cells bilateral; granulation tissue and organizing blood clot * CT head (12/30/16): interval mild worsening of the left subdural hematoma since previous exam, mild worsening of the mass effect on the left brain and left to right midline shift, effacement of the basilar Systane , subfalcine and transtentorial herniation, left side should be considered 2) Bradycardia * Resolved * Off anti-hypertensives * Monitor 3) Hypertension * off anti-hypertensives * monitor vital signs 4) Constipation * Colace 100mg PO BID 5) Diabetes type 2 * [id number]: 6.8 * Low dose insulin sliding scale subq * Accuchecks QAC and HS * Crestor 20mg POqHS 6) Hyponatremia * 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 Dagmar Read) on board * Continue sodium tablets * Blood pressure improved compared to yesterday 7) Hematuria * Renal US (01/10/17): no evidence of hydronephrosis, or nephrolithaisis in the study. 2 cc cyst in the upper pole of right kidney. * PSA elevated * Ordered for urine culture in light left shift on CBC r/o UTI * Discontinue Squires; monitor trial to void 8) PPX * SCDs * VTE ppx c/i secondary to bleed in brain * Pepcid 20mg PO BID * Reconsult PT/OT for gait deconditoning * Consult: speech and swallow * KACY cole 9) Disposition * Patient is pending authorization for LTAC * Patient will need sony removed by Wednesday
[2017-01-10] MEDS: (Novolin R) Insulin Human Regular 100 units/ml vial SC SCH ×4 (08:15→21:14)
[2017-01-10 08:28] LABS: BASO % 0.3 % (0.0-2.0); EOS % 0.4 % (0.0-4.0); HEMATOCRIT 36.2 % (35.0-51.0); LYMPH # 0.9 K/uL (1.0-4.3); LYMPH % 8.2 % (20.0-40.0); MEAN CELL VOLUME 91.1 fL (80.0-94.0); MEAN CORPUSCULAR HEMOGLOBIN 30.7 pg (27.0-31.0); MEAN CORPUSCULAR HGB CONC 33.7 g/dL (33.0-37.0); MEAN PLATELET VOLUME 8.2 fL (7.2-11.7); MONO # 0.9 K/uL (0.0-0.8); MONO % 8.3 % (0.0-10.0); PLATELET COUNT 332 K/uL (130-400); RED CELL DISTRIBUTION WIDTH 14.1 % (11.5-14.5); WHITE BLOOD COUNT 10.8 K/uL (4.8-10.8)
[2017-01-10 08:39] LABS: CHLORIDE 93 mmol/L (98-107); SODIUM 131 mmol/L (132-148)
[2017-01-10 08:40] LABS: POTASSIUM 4.3 mmol/L (3.6-5.2)
[2017-01-10 08:42] LABS: ALB/GLOB RATIO 0.8 (1.0-2.1); ALKALINE PHOSPHATASE 107 U/L (38-126); AST/SGOT 43 U/L (17-59); BILIRUBIN,TOTAL 0.8 mg/dL (0.2-1.3); BLOOD UREA NITROGEN 18 mg/dL (9-20); CARBON DIOXIDE 28 mmol/L (22-30); GFR AFRICAN-AMERICAN > 60; GLUCOSE,RANDOM 162 mg/dL (75-110); PHOSPHOROUS 4.2 mg/dL (2.5-4.5); TOTAL PROTEIN 6.7 g/dL (6.3-8.3)
[2017-01-10 08:43] LABS: ALT/SGPT 38 U/L (21-72); CALCIUM 8.5 mg/dl (8.6-10.4); MAGNESIUM 2.3 mg/dL (1.6-2.3)
[2017-01-10 11:07] LABS: BASOPHIL 1 % (0-2); NEUTROPHIL 81 % (50-75); TOTAL CELLS COUNTED 100
[2017-01-10 11:09] LABS: GIANT PLATELETS PRESENT; LARGE PLATELETS PRESENT
--- NOTE | 2017-01-10 11:36 | US ---
PROCEDURE: Ultrasound of the Kidneys HISTORY: hematuria COMPARISON: None available. TECHNIQUE: Sonogram of the kidneys. FINDINGS: RIGHT KIDNEY: Measures: 10 x 4.4 x 5.2 cm. Normal in size, contour and echogenicity. No stone, solid mass lesion or hydronephrosis visualized. 1.4 x 1.7 x 2 centimeters cyst seen at the upper pole of the right kidney. LEFT KIDNEY: Measures: 9.4 x 5.7 x 5.4 cm. Normal in size, contour and echogenicity. No stone, solid mass lesion or hydronephrosis visualized. OTHER FINDINGS: De Dios catheter seen in the bladder. IMPRESSION: No evidence of hydronephrosis or nephrolithiasis in this study. 2 centimeter cyst seen at the upper pole of the right kidney. If clinically warranted further assessment by CT or MRI may be obtained.
--- NOTE | 2017-01-10 23:54 | CP.PCM.PN ---
Subjective - Date & Time of Evaluation Date of Evaluation: 01/08/17 Time of Evaluation: 22:00 - Subjective Subjective: Tolerating diet; Objective - Vital Signs/Intake and Output Vital Signs (last 24 hours): Temp Pulse Resp BP Pulse Ox 98.1 F 106 H 20 137/76 97 01/10/17 15:00 01/10/17 15:00 01/10/17 15:00 01/10/17 15:00 01/10/17 15:00 Intake and Output: 01/10/17 01/11/17 18:59 06:59 Intake Total 480 250 Output Total 700 Balance -220 250 - Medications Medications: Current Medications Docusate Sodium (Colace) 100 mg PO BID [facility] Last Admin: 01/10/17 17:41 Dose: 100 mg Famotidine (Pepcid) 20 mg PO BID [facility] Last Admin: 01/10/17 17:42 Dose: 20 mg Furosemide (Lasix) 20 mg PO BID [facility] Last Admin: 01/04/17 18:39 Dose: 20 mg Insulin Human Regular (Novolin R) 0 unit SC ACHS [facility] PRN Reason: Protocol Last Admin: 01/10/17 21:14 Dose: Not Given Rosuvastatin Calcium (Crestor) 20 mg PO HS [facility] Last Admin: 01/10/17 21:14 Dose: 20 mg Sodium Chloride (Sodium Chloride Tab) 2 gm PO TID [facility] Last Admin: 01/10/17 17:42 Dose: 2 gm - Labs Labs: 01/10/17 08:12 01/10/17 08:12 PT 12.2 SECONDS (9.7-12.2) 12/30/16 02:18 INR 1.1 12/30/16 02:18 APTT 27 SECONDS (21-34) 12/30/16 02:18 - Constitutional Appears: No Acute Distress Assessment and Plan (1) Hyponatremia Status: Acute (2) Subdural hematoma Status: Acute (3) Hypotension Status: Acute
[2017-01-11] MEDS: (Novolin R) Insulin Human Regular 100 units/ml vial SC SCH ×4 (08:01→22:58)
[2017-01-11 08:32] LABS: BASO % 0.2 % (0.0-2.0); EOS # 0.1 K/uL (0.0-0.7); EOS % 0.7 % (0.0-4.0); HEMATOCRIT 36.1 % (35.0-51.0); LYMPH # 1.1 K/uL (1.0-4.3); LYMPH % 9.5 % (20.0-40.0); MEAN CORPUSCULAR HEMOGLOBIN 30.3 pg (27.0-31.0); MEAN PLATELET VOLUME 8.2 fL (7.2-11.7); MONO # 0.8 K/uL (0.0-0.8); MONO % 7.6 % (0.0-10.0); PLATELET COUNT 351 K/uL (130-400); RED CELL DISTRIBUTION WIDTH 14.1 % (11.5-14.5); WHITE BLOOD COUNT 11.2 K/uL (4.8-10.8)
[2017-01-11 08:48] LABS: CHLORIDE 93 mmol/L (98-107)
[2017-01-11 08:49] LABS: POTASSIUM 4.1 mmol/L (3.6-5.2); SODIUM 131 mmol/L (132-148)
[2017-01-11 08:50] LABS: GFR AFRICAN-AMERICAN > 60
[2017-01-11 08:51] LABS: ALB/GLOB RATIO 0.8 (1.0-2.1); ALKALINE PHOSPHATASE 107 U/L (38-126); ALT/SGPT 45 U/L (21-72); AST/SGOT 47 U/L (17-59); BILIRUBIN,TOTAL 0.8 mg/dL (0.2-1.3); BLOOD UREA NITROGEN 19 mg/dL (9-20); CARBON DIOXIDE 28 mmol/L (22-30); GLUCOSE,RANDOM 161 mg/dL (75-110)
[2017-01-11 08:52] LABS: CALCIUM 8.7 mg/dl (8.6-10.4); MAGNESIUM 2.2 mg/dL (1.6-2.3)
[2017-01-11 09:28] LABS: EOSINOPHIL 3 % (0-4); NEUTROPHIL 83 % (50-75); TOTAL CELLS COUNTED 100
--- NOTE | 2017-01-11 15:58 | CP.PCM.PN ---
<Noah Castle - Last Filed: 01/11/17 15:56> Subjective - Date & Time of Evaluation Date of Evaluation: 01/11/17 Time of Evaluation: 07:10 - Subjective Subjective: Dr. Castle PGY 1 Hospitalist Note Patient seen and evaluated at bedside. He is resting comfortably in bed. He is alert and oriented and answers questions appropriately. He deneis any chest pain , headache, SOB, fever, or chills. Per nursing, no adverse events over night. Objective - Vital Signs/Intake and Output Vital Signs (last 24 hours): Temp Pulse Resp BP Pulse Ox 98.0 F 94 H 20 115/71 99 01/11/17 08:00 01/11/17 08:00 01/11/17 08:00 01/11/17 08:00 01/11/17 08:00 Intake and Output: 01/11/17 01/11/17 06:59 18:59 Intake Total 250 Balance 250 - Medications Medications: Current Medications Docusate Sodium (Colace) 100 mg PO BID [facility] Last Admin: 01/11/17 10:17 Dose: 100 mg Famotidine (Pepcid) 20 mg PO BID [facility] Last Admin: 01/11/17 10:17 Dose: 20 mg Furosemide (Lasix) 20 mg PO BID [facility] Last Admin: 01/04/17 18:39 Dose: 20 mg Insulin Human Regular (Novolin R) 0 unit SC ACHS [facility] PRN Reason: Protocol Last Admin: 01/11/17 12:15 Dose: 2 unit Rosuvastatin Calcium (Crestor) 20 mg PO HS [facility] Last Admin: 01/10/17 21:14 Dose: 20 mg Sodium Chloride (Sodium Chloride Tab) 2 gm PO TID [facility] Last Admin: 01/11/17 13:13 Dose: 2 gm - Labs Labs: 01/11/17 08:22 01/11/17 08:22 PT 12.2 SECONDS (9.7-12.2) 12/30/16 02:18 INR 1.1 12/30/16 02:18 APTT 27 SECONDS (21-34) 12/30/16 02:18 - Constitutional Appears: Non-toxic, No Acute Distress - Head Exam Head Exam: NORMOCEPHALIC. absent: ATRAUMATIC (sutures and sony in place) - Eye Exam Eye Exam: EOMI, Normal appearance, PERRL Pupil Exam: NORMAL ACCOMODATION, PERRL - ENT Exam ENT Exam: Mucous Membranes Moist, Normal Oropharynx - Neck Exam Neck Exam: Normal Inspection - Respiratory Exam Respiratory Exam: Clear to Ausculation Bilateral, NORMAL BREATHING PATTERN. absent: Rales, Rhonchi, Wheezes - Cardiovascular Exam Cardiovascular Exam: REGULAR RHYTHM, +S1, +S2. absent: Gallop, Rubs, Murmur - GI/Abdominal Exam GI & Abdominal Exam: Soft, Normal Bowel Sounds. absent: Distended, Tenderness - Extremities Exam Extremities Exam: absent: Normal Inspection (bilateral leg contraction), Pedal Edema, Tenderness - Back Exam Back Exam: NORMAL INSPECTION. absent: rash noted, tenderness - Neurological Exam Neurological Exam: Alert, Awake, CN II-XII Intact, Oriented x3 - Psychiatric Exam Psychiatric exam: Normal Affect, Normal Mood - Skin Skin Exam: Dry, Intact, Normal Color, Warm Assessment and Plan - Assessment and Plan (Free Text) Assessment: 76 year old male PMHx of Hypertension, Hypercholesterolemia, DM2 who was found in the lobby having ataxic gait s/p craniotomy POD#12 Plan: Bilateral frontoparietal subdural hematomas left larger than right POD #12 * Consult: Neurosurgery (Dr. Gill) on board help appreciated * Consult: Neurology (Dr. Deshpande) on board help appreciated * Per 01/02-->neurosurgery note-->ok to mobilize and transfer to the floor * CT Head (01/01/17): status post insertion of extra-axial 2 bilateral frontal drainage catheters since prvious exam. Interval decrease in sixure of bilateral subdural hematomas, interval decrease in the size of the mass effect, effacement of the sulci, and left to right midline shift * Drains removed on 01/01/17. * Cytology: negative for malignant cells bilateral; granulation tissue and organizing blood clot * CT head (12/30/16): interval mild worsening of the left subdural hematoma since previous exam, mild worsening of the mass effect on the left brain and left to right midline shift, effacement of the basilar Systane , subfalcine and transtentorial herniation, left side should be considered * Per neurosurg, sony can be removed today Bradycardia * resolved * Coreg and digoxin held due to blood pressure parameters * Heart rate in 90s * Held Lasix secondary to dehydration * EKG: sinus bradycardia and possible LBBB * Dig level low Hx of HTN * continue to monitor vital signs * Coreg and digoxin (held) with associated blood pressure parameters * Lasix held secondary to dehydration and clinically appearing dry * Lisinopril 20mg PO daily Constipation * Colace 100mg PO BID Hx of DM * [id number]: 6.8 * Low dose insulin sliding scale subq * Accuchecks * Crestor 20mg POqHS Electrolyte imbalance * Nephrology consulted help appreciated * 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 * Hold lasix * Patient tolerating diet, hold IVF * continue salt tablets * replenish as needed PPX * SCDs * VTE ppx c/i secondary to bleed in brain * Pepcid 20mg PO BID * Reconsulted PT/OT for gait deconditoning * Consult: speech and swallow * Dispo: transfer to [facility] or [facility] * Staple sto be removed today. Assessment and plan discussed with attending physician. <Michael Garzon H - Last Filed: 01/11/17 17:32> Objective - Vital Signs/Intake and Output Vital Signs (last 24 hours): Temp Pulse Resp BP Pulse Ox 97.5 F L 84 20 137/77 97 01/11/17 16:00 01/11/17 16:00 01/11/17 16:00 01/11/17 16:00 01/11/17 16:00 Intake and Output: 01/11/17 01/11/17 06:59 18:59 Intake Total 250 Balance 250 - Medications Medications: Current Medications Docusate Sodium (Colace) 100 mg PO BID [facility] Last Admin: 01/11/17 17:19 Dose: 100 mg Famotidine (Pepcid) 20 mg PO BID [facility] Last Admin: 01/11/17 17:19 Dose: 20 mg Furosemide (Lasix) 20 mg PO BID [facility] Last Admin: 01/04/17 18:39 Dose: 20 mg Insulin Human Regular (Novolin R) 0 unit SC ACHS [facility] PRN Reason: Protocol Last Admin: 01/11/17 17:08 Dose: Not Given Rosuvastatin Calcium (Crestor) 20 mg PO HS [facility] Last Admin: 01/10/17 21:14 Dose: 20 mg Sodium Chloride (Sodium Chloride Tab) 2 gm PO TID [facility] Last Admin: 01/11/17 17:19 Dose: 2 gm - Labs Labs: 01/11/17 08:22 01/11/17 08:22 PT 12.2 SECONDS (9.7-12.2) 12/30/16 02:18 INR 1.1 12/30/16 02:18 APTT 27 SECONDS (21-34) 12/30/16 02:18 Attending/Attestation - Attestation I have personally seen and examined this patient.: Yes I have fully participated in the care of the patient.: Yes I have reviewed all pertinent clinical information, including history, physical exam and plan: Yes Notes (Text): 01/11/17 17:26 Medical Attending: Patient was seen and examined by me. Agree with the above note by the resident. The patient was not in any acute distress He did follow some basic commands in [place]. At this time we are pending on jail placement to be decided. thank you Michael Garzon
--- NOTE | 2017-01-12 07:14 | PN ---
DATE: 01/11/2017 This is an 76-year-old male with past medical history of hypertension and diabetes, admitted with sulma ateral subdural hematomas, now status post evacuation of the hematoma via craniotomy. Nephrology fol lowing patient for hyponatremia. The patient denies any complaints, denies any shortness of breath or pain. Per nursing staff, tolera ting diet well. PHYSICAL EXAMINATION: VITAL SIGNS: This morning, blood pressure 115/71, heart rate 94, respirations 20, temperature 98.0, O2 sat 99% on 2 liters O2 via nasal cannula. GENERAL: No distress. HEENT: Moist mucous membranes. Bilateral craniotomy wounds dry and clean. CHEST: Marked left basal rales; otherwise clear to auscultation bilaterally. HEART: S1, S2, normal. No murmurs, no rubs, no gallops. GASTROINTESTINAL: Abdomen soft, nontender, nondistended. GENITOURINARY: Bladder nondistended. EXTREMITIES: Very mild leg edema. SKIN: Warm. No cyanosis. LABORATORY DATA: This morning. CBC: WBC 11.2, hemoglobin 11.9, hematocrit 36.1, platelets 351. Ch emistry panel: Sodium 131, potassium 4.1, chloride 93, bicarb 28, BUN 19, creatinine 0.7, glucose 16 1, calcium 8.7, phosphorus 4.0, albumin 3.1. Urine sodium from 2 days ago 95. Urine osmolality 752. ASSESSMENT: 1. 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 The patient currently on salt tabs 2 grams t.i.d. Recommend to continue the same fl uid restriction also to less than 1500 mL per day. 2. Hypertension. The patient is normotensive despite being off blood pressure medications and being on salt tablets which is consistent with his diagnosis of cerebral salt wasting. Recommend to марина figueroa to hold blood pressure medications. 3. Subdural hematoma, likely the cause of patient's cerebral salt wasting which is a condition that is generally thought to be self-limited. Continue to follow up with nephrology recommendations. 4. Marck Guzman MD cc: [id number] TT: 01/11/2017 23:09:59 Confirmation # [id number] Dictation # [id number] mn
[2017-01-12] MEDS: (Novolin R) Insulin Human Regular 100 units/ml vial SC SCH ×4 (07:47→21:45)
[2017-01-12 09:00] LABS: CHLORIDE 94 mmol/L (98-107); HEMATOCRIT 35.5 % (35.0-51.0); MEAN CELL VOLUME 91.2 fL (80.0-94.0); MEAN CORPUSCULAR HEMOGLOBIN 30.7 pg (27.0-31.0); MEAN CORPUSCULAR HGB CONC 33.7 g/dL (33.0-37.0); MEAN PLATELET VOLUME 8.3 fL (7.2-11.7); POTASSIUM 4.2 mmol/L (3.6-5.2); SODIUM 131 mmol/L (132-148); WHITE BLOOD COUNT 9.9 K/uL (4.8-10.8)
[2017-01-12 09:03] LABS: CARBON DIOXIDE 29 mmol/L (22-30); GFR AFRICAN-AMERICAN > 60
[2017-01-12 09:04] LABS: BLOOD UREA NITROGEN 18 mg/dL (9-20); CALCIUM 8.5 mg/dl (8.6-10.4); GLUCOSE,RANDOM 166 mg/dL (75-110)
--- NOTE | 2017-01-12 18:36 | CP.PCM.PN ---
<Noah Castle - Last Filed: 01/12/17 18:33> Subjective - Date & Time of Evaluation Date of Evaluation: 01/12/17 Time of Evaluation: 07:15 - Subjective Subjective: Hospitalist Note- Dr. Garzon's service Patient seen and evaluated at bedside. He is sitting up and smiling this morning. He was able to give me his name, year, and president. He denies any pain where the sony were removed. He does have pain when extending his legs. He denies any abdominal pain, headache, nausea, fever, chills, chest pain, or SOB. Per nursing, no adverse events over night. Objective - Vital Signs/Intake and Output Vital Signs (last 24 hours): Temp Pulse Resp BP Pulse Ox 97.4 F L 95 H 20 121/73 100 01/12/17 15:00 01/12/17 15:00 01/12/17 15:00 01/12/17 15:00 01/12/17 15:00 Intake and Output: 01/12/17 01/12/17 06:59 18:59 Intake Total 600 800 Output Total 1100 900 Balance -500 -100 - Medications Medications: Current Medications Docusate Sodium (Colace) 100 mg PO BID [facility] Last Admin: 01/12/17 17:52 Dose: 100 mg Famotidine (Pepcid) 20 mg PO BID [facility] Last Admin: 01/12/17 17:52 Dose: 20 mg Furosemide (Lasix) 20 mg PO BID [facility] Last Admin: 01/04/17 18:39 Dose: 20 mg Insulin Human Regular (Novolin R) 0 unit SC ACHS [facility] PRN Reason: Protocol Last Admin: 01/12/17 16:55 Dose: 2 unit Rosuvastatin Calcium (Crestor) 20 mg PO HS [facility] Last Admin: 01/11/17 21:15 Dose: 20 mg Sodium Chloride (Sodium Chloride Tab) 2 gm PO TID [facility] Last Admin: 01/12/17 17:52 Dose: 2 gm - Labs Labs: 01/12/17 08:42 01/12/17 08:42 PT 12.2 SECONDS (9.7-12.2) 12/30/16 02:18 INR 1.1 12/30/16 02:18 APTT 27 SECONDS (21-34) 12/30/16 02:18 - Constitutional Appears: Non-toxic, No Acute Distress - Head Exam Head Exam: NORMOCEPHALIC. absent: ATRAUMATIC (well healing suture lines) - Eye Exam Eye Exam: EOMI, Normal appearance, PERRL Pupil Exam: NORMAL ACCOMODATION, PERRL - ENT Exam ENT Exam: Mucous Membranes Moist. absent: Normal Oropharynx (poor dentition) - Respiratory Exam Respiratory Exam: Clear to Ausculation Bilateral, NORMAL BREATHING PATTERN. absent: Rales, Rhonchi, Wheezes - Cardiovascular Exam Cardiovascular Exam: REGULAR RHYTHM, +S1, +S2. absent: Gallop, Rubs, Murmur - GI/Abdominal Exam GI & Abdominal Exam: Soft, Normal Bowel Sounds. absent: Tenderness - Extremities Exam Extremities Exam: Normal Capillary Refill. absent: Normal Inspection ( difficulty extending both legs), Pedal Edema - Back Exam Back Exam: NORMAL INSPECTION. absent: rash noted, tenderness - Neurological Exam Neurological Exam: Alert, Awake, CN II-XII Intact, Oriented x3 - Psychiatric Exam Psychiatric exam: Normal Affect, Normal Mood - Skin Skin Exam: Dry, Intact, Normal Color, Warm Assessment and Plan - Assessment and Plan (Free Text) Assessment: 76 year old male PMHx of Hypertension, Hypercholesterolemia, DM2 who was found in the lobby having ataxic gait s/p craniotomy POD#13 Plan: Bilateral frontoparietal subdural hematomas left larger than right POD #13 * Consult: Neurosurgery (Dr. Gill) on board help appreciated * Consult: Neurology (Dr. Deshpande) on board help appreciated * Per 01/02-->neurosurgery note-->ok to mobilize and transfer to the floor * CT Head (01/01/17): status post insertion of extra-axial 2 bilateral frontal drainage catheters since prvious exam. Interval decrease in sixure of bilateral subdural hematomas, interval decrease in the size of the mass effect, effacement of the sulci, and left to right midline shift * Drains removed on 01/01/17. * Cytology: negative for malignant cells bilateral; granulation tissue and organizing blood clot * CT head (12/30/16): interval mild worsening of the left subdural hematoma since previous exam, mild worsening of the mass effect on the left brain and left to right midline shift, effacement of the basilar Systane , subfalcine and transtentorial herniation, left side should be considered * Grygla removed-wounds healing well Bradycardia * resolved * Coreg and digoxin held due to blood pressure parameters * Heart rate in 90s * Held Lasix secondary to dehydration * EKG: sinus bradycardia and possible LBBB * Dig level low Hx of HTN * continue to monitor vital signs * Coreg and digoxin (held) with associated blood pressure parameters * Lasix held secondary to dehydration and clinically appearing dry * Lisinopril 20mg PO daily Constipation * Colace 100mg PO BID Hx of DM * [id number]: 6.8 * Low dose insulin sliding scale subq * Accuchecks * Crestor 20mg POqHS Electrolyte imbalance * Nephrology consulted help appreciated * 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 * Hold lasix * Patient tolerating diet * continue salt tablets * replenish as needed PPX * SCDs * VTE ppx c/i secondary to bleed in brain * Pepcid 20mg PO BID * Reconsulted PT/OT for gait deconditoning * Consult: speech and swallow * Dispo: transfer to [facility] or [facility] Assessment and plan discussed with attending physician. <Michael Garzon H - Last Filed: 01/12/17 18:42> Objective - Vital Signs/Intake and Output Vital Signs (last 24 hours): Temp Pulse Resp BP Pulse Ox 97.4 F L 95 H 20 121/73 100 01/12/17 15:00 01/12/17 15:00 01/12/17 15:00 01/12/17 15:00 01/12/17 15:00 Intake and Output: 01/12/17 01/12/17 06:59 18:59 Intake Total 600 800 Output Total 1100 900 Balance -500 -100 - Medications Medications: Current Medications Docusate Sodium (Colace) 100 mg PO BID [facility] Last Admin: 01/12/17 17:52 Dose: 100 mg Famotidine (Pepcid) 20 mg PO BID [facility] Last Admin: 01/12/17 17:52 Dose: 20 mg Furosemide (Lasix) 20 mg PO BID [facility] Last Admin: 01/04/17 18:39 Dose: 20 mg Insulin Human Regular (Novolin R) 0 unit SC ACHS [facility] PRN Reason: Protocol Last Admin: 01/12/17 16:55 Dose: 2 unit Rosuvastatin Calcium (Crestor) 20 mg PO HS [facility] Last Admin: 01/11/17 21:15 Dose: 20 mg Sodium Chloride (Sodium Chloride Tab) 2 gm PO TID [facility] Last Admin: 01/12/17 17:52 Dose: 2 gm - Labs Labs: 01/12/17 08:42 01/12/17 08:42 PT 12.2 SECONDS (9.7-12.2) 12/30/16 02:18 INR 1.1 12/30/16 02:18 APTT 27 SECONDS (21-34) 12/30/16 02:18 Attending/Attestation - Attestation I have personally seen and examined this patient.: Yes I have fully participated in the care of the patient.: Yes I have reviewed all pertinent clinical information, including history, physical exam and plan: Yes
[2017-01-12 23:31] VITALS: O2SAT 97
--- NOTE | 2017-01-13 02:04 | PN ---
DATE: 01/12/2017 NEPHROLOGY FOLLOWUP NOTE A 76-year-old male with past medical history of hypertension and diabetes, admitted with bilateral escamilla bdural hematomas, now status post evacuation of the hematomas via craniotomies. Nephrology is follow ing the patient for hyponatremia. The patient denies any complaints, denies any shortness of breath or pain. Per nursing staff, tolera ting diet well. PHYSICAL EXAMINATION: VITAL SIGNS: This morning, blood pressure 125/69, heart rate 98, respirations 20, O2 sat 97% via jaren al cannula, temperature 98.7. GENERAL: In no distress, able to answer questions appropriately. HEENT: Moist mucous membranes, nonicteric. CHEST: Clear to auscultation on the left, marked rales present on right. No respiratory distress. HEART: S1, S2 normal, no murmurs, no rubs, no gallops. GASTROINTESTINAL: Abdomen soft, nontender, nondistended. GENITOURINARY: Bladder nondistended. EXTREMITIES: No leg edema. SKIN: Warm, no cyanosis. PSYCHIATRIC: Normal mood, normal affect. LABORATORY DATA: This morning, WBC 9.9, hemoglobin 11.9, hematocrit 35.5, platelets 399. Chemistry: Sodium 131, potassium 4.2, chloride 94, bicarb 29, BUN 18, creatinine 0.7, glucose 166, and calcium 8.5. ASSESSMENT: 1. 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 The patient currently on salt tabs, sodium chloride 2 grams t.i.d. Recommend to continue the s laura until we see the patient's blood pressure start to get elevated. At that point, should decrease and then stop. Recommend to continue fluid restriction to less than 1500 mL per day. 2. Hypertension. The patient currently normotensive despite being off blood pressure meds while vinh ng on salt tablets, which is consistent with his diagnosis of cerebral salt wasting. Recommend to co yelitza to hold blood pressure medications for now. Continue to monitor blood pressure carefully. 3. Subdural hematoma. Likely the cause of the patient's cerebral salt wasting, which is a condition that is generally thought to be self-limited. Continue to follow with you neurology/neurosurgery re commendations. 4. Microscopic hematuria. Likely due to De Dios trauma. Recommend to repeat UA after De Dios removed. Nephrology service will sign off. Thank you for this consultation. Please free to call us back for any questions or concerns. Marck Guzman MD cc: [id number] TT: 01/13/2017 01:17:06 Confirmation # [id number] Dictation # [id number] vn
[2017-01-13 07:45] LABS: HEMATOCRIT 35.5 % (35.0-51.0); MEAN CELL VOLUME 91.1 fL (80.0-94.0); MEAN CORPUSCULAR HGB CONC 34.1 g/dL (33.0-37.0); MEAN PLATELET VOLUME 8.1 fL (7.2-11.7); RED CELL DISTRIBUTION WIDTH 13.9 % (11.5-14.5); WHITE BLOOD COUNT 10.6 K/uL (4.8-10.8)
[2017-01-13 07:53] LABS: CHLORIDE 92 mmol/L (98-107)
[2017-01-13 07:54] LABS: POTASSIUM 4.4 mmol/L (3.6-5.2); SODIUM 130 mmol/L (132-148)
[2017-01-13 07:56] LABS: GFR AFRICAN-AMERICAN > 60
[2017-01-13 07:57] LABS: BLOOD UREA NITROGEN 18 mg/dL (9-20); CALCIUM 8.6 mg/dl (8.6-10.4); CARBON DIOXIDE 30 mmol/L (22-30); GLUCOSE,RANDOM 170 mg/dL (75-110)
[2017-01-13] MEDS: (Novolin R) Insulin Human Regular 100 units/ml vial SC SCH ×4 (07:59→22:05)
[2017-01-13 15:26] VITALS: BP 130/75; PULSE 108; RESP 20; TEMP 98
--- NOTE | 2017-01-13 17:09 | CP.PCM.DIS ---
<Noah Castle - Last Filed: 01/13/17 17:05> Provider - Provider Date of Admission: 12/29/16 14:33 Attending physician: Michael Garzon DO Consults: Dr. Marck Deshpande Time Spent in preparation of Discharge (in minutes): 35 Hospital Course - Lab Results Lab Results: Micro Results 01/10/17 Unknown Urine,De Dios Urine Culture - Final No Growth (<1,000 CFU/ML) 01/05/17 08:54 Naris MRSA Culture (Admit) - Final MRSA NOT DETECTED 12/30/16 19:00 Naris MRSA Culture (Admit) - Final MRSA NOT DETECTED Most Recent Lab Values WBC 10.6 K/uL (4.8-10.8) 01/13/17 07:31 RBC 3.90 Mil/uL (4.40-5.90) L 01/13/17 07:31 Hgb 12.1 g/dL (12.0-18.0) 01/13/17 07:31 Hct 35.5 % (35.0-51.0) 01/13/17 07:31 MCV 91.1 fL (80.0-94.0) 01/13/17 07:31 MCH 31.0 pg (27.0-31.0) 01/13/17 07:31 MCHC 34.1 g/dL (33.0-37.0) 01/13/17 07:31 RDW 13.9 % (11.5-14.5) 01/13/17 07:31 Plt Count 395 K/uL (130-400) 01/13/17 07:31 MPV 8.1 fL (7.2-11.7) 01/13/17 07:31 Neut % (Auto) 82.0 % (50.0-75.0) H 01/11/17 08:22 Lymph % (Auto) 9.5 % (20.0-40.0) L 01/11/17 08:22 Wilson % (Auto) 7.6 % (0.0-10.0) 01/11/17 08:22 Eos % (Auto) 0.7 % (0.0-4.0) 01/11/17 08:22 Baso % (Auto) 0.2 % (0.0-2.0) 01/11/17 08:22 Neut # 9.1 K/uL (1.8-7.0) H 01/11/17 08:22 Lymph # 1.1 K/uL (1.0-4.3) 01/11/17 08:22 Wilson # 0.8 K/uL (0.0-0.8) 01/11/17 08:22 Eos # 0.1 K/uL (0.0-0.7) 01/11/17 08:22 Baso # 0.0 K/uL (0.0-0.2) 01/11/17 08:22 Neutrophils % (Manual) 83 % (50-75) H 01/11/17 08:22 Lymphocytes % (Manual) 10 % (20-40) L 01/11/17 08:22 Monocytes % (Manual) 4 % (0-10) 01/11/17 08:22 Eosinophils % (Manual) 3 % (0-4) 01/11/17 08:22 Basophils % (Manual) 1 % (0-2) 01/10/17 08:12 Platelet Estimate Normal (NORMAL) 01/11/17 08:22 Large Platelets Present 01/10/17 08:12 Giant Platelets Present 01/10/17 08:12 RBC Morphology Normal 01/04/17 08:15 Hypochromasia (manual) Slight 01/11/17 08:22 Poikilocytosis (manual Slight 01/11/17 08:22 Anisocytosis (manual) Slight 01/11/17 08:22 PT 12.2 SECONDS (9.7-12.2) 12/30/16 02:18 INR 1.1 12/30/16 02:18 APTT 27 SECONDS (21-34) 12/30/16 02:18 Sodium 130 mmol/L (132-148) L 01/13/17 07:31 Potassium 4.4 mmol/L (3.6-5.2) 01/13/17 07:31 Chloride 92 mmol/L (98-107) L 01/13/17 07:31 Carbon Dioxide 30 mmol/L (22-30) 01/13/17 07:31 Anion Gap 12 (10-20) 01/13/17 07:31 BUN 18 mg/dL (9-20) 01/13/17 07:31 Creatinine 0.7 MG/DL (0.8-1.5) L 01/13/17 07:31 Est GFR ( Amer) > 60 01/13/17 07:31 Est GFR (Non-Af Amer) > 60 01/13/17 07:31 POC Glucose (mg/dL) 293 mg/dL (65-110) H 01/13/17 16:27 Random Glucose 170 mg/dL (75-110) H 01/13/17 07:31 Hemoglobin A1c 6.8 % (4.2-6.5) H 12/29/16 13:20 Serum Osmolality 286 mosm/kg (272-300) 01/05/17 06:04 Uric Acid 5.8 mg/dL (3.5-8.5) 01/05/17 06:04 Calcium 8.6 mg/dl (8.6-10.4) 01/13/17 07:31 Phosphorus 4.0 mg/dL (2.5-4.5) 01/11/17 08:22 Magnesium 2.2 mg/dL (1.6-2.3) 01/11/17 08:22 Total Bilirubin 0.8 mg/dL (0.2-1.3) 01/11/17 08:22 AST 47 U/L (17-59) 01/11/17 08:22 ALT 45 U/L (21-72) 01/11/17 08:22 Alkaline Phosphatase 107 U/L (38-126) 01/11/17 08:22 Troponin I 0.0260 ng/mL (0.00-0.120) 12/29/16 13:20 NT-Pro-B Natriuret Pep 645 pg/mL (0-900) 12/29/16 13:20 Total Protein 7.0 g/dL (6.3-8.3) 01/11/17 08:22 Albumin 3.1 g/dL (3.5-5.0) L 01/11/17 08:22 Globulin 3.9 gm/dL (2.2-3.9) 01/11/17 08:22 Albumin/Globulin Ratio 0.8 (1.0-2.1) L 01/11/17 08:22 Triglycerides 64 mg/dL (0-149) D 12/31/16 06:24 Cholesterol 116 mg/dL (0-199) 12/31/16 06:24 LDL Cholesterol Direct 56 mg/dL (0-129) 12/31/16 06:24 HDL Cholesterol 41 mg/dL (30-70) 12/31/16 06:24 Prostate Specific Ag 5.18 ng/mL (0.00-4.0) H 01/09/17 19:50 Vitamin B12 366 pg/mL (239-931) 01/01/17 06:15 Free T4 1.61 ng/dL (0.78-2.19) 01/02/17 05:50 TSH 3rd Generation 0.49 mIU/L (0.46-4.68) 01/02/17 05:50 Urine Color Yellow (YELLOW) 01/09/17 13:06 Urine Clarity Clear (Clear) 01/09/17 13:06 Urine pH 6.0 (5.0-8.0) 01/09/17 13:06 Ur Specific Conway 1.020 (1.003-1.030) 01/09/17 13:06 Urine Protein 1+ mg/dL (NEGATIVE) H 01/09/17 13:06 Urine Glucose (UA) Normal mg/dL (Normal) 01/09/17 13:06 Urine Ketones Negative mg/dL (NEGATIVE) 01/09/17 13:06 Urine Blood 2+ (NEGATIVE) H 01/09/17 13:06 Urine Nitrate Negative (NEGATIVE) 01/09/17 13:06 Urine Bilirubin Negative (NEGATIVE) 01/09/17 13:06 Urine Urobilinogen 4.0 mg/dL (0.2-1.0) 01/09/17 13:06 Ur Leukocyte Esterase Neg Maurizio/uL (Negative) 01/09/17 13:06 Urine WBC (Auto) 2 /hpf (0-5) 01/09/17 13:06 Urine RBC (Auto) 34 /hpf (0-3) H 01/09/17 13:06 Urine Bacteria Rare (<OCC) 12/29/16 16:10 Urine Osmolality 752 mosm/kg (300-1000) 01/09/17 Unknown Ur Random Creatinine 116.4 mg/dL 01/05/17 14:25 Ur Random Sodium 95 mmol/L 01/09/17 Unknown Urine Microalbumin 71.0 mg/L (0.0-16.6) H 01/05/17 14:25 Digoxin < 0.4 ng/mL (0.8-2.0) L 01/04/17 16:16 - Hospital Course Hospital Course: HPI: Patient is a 76 year old male PMHx of Hypertension, Hypercholesterolemia, DM2 who was found in the lobby having ataxic gait and was sent to the ED. As per patient he was not having any difficulties walking. He was seen in the ED on 12/28 for generalized weakness and fatigue and was discharged for dehydration syndrome. On this admission patient had no acute complaints but was oriented only to self; he believed it was 1987 and was not sure where he was. He reports that he had a fall on Wednesday which was witnessed by his girlfriend in a parking lot. He denies any loss of consciousness and believes he fell on his side and does not remember hitting his head. Patient reports he does not drink and has not had a drink in 14 years. He denied any acute headaches, dizziness, chest pain, difficulty breathing, abdominal pain, nausea, vomiting, bowel/bladder complaints, bowel/bladder incontinence, difficulty walking, pain in his legs bilaterally, easy bruising, easy bleeding, focal deficits, changes in weight/ appetite. Patient reports a lot of sick contacts in the nursing home. Hospital Course: Patient is a 76 y/o M who presented with ataxic gait and sent to ED. Head CT on admission showed interval mild worsening of the left subdural hematoma since previous exam, mild worsening of the mass effect on the left brain and left to right midline shift, effacement of the basilar Systane , subfalcine and transtentorial herniation, left side should be considered. Neurosurgery was consulted. Patient underwent craniotomy and cytolgy was sent which showed no malignant cells. Repeat CT showed status post insertion of extra-axial 2 bilateral frontal drainage catheters since prvious exam. Interval decrease in sixure of bilateral subdural hematomas, interval decrease in the size of the mass effect, effacement of the sulci, and left to right midline shift. Drains were removed and patient moved to medical floor He was noted to be hyponatremic and Nephrology was consulted. Urine studies were performed and was determined he most likely was suffering from cerebral salt wasting. He was placed on NS and salt tablets. His hyponatremia improved as did his mental status. He was able to tolerate PT and his diet. He was determined medically stable for discharge to rehab facility. Patient was transferred to [facility] for physical therapy. This is a brief summary of the patients stay at this facility. For more detail, see patient's full chart. - Date & Time of H&P Date of H&P: 12/29/16 Time of H&P: 14:45 Discharge Exam - Head Exam Head Exam: NORMOCEPHALIC. absent: ATRAUMATIC (well healing suture lines) - Eye Exam Eye Exam: EOMI, Normal appearance, PERRL Pupil Exam: NORMAL ACCOMODATION, PERRL - ENT Exam ENT Exam: Mucous Membranes Moist. absent: Normal Oropharynx (poor dentition) - Respiratory Exam Respiratory Exam: Clear to PA & Lateral, NORMAL BREATHING PATTERN, UNREMARKABLE. absent: Rales, Rhonchi, Wheezes - Cardiovascular Exam Cardiovascular Exam: Gallop, REGULAR RHYTHM, Rubs, +S1, +S2, Systolic Murmur (+ 2 right sternal border) - GI/Abdominal Exam GI & Abdominal Exam: Normal Bowel Sounds, Soft. absent: Tenderness - Extremities Exam Extremities exam: normal capillary refill, pedal pulses present Additional comments: bilateral lower extremities contracted, pain on extension - Back Exam Back exam: NORMAL INSPECTION. absent: rash noted, tenderness - Neurological Exam Neurological exam: Alert, CN II-XII Intact, Oriented x3 - Psychiatric Exam Psychiatric exam: Normal Affect, Normal Mood - Skin Skin Exam: Dry, Intact, Normal Color, Warm Discharge Plan - Follow Up Plan Condition: GOOD Disposition: TRANSF TO SNF Instructions: Subdural Hematoma (DC) Additional Instructions: Discharge patient to nursing facility. Have patient go to follow up with neurosurgery, neurology, and nephrology. Follow up appointment will need to be made. If the patient's condition worsens or new symptoms arise, please return to the emergency room. Referrals: Susy Deshpande MD [Staff Provider] - Marck Guzman MD [Staff Provider] - Matthew Gill MD [Staff Provider] - <Michael Garzon - Last Filed: 01/16/17 07:53> Provider - Provider Date of Admission: 12/29/16 14:33 Attending physician: Michael Garzon DO Hospital Course - Lab Results Lab Results: Micro Results 01/10/17 Unknown Urine,De Dios Urine Culture - Final No Growth (<1,000 CFU/ML) 01/05/17 08:54 Naris MRSA Culture (Admit) - Final MRSA NOT DETECTED 12/30/16 19:00 Naris MRSA Culture (Admit) - Final MRSA NOT DETECTED Most Recent Lab Values WBC 10.6 K/uL (4.8-10.8) 01/13/17 07:31 RBC 3.90 Mil/uL (4.40-5.90) L 01/13/17 07:31 Hgb 12.1 g/dL (12.0-18.0) 01/13/17 07:31 Hct 35.5 % (35.0-51.0) 01/13/17 07:31 MCV 91.1 fL (80.0-94.0) 01/13/17 07:31 MCH 31.0 pg (27.0-31.0) 01/13/17 07:31 MCHC 34.1 g/dL (33.0-37.0) 01/13/17 07:31 RDW 13.9 % (11.5-14.5) 01/13/17 07:31 Plt Count 395 K/uL (130-400) 01/13/17 07:31 MPV 8.1 fL (7.2-11.7) 01/13/17 07:31 Neut % (Auto) 82.0 % (50.0-75.0) H 01/11/17 08:22 Lymph % (Auto) 9.5 % (20.0-40.0) L 01/11/17 08:22 Wilson % (Auto) 7.6 % (0.0-10.0) 01/11/17 08:22 Eos % (Auto) 0.7 % (0.0-4.0) 01/11/17 08:22 Baso % (Auto) 0.2 % (0.0-2.0) 01/11/17 08:22 Neut # 9.1 K/uL (1.8-7.0) H 01/11/17 08:22 Lymph # 1.1 K/uL (1.0-4.3) 01/11/17 08:22 Wilson # 0.8 K/uL (0.0-0.8) 01/11/17 08:22 Eos # 0.1 K/uL (0.0-0.7) 01/11/17 08:22 Baso # 0.0 K/uL (0.0-0.2) 01/11/17 08:22 Neutrophils % (Manual) 83 % (50-75) H 01/11/17 08:22 Lymphocytes % (Manual) 10 % (20-40) L 01/11/17 08:22 Monocytes % (Manual) 4 % (0-10) 01/11/17 08:22 Eosinophils % (Manual) 3 % (0-4) 01/11/17 08:22 Basophils % (Manual) 1 % (0-2) 01/10/17 08:12 Platelet Estimate Normal (NORMAL) 01/11/17 08:22 Large Platelets Present 01/10/17 08:12 Giant Platelets Present 01/10/17 08:12 RBC Morphology Normal 01/04/17 08:15 Hypochromasia (manual) Slight 01/11/17 08:22 Poikilocytosis (manual Slight 01/11/17 08:22 Anisocytosis (manual) Slight 01/11/17 08:22 PT 12.2 SECONDS (9.7-12.2) 12/30/16 02:18 INR 1.1 12/30/16 02:18 APTT 27 SECONDS (21-34) 12/30/16 02:18 Sodium 130 mmol/L (132-148) L 01/13/17 07:31 Potassium 4.4 mmol/L (3.6-5.2) 01/13/17 07:31 Chloride 92 mmol/L (98-107) L 01/13/17 07:31 Carbon Dioxide 30 mmol/L (22-30) 01/13/17 07:31 Anion Gap 12 (10-20) 01/13/17 07:31 BUN 18 mg/dL (9-20) 01/13/17 07:31 Creatinine 0.7 MG/DL (0.8-1.5) L 01/13/17 07:31 Est GFR ( Amer) > 60 01/13/17 07:31 Est GFR (Non-Af Amer) > 60 01/13/17 07:31 POC Glucose (mg/dL) 185 mg/dL (65-110) H 01/13/17 21:04 Random Glucose 170 mg/dL (75-110) H 01/13/17 07:31 Hemoglobin A1c 6.8 % (4.2-6.5) H 12/29/16 13:20 Serum Osmolality 286 mosm/kg (272-300) 01/05/17 06:04 Uric Acid 5.8 mg/dL (3.5-8.5) 01/05/17 06:04 Calcium 8.6 mg/dl (8.6-10.4) 01/13/17 07:31 Phosphorus 4.0 mg/dL (2.5-4.5) 01/11/17 08:22 Magnesium 2.2 mg/dL (1.6-2.3) 01/11/17 08:22 Total Bilirubin 0.8 mg/dL (0.2-1.3) 01/11/17 08:22 AST 47 U/L (17-59) 01/11/17 08:22 ALT 45 U/L (21-72) 01/11/17 08:22 Alkaline Phosphatase 107 U/L (38-126) 01/11/17 08:22 Troponin I 0.0260 ng/mL (0.00-0.120) 12/29/16 13:20 NT-Pro-B Natriuret Pep 645 pg/mL (0-900) 12/29/16 13:20 Total Protein 7.0 g/dL (6.3-8.3) 01/11/17 08:22 Albumin 3.1 g/dL (3.5-5.0) L 01/11/17 08:22 Globulin 3.9 gm/dL (2.2-3.9) 01/11/17 08:22 Albumin/Globulin Ratio 0.8 (1.0-2.1) L 01/11/17 08:22 Triglycerides 64 mg/dL (0-149) D 12/31/16 06:24 Cholesterol 116 mg/dL (0-199) 12/31/16 06:24 LDL Cholesterol Direct 56 mg/dL (0-129) 12/31/16 06:24 HDL Cholesterol 41 mg/dL (30-70) 12/31/16 06:24 Prostate Specific Ag 5.18 ng/mL (0.00-4.0) H 01/09/17 19:50 Vitamin B12 366 pg/mL (239-931) 01/01/17 06:15 Free T4 1.61 ng/dL (0.78-2.19) 01/02/17 05:50 TSH 3rd Generation 0.49 mIU/L (0.46-4.68) 01/02/17 05:50 Urine Color Yellow (YELLOW) 01/09/17 13:06 Urine Clarity Clear (Clear) 01/09/17 13:06 Urine pH 6.0 (5.0-8.0) 01/09/17 13:06 Ur Specific Conway 1.020 (1.003-1.030) 01/09/17 13:06 Urine Protein 1+ mg/dL (NEGATIVE) H 01/09/17 13:06 Urine Glucose (UA) Normal mg/dL (Normal) 01/09/17 13:06 Urine Ketones Negative mg/dL (NEGATIVE) 01/09/17 13:06 Urine Blood 2+ (NEGATIVE) H 01/09/17 13:06 Urine Nitrate Negative (NEGATIVE) 01/09/17 13:06 Urine Bilirubin Negative (NEGATIVE) 01/09/17 13:06 Urine Urobilinogen 4.0 mg/dL (0.2-1.0) 01/09/17 13:06 Ur Leukocyte Esterase Neg Maurizio/uL (Negative) 01/09/17 13:06 Urine WBC (Auto) 2 /hpf (0-5) 01/09/17 13:06 Urine RBC (Auto) 34 /hpf (0-3) H 01/09/17 13:06 Urine Bacteria Rare (<OCC) 12/29/16 16:10 Urine Osmolality 752 mosm/kg (300-1000) 01/09/17 Unknown Ur Random Creatinine 116.4 mg/dL 01/05/17 14:25 Ur Random Sodium 95 mmol/L 01/09/17 Unknown Urine Microalbumin 71.0 mg/L (0.0-16.6) H 01/05/17 14:25 Digoxin < 0.4 ng/mL (0.8-2.0) L 01/04/17 16:16 Attending/Attestation - Attestation I have personally seen and examined this patient.: Yes I have fully participated in the care of the patient.: Yes I have reviewed all pertinent clinical information, including history, physical exam and plan: Yes Notes (Text): 01/16/17 07:51 Medical attending: Patient was seen and examined by me, agrees the above note by paramedical aide. It needs to be pointed out that the patient was actually discharged a few days ago and that this note is now being forwarded to me. Regardless the patient will need further monitoring at whatever future facility the patient will be at. As mentioned above patient had large bilateral subdural hematomas and required neurosurgery trauma removed these. Thank you very much, Michael Garzon
== END 2017-01-13 14:30 | DRG 1 ==
LOC: C.ER 11:51 → C.9E 14:33 → C.6T 17:13 → C.9I 12-30 17:01 → C.3T 01-05 09:38
PROVIDERS: ADMIT Hospitalist; ATTEND Hospitalist
PROC: 0WC10ZZ Extirpation of Matter from Cranial Cavity, Open Approach (ICD-10-PCS; principal; 2016-12-30 13:45)
DX: I62.00 Nontraumatic subdural hemorrhage, unspecified (principal); F03.90 Unspecified dementia, unspecified severity, without behavioral disturbance, psychotic disturbance, mood disturbance, and anxiety; G93.6 Cerebral edema; E22.2 Syndrome of inappropriate secretion of antidiuretic hormone; I95.9 Hypotension, unspecified; G40.89 Other seizures; E11.9 Type 2 diabetes mellitus without complications; E86.0 Dehydration; Z59.0 Homelessness; R27.0 Ataxia, unspecified; I10 Essential (primary) hypertension; E78.00 Pure hypercholesterolemia, unspecified; E78.5 Hyperlipidemia, unspecified; I44.0 Atrioventricular block, first degree; Z79.4 Long term (current) use of insulin; I49.3 Ventricular premature depolarization; K59.00 Constipation, unspecified; R25.3 Fasciculation

== ENCOUNTER 2018-12-15 10:07 | Outpatient (CLI) | payer MEDICAID | END 2018-12-15 10:08 | disposition home or self-care (01) | LOC: C.CARD 10:07 | DX: I50.22 Chronic systolic (congestive) heart failure (principal); Z95.810 Presence of automatic (implantable) cardiac defibrillator ==